=== PATIENT | female | born 1950 | race Caucasian/White ===

== ENCOUNTER 2018-02-01 12:34 | Outpatient (CLI) | payer MEDICARE, OTHER ==
--- NOTE | 2018-02-01 16:10 | DEXA Report ---
DEXA SCAN: 02/01/2018 CLINICAL INDICATION: Postmenopausal, arthritis. TECHNIQUE: Dual energy x-ray absorptiometry (DXA) was performed on a [employer] system. Regions measured are the AP spine, femoral neck, and, if needed, forearm. COMPARISON: None. In accordance with the International Society for Clinical Densitometry (ISCD) guidelines, data from previous exams may be reanalyzed using current recommendations and techniques. This is done to allow a more accurate basis for comparison with the current study. FINDINGS The data for the lumbar spine is as follows: REGION BMD (g/cm/cm) T-SCORE Z-SCORE L1 0.857 -2.3 -1.6 L2 0.951 -2.1 -1.4 L3 0.993 -1.7 -1.0 L4 1.015 -1.5 -0.8 L1-L4 0.963 -1.8 -1.1 NOTE: All evaluable vertebrae are used for classification. The data for the hip is as follows: REGION BMD (g/cm/cm) T-SCORE Z-SCORE Neck 0.784 -1.8 -0.9 TOTAL 0.803 -1.6 -1.0 NOTE: The femoral neck or total proximal femur, whichever is lowest, is used for classification. IMPRESSION THE WHO CLASSIFICATION BASED ON THE INTERNATIONAL REFERENCE STANDARD IS OSTEOPENIA. THE FRACTURE RISK IS INCREASED. RECOMMENDATION: Patients with diagnosis of osteoporosis or osteopenia should have regular bone mineral density assessment. For those eligible for Medicare, routine testing is allowed once every 2 years. Testing frequency can be increased for patients who have rapidly progressing disease or for those who are receiving medical therapy to restore bone mass. COMMENT: World Health Organization (WHO) definitions for osteoporosis and osteopenia: NORMAL BMD: T-score at 1.0 or higher, fracture risk is low. OSTEOPENIA BMD: T-score between 1.0 and -2.5, fracture risk is increased. OSTEOPOROSIS BMD: T-score at 2.5 or lower, fracture risk high. National Osteoporosis Foundation recommends: 1. Obtain adequate dietary calcium (at least 1200 mg per day) and vitamin D (400 -800 international units per day). 2. Participate, as appropriate, in regular weightbearing and muscle- strengthening exercise. 3. Avoid tobacco use and reduce alcohol and caffeine intake. 4. For more detailed information see the website at www.NOF.org. TD: 02/01/2018 15:04 LISSA
== END 2018-02-01 12:35 | disposition home or self-care (01) ==
LOC: DI 12:34
PROVIDERS: ATTEND Family Medicine
DX: M19.90 Unspecified osteoarthritis, unspecified site (principal); Z78.0 Asymptomatic menopausal state; M85.89 Other specified disorders of bone density and structure, multiple sites
CPT/HCPCS: 77080

== ENCOUNTER 2021-07-07 07:00 | Outpatient (CLI) | payer MEDICARE, OTHER ==
--- NOTE | 2021-07-08 12:12 | XRAY Report ---
PROCEDURE: Ribs 2 View RT INDICATIONS: R SIDE RIB PX TECHNIQUE: 2 views of the right ribs were acquired. COMPARISON: None FINDINGS: Surgical changes and devices: None. Bones and chest wall: No fractures or dislocations. No suspicious bony lesions. Overlying soft tis sues appear unremarkable. Lungs and pleura: The visualized lung appears clear. No pleural effusions or pneumothorax are visib le. IMPRESSION: No displaced rib fracture. Reviewed by: Deidre Meléndez MD, PhD on 07/08/2021 12:10 PM PDT Approved by: Deidre Meléndez MD, PhD on 07/08/2021 12:10 PM PDT Station ID: [id number]
== END 2021-07-07 23:59 | disposition home or self-care (01) ==
LOC: DI.N 07:00
PROVIDERS: ATTEND Family Medicine
DX: R07.81 Pleurodynia (principal)

== ENCOUNTER 2022-05-25 08:52 | Outpatient (CLI) | payer OTHER ==
--- NOTE | 2022-05-25 11:49 | XRAY Report ---
PROCEDURE: Chest 2 View X-Ray INDICATIONS: GROUND LEVEL FALL WITH L SIDED RIB PX TECHNIQUE: 2 view(s) of the chest. COMPARISON: None. FINDINGS: Surgical changes and devices: None. Lungs and pleura: No pleural effusions or pneumothorax. Lungs are clear. Mediastinum: Mediastinal contours are normal. Heart size is normal. Bones and chest wall: No suspicious bony abnormalities. Soft tissues appear unremarkable. IMPRESSION: No acute pulmonary process. Reviewed by: Coretta Wade MD on 05/25/2022 11:47 AM PDT Approved by: Coretta Wade MD on 05/25/2022 11:47 AM PDT Station ID: [id number]
== END 2022-05-25 08:53 | disposition home or self-care (01) ==
LOC: DI.N 08:52
PROVIDERS: ATTEND Physician Assistant
DX: R07.81 Pleurodynia (principal)

== ENCOUNTER 2023-09-07 09:55 | Outpatient (CLI) | payer MEDICARE ==
--- NOTE | 2023-09-07 10:43 | XRAY Report ---
PROCEDURE: Foot 3 View BILAT INDICATIONS: BILATERAL FOOT PX TECHNIQUE: 3 views of the foot were acquired. COMPARISON: None. FINDINGS: Bones: No fractures or dislocations. No suspicious bony lesions. Bilateral scattered areas of mild IP narrowing. No erosions. It is most prominent at the first MTP joint bilaterally. Soft tissues: No suspicious soft tissue calcifications or masses. IMPRESSION: Bilateral scattered areas of mild IP arthritic change. Reviewed by: Coretta Wade MD on 09/07/2023 10:41 AM PDT Approved by: Coretta Wade MD on 09/07/2023 10:41 AM PDT Station ID: [id number]
== END 2023-09-07 09:56 | disposition home or self-care (01) ==
LOC: DI 09:55
PROVIDERS: ATTEND Podiatrist
DX: M19.071 Primary osteoarthritis, right ankle and foot (principal); M19.072 Primary osteoarthritis, left ankle and foot

== ENCOUNTER 2023-09-12 08:17 | Outpatient (CLI) | payer MEDICARE ==
--- NOTE | 2023-09-12 12:17 | CT Report ---
PROCEDURE: ABDOMEN/PELVIS WO INDICATIONS: RECURRENT UTI TECHNIQUE: A CT scan of the abdomen and pelvis was performed without the use of intravenous contrast. Images we re recorded and evaluated at appropriate window settings. Reformats: coronal and sagittal. For radiat ion dose reduction, the following was used: automated exposure control, adjustment of mA and/or kV ac cording to patient size. COMPARISON: None. FINDINGS: Image quality: Excellent. Lung bases and heart: Unremarkable. Liver: No solid mass. Coarse calcification at the dome. Gallbladder and biliary tree: No radiopaque stones or wall thickening. No biliary dilation. Spleen: No splenomegaly. Pancreas: No pancreatic ductal dilation. Adrenals: No adrenal nodule. Kidneys and ureters: No hydronephrosis. No renal cystic lesion which requires follow up. No solid mas s. 1 cm nonobstructing stone in the superior calyx of the left kidney. Bowel and peritoneum: No bowel distension. No pathologic free fluid. Diverticulosis without evidence of diverticulitis. Fecal debris within the small bowel. Lymph nodes: No central or retroperitoneal adenopathy. Vessels: No infrarenal aortic aneurysm. PELVIS Reproductive organs: Calcified uterine fibroid.. Bladder: No wall thickness, accounting for underdistention. Pelvic lymph nodes: No pelvic adenopathy by size criteria. Bones: No aggressive osseous abnormality. Degenerative disc disease and facet arthrosis. Grade 1 ante rolisthesis of L4 on L5 secondary to facet arthrosis. Other: Trace umbilical hernia containing fat. IMPRESSION: No hydronephrosis or obstructing renal stone. 1 cm nonobstructing left-sided nephrolithiasis. Colonic diverticulosis without evidence of diverticulitis. Fecal debris within the small bowel, which may indicate small intestinal bacterial overgrowth versus slow intestinal transit. Reviewed by: Herb Almeida on 09/12/2023 12:15 PM PDT Approved by: Herb Almeida on 09/12/2023 12:15 PM PDT Station ID: [id number]
== END 2023-09-12 08:18 | disposition home or self-care (01) ==
LOC: DI 08:17
PROVIDERS: ATTEND Physician Assistant
DX: N20.0 Calculus of kidney (principal); K57.30 Diverticulosis of large intestine without perforation or abscess without bleeding; R39.15 Urgency of urination; R31.9 Hematuria, unspecified

== ENCOUNTER 2023-11-10 14:07 | Outpatient (CLI) | payer MEDICARE ==
--- NOTE | 2023-11-10 17:32 | Ultrasound Report ---
PROCEDURE: Pelvic w/Transvaginal INDICATIONS: LEIOMYOMA OF UTERUS TECHNIQUE: Real-time scanning was performed of the pelvic organs, with image documentation. Additional endovagi nal scanning was necessary due to incomplete visualization of the adnexal and endometrial structures by transabdominal scanning. COMPARISON: None. FINDINGS: Uterus: Uterus is anteverted and normal in size at 6.7 x 3.5 x 4.9 cm. (Volume of 60.23) The myomet rium is heterogeneous. The endometrium measures 3 mm in combined thickness. Nabothian cysts measuri ng 3.8 x 0.6 x 0.7 cm. Cervix and vagina are otherwise within normal limits. Multiple uterine fibroid s. -Right fundal, intramural, measures 1.1 x 1.6 x 0.7 cm, calcified -Mid anterior intramural, measures 1.3 x 0.9 x 0.9 cm -Mid posterior intramural measures 1.4 x 1.2 x 1.1 cm Ovaries: The right ovary measures 1.9 x 1.3 x 1.4 cm, with a calculated ovarian volume of 1.8 cc. T he left ovary is not well seen. The right ovary has a normal sonographic appearance with less than 1 2 follicles. No adnexal masses are seen. No cystic lesions measuring greater than 3 cm. Other: No pathologic free abdominal or pelvic fluid. IMPRESSION: 1.Fibroid uterus. 2.Endometrial thickness is 3 mm. 3.Left ovary is not well seen. Normal right ovary. Reviewed by: Urban Sanchez MD on 11/10/2023 5:31 PM PST Approved by: Urban Sanchez MD on 11/10/2023 5:31 PM PST Station ID: [id number]
== END 2023-11-10 14:08 | disposition home or self-care (01) ==
LOC: DI 14:07
PROVIDERS: ATTEND Physician Assistant
DX: D25.1 Intramural leiomyoma of uterus (principal)

== ENCOUNTER 2023-11-23 08:00 | Outpatient (CLI) | payer MEDICARE ==
[2023-11-23 16:00] LABS: BILIRUBIN,URINE NEGATIVE (NEGATIVE); GLUCOSE, URINE (UA) NEGATIVE (NEGATIVE); KETONES,URINE (UA) NEGATIVE (NEGATIVE); LEUKOCYTE ESTERASE, URINE TRACE (NEGATIVE); NITRITE,URINE NEGATIVE (NEGATIVE); OCCULT BLOOD,URINE NEGATIVE (NEGATIVE); PROTEIN,URINE TRACE mg/dL (NEGATIVE); UROBILINOGEN,URINE 0.2 (NORMAL) E.U./dL (NORMAL)
[2023-11-23 16:10] LABS: CLARITY,URINE CLOUDY (CLEAR)
[2023-11-23 16:17] LABS: AMORPHOUS SEDIMENT,UR Marked /LPF; BACTERIA,URINE None Seen /HPF (None Seen); RBC,URINE None Seen /HPF (0-5); SQUAMOUS EPITHELIAL CELL,UR RARE Squamous (<= Few); WBC,URINE 0-3 /HPF (0-5)
== END 2023-11-23 23:59 | disposition home or self-care (01) ==
LOC: LAB 08:00
PROVIDERS: ATTEND Urology
DX: Z87.440 Personal history of urinary (tract) infections (principal)
CPT/HCPCS: 81001; 87086

== ENCOUNTER 2023-12-26 06:56 | Outpatient (CLI) | payer MEDICARE | END 2023-12-26 23:59 | disposition critical access hospital (66) | LOC: EMS 06:56 | DX: R53.1 Weakness (principal); M79.672 Pain in left foot; R60.0 Localized edema; N20.0 Calculus of kidney | CPT/HCPCS: A0425; A0429 ==

== ENCOUNTER 2023-12-26 07:19 | Emergency (ER) | payer MEDICARE ==
[2023-12-26] MEDS ORDERED: SODIUM CHLORIDE 0.9% 1,000 ML IV STA (07:31)
[2023-12-26] MEDS ORDERED: ACETAMINOPHEN 325 MG TABLET PO STA (07:32)
[2023-12-26 08:00] LABS: BASOPHILS # (AUTO) 0.1 10^3/uL (0.0-0.1); BASOPHILS % (AUTO) 0.4 %; HCT - HEMATOCRIT 38.7 % (37.0-47.0); LYMPHOCYTES # (AUTO) 0.8 10^3/uL (1.5-3.5); LYMPHOCYTES % (AUTO) 5.3 %; MEAN CORPUSCULAR HEMOGLOBIN 27.1 pg (27.0-31.0); MEAN CORPUSCULAR VOLUME 87.6 fL (81.0-99.0); MEAN PLATELET VOLUME 9.9 fL (7.9-10.8); MONOCYTES # (AUTO) 1.4 10^3/uL (0.0-1.0); MONOCYTES % (AUTO) 9.1 %; NEUTROPHILS # (AUTO) 13.5 10^3/uL (1.5-6.6); NEUTROPHILS % (AUTO) 84.8 %; PLT - PLATELET COUNT 346 10^3/uL (130-450); RED BLOOD COUNT 4.42 10^6/uL (4.20-5.40); RED CELL DISTRIBUTION WIDTH 13.8 % (12.0-15.0); WHITE BLOOD COUNT 15.9 x10^3/uL (4.8-10.8)
[2023-12-26 08:05] LABS: ALBUMIN 3.7 g/dL (3.2-5.5); BILIRUBIN,TOTAL 0.7 mg/dL (0.2-1.0); CALCIUM 9.7 mg/dL (8.5-10.3); CREATININE 0.9 mg/dL (0.6-1.3); POTASSIUM 3.9 mmol/L (3.5-4.5); TOTAL PROTEIN 7.5 g/dL (6.4-8.9)
[2023-12-26 08:16] LABS: BILIRUBIN,URINE SMALL (NEGATIVE); GLUCOSE, URINE (UA) 100 mg/dL (NEGATIVE); KETONES,URINE (UA) 15 mg/dL (NEGATIVE); LEUKOCYTE ESTERASE, URINE SMALL (NEGATIVE); NITRITE,URINE NEGATIVE (NEGATIVE); OCCULT BLOOD,URINE MODERATE (NEGATIVE); PROTEIN,URINE 100 mg/dL (NEGATIVE); UROBILINOGEN,URINE 0.2 (NORMAL) E.U./dL (NORMAL)
[2023-12-26 08:24] LABS: CLARITY,URINE SL. CLOUDY (CLEAR)
--- NOTE | 2023-12-26 08:48 | XRAY Report ---
PROCEDURE: Chest 1V INDICATIONS: weak TECHNIQUE: One view of the chest was acquired. COMPARISON: Chest x-ray 05/17/2022 FINDINGS: Surgical changes and devices: None. Lungs and pleura: No pleural effusions or pneumothorax. Lungs are clear. Mediastinum: Mediastinal contours appear normal. Heart size is normal. Bones and chest wall: No suspicious bony lesions. Overlying soft tissues appear unremarkable. IMPRESSION: No acute cardiopulmonary process. Reviewed by: Coretta Wade MD on 12/26/2023 8:46 AM [facility] Approved by: Coretta Wade MD on 12/26/2023 8:46 AM [facility] Station ID: [id number]
--- NOTE | 2023-12-26 08:49 | XRAY Report ---
PROCEDURE: Knee 3V BL INDICATIONS: pain TECHNIQUE: 3 views of the knee(s) were acquired. COMPARISON: None. FINDINGS: Bones: No fractures or dislocations. No suspicious bony lesions. Moderate bilateral medial as wel l as patellofemoral compartment narrowing. Very minimal lateral compartment narrowing is present. Lat eral patellar subluxation is present. No erosions. Soft tissues: No knee joint effusion. No suspicious soft tissue calcifications or masses. Bilateral chondrocalcinosis. IMPRESSION: Predominantly bicompartmental arthritic change most severe medially as above. Reviewed by: Coretta Wade MD on 12/26/2023 8:48 AM PST Approved by: Coretta Wade MD on 12/26/2023 8:48 AM PST Station ID: [id number]
[2023-12-26 08:51] LABS: WBC,URINE >25 /HPF (0-5)
[2023-12-26 08:52] LABS: BACTERIA,URINE Moderate /HPF (None Seen); SQUAMOUS EPITHELIAL CELL,UR MOD Squamous (<= Few)
[2023-12-26 08:53] LABS: CASTS, URINE 6-10 Granular Casts /LPF
[2023-12-26] MEDS ORDERED: METOPROLOL SUCCINATE 50 MG TABLET PO STA (09:00)
--- NOTE | 2023-12-26 09:36 | ED Physician Documentation ---
History of Present Illness - Stated complaint Stated Complaint: GENERAL WEAKNESS - Chief complaint Chief Complaint: Ext Problem - History obtained from History obtained from: Patient, Family - Additonal information Additional information: Patient is a 73-year-old female with a history of insulin-dependent diabetes presenting for evaluation of generalized weakness. She was scheduled for an elective lithotripsy this morning when she was unable to stand due to weakness in her legs.She also reports having pain in both knees. Denies other falls. Patient has had leg weakness ongoing for several weeks to months. Per the daughter she has primarily been laying in bed And ambulates only a little with a walker. She did not hit her head this morning. Patient reports she just did not feel strong enough to stand. She denies fever, chest pain, shortness of breath, abdominal symptoms, vomiting or diarrhea. She denies dysuria. But she does have a history of frequent urinary tract infections. She was scheduled for the elective procedure with Dr. Haile Monae. Review of Systems Constitutional: denies: Fever Cardiac: denies: Chest pain / pressure Respiratory: denies: Dyspnea, Cough GI: denies: Abdominal Pain, Vomiting, Diarrhea : denies: Dysuria Musculoskeletal: reports: Extremity pain Neurologic: reports: Generalized weakness. denies: Head injury PD PAST MEDICAL HISTORY - Past Medical History Past Medical History: Yes Cardiovascular: Hypertension, High cholesterol Neuro: Other Endocrine/Autoimmune: Type 2 diabetes : Kidney stones Psych: Depression, Anxiety Musculoskeletal: Osteopenia - Past Surgical History Past Surgical History: No - Present Medications Home Medications: Ambulatory Orders Medication Instructions Recorded Confirmed Aspirin EC [Ecotrin] 81 mg PO DAILY 11/15/23 12/19/23 Insulin Glargine [Lantus Solostar] 20 units SUBQ QPM 11/15/23 12/19/23 Losartan/Hydrochlorothiazide 1 each PO DAILY 11/15/23 12/19/23 [Losartan-Hctz 100-12.5 mg Tab] Metformin HCl 1,000 mg PO BID 11/15/23 12/19/23 Pantoprazole Sodium 40 mg PO DAILY 11/15/23 12/19/23 Rosuvastatin Calcium 20 mg PO QPM 11/15/23 12/19/23 amLODIPine [Norvasc] 5 mg PO DAILY 11/15/23 12/19/23 Metoprolol Succinate [Toprol Xl] 50 mg PO DAILY 12/19/23 12/19/23 HYDROcod/ACETAM 5/325 [[place] 5/325] 1 tablet PO Q6H PRN #10 tablet 12/26/23 Lidocaine Patch 5% [Lidoderm Patch] 1 patch TOP DAILY PRN #10 patch 12/26/23 cephALEXin [Keflex] 500 mg PO Q6H #28 cap 12/26/23 - Allergies Allergies/Adverse Reactions: Allergies Allergy/AdvReac Type Severity Reaction Status Date / Time No Known Drug Allergies Allergy Verified 12/26/23 07:37 - Social History Does the pt smoke?: No Smoking Status: Never smoker Does the pt drink ETOH?: No Does the pt have substance abuse?: No - Immunizations Immunizations are current?: No - POLST Patient has POLST: No PD ED PE NORMAL - General General: Alert and oriented X 3, No acute distress, Well developed/nourished - HEENT HEENT: Atraumatic, Moist mucous membranes, Pharynx benign - Neck Neck: Supple, no meningeal sign - Cardiac Cardiac: Other (Tachycardic, regular rhythm) - Respiratory Respiratory: No respiratory distress, Clear bilaterally - Abdomen Abdomen: Normal bowel sounds, Soft, Non tender, Non distended - Derm Derm: Warm and dry - Extremities Extremities: No deformity, No edema, No calf tenderness / cord, Other (Pain on range of motion of both knees with no visible deformity, no swelling, no erythema; Patellar reflexes intact bilaterally) - Neuro Neuro: Alert and oriented X 3, No motor deficit, No sensory deficit, Normal speech Results - Vitals Vitals: Vital Signs - 24 hr 12/26/23 12/26/23 12/26/23 07:23 08:17 09:20 Temperature 36.5 C Heart Rate 124 H 104 H 104 H Heart Rate [ Supine] Respiratory 16 18 16 Rate Blood Pressure 146/78 H 147/85 H 144/71 H Blood Pressure [Sitting] Blood Pressure [Supine] O2 Saturation 100 94 93 12/26/23 12/26/23 12/26/23 09:49 13:00 13:46 Temperature Heart Rate 97 92 Heart Rate [ 96 Supine] Respiratory 16 16 Rate Blood Pressure 132/73 H 134/73 H Blood Pressure 140/76 H [Sitting] Blood Pressure 137/76 H [Supine] O2 Saturation 94 93 12/26/23 16:19 Temperature Heart Rate 102 H Heart Rate [ Supine] Respiratory 16 Rate Blood Pressure 138/64 H Blood Pressure [Sitting] Blood Pressure [Supine] O2 Saturation 98 Oxygen O2 Source Room air - EKG (time done) 0809 EKG releavant findings:: EKG personally interpreted by author of this note. Relevant findings are: Rate 113, sinus tachycardia, no STEMI, QTc 440 - Labs Labs: Laboratory Tests 12/26/23 12/26/23 12/26/23 07:46 07:46 07:46 WBC 15.9 H RBC 4.42 Hgb 12.0 Hct 38.7 MCV 87.6 MCH 27.1 MCHC 31.0 L RDW 13.8 Plt Count 346 MPV 9.9 Neut # (Auto) 13.5 H Lymph # (Auto) 0.8 L Scott # (Auto) 1.4 H Eos # (Auto) 0.0 Baso # (Auto) 0.1 Absolute Nucleated RBC 0.00 Nucleated RBC % 0.0 Sodium 136 Potassium 3.9 Chloride 100 L Carbon Dioxide 27 Anion Gap 9.0 BUN 22 H Creatinine 0.9 Estimated GFR (MDRD) 62 L Glucose 342 H Lactic Acid 1.2 Calcium 9.7 Total Bilirubin 0.7 AST 17 ALT 10 Alkaline Phosphatase 84 Total Creatine Kinase 119 Troponin I High Sens Total Protein 7.5 Albumin 3.7 Globulin 3.8 Albumin/Globulin Ratio 1.0 Lipase 47 Urine Color Urine Clarity Urine pH Ur Specific [place] Urine Protein Urine Glucose (UA) Urine Ketones Urine Occult Blood Urine Nitrite Urine Bilirubin Urine Urobilinogen Ur Leukocyte Esterase Urine RBC Urine WBC Ur Squamous Epith Cells Urine Bacteria Urine Casts Ur Microscopic Review Urine Culture Comments 12/26/23 12/26/23 12/26/23 07:46 08:06 09:11 WBC RBC Hgb Hct MCV MCH MCHC RDW Plt Count MPV Neut # (Auto) Lymph # (Auto) Scott # (Auto) Eos # (Auto) Baso # (Auto) Absolute Nucleated RBC Nucleated RBC % Sodium Potassium Chloride Carbon Dioxide Anion Gap BUN Creatinine Estimated GFR (MDRD) Glucose Lactic Acid Calcium Total Bilirubin AST ALT Alkaline Phosphatase Total Creatine Kinase Troponin I High Sens 21.9 H* 25.4 H* Total Protein Albumin Globulin Albumin/Globulin Ratio Lipase Urine Color YELLOW Urine Clarity SL. CLOUDY Urine pH 6.0 Ur Specific [place] >=1.030 H Urine Protein 100 H Urine Glucose (UA) 100 H Urine Ketones 15 H Urine Occult Blood MODERATE H Urine Nitrite NEGATIVE Urine Bilirubin SMALL H Urine Urobilinogen 0.2 (NORMAL) Ur Leukocyte Esterase SMALL H Urine RBC 11-25 H Urine WBC >25 H Ur Squamous Epith Cells MOD Squamous H Urine Bacteria Moderate H Urine Casts 6-10 Granular Casts Ur Microscopic Review INDICATED Urine Culture Comments NOT INDICATED PD Medical Decision Making - ED course Complexity details: reviewed results, re-evaluated patient, d/w patient, d/w family ED course: Patient is a 73-year-old female who was scheduled for an elective Surgical procedure today presenting for evaluation of generalized weakness which has been worsening over at least the past 1 week. She reports pain to bilateral knees. She was unable to get up today due to her weakness and pain. Otherwise denies falls. She is tachycardic upon arrival. Otherwise vital signs are stable. Labs including CBC, chemistries, lactic, urinalysis were obtained and reviewed. Mild leukocytosis of 15,000.High sensitive troponin is 21 and 25 on the recheck. I do not think this suggest ACS. She also does not have symptoms of chest pain or shortness of air. Her EKG is nonischemic. Urine analysis which was a straight cath does have some markers for infection I did add a urine culture. She is prone to urine infections as that she often wears a diaper due to her weakness and is a diabetic. I will treat. She does not appear to be septic. I did obtain order a CT scan of the abdomen and pelvis which is negative for acute process. Dr. Monae is aware of the kidney stone and does not feel this is a contributing factor today. She is doing better here after IV fluids and Tylenol and is able to ambulate a little bit with a walker. At this time I see no reasons for medical admission. She has no red flag signs or symptoms in regards to her back pain.Patient was seen by social work per the daughter's request. PT and OT were consulted and evaluated the patient. She does not meet criteria for SNF placement. Home health has been ordered. Patient and daughter are understanding that patient needs close follow-up with her primary care provider. They are advised on treatment plan including home health and antibiotics. They are advised on concerning symptoms to return for. Departure - Departure Disposition: 01 Home, Self Care Clinical Impression: Generalized weakness, Bilateral knee pain, UTI (urinary tract infection) Condition: Stable Instructions: ED Knee Pain [facility], ED UTI Cystitis Female, ED Weakness [facility] Prescriptions: cephALEXin [Keflex] 500 mg PO Q6H #28 cap Lidocaine Patch 5% [Lidoderm Patch] 1 patch TOP DAILY PRN #10 patch PRN Reason: pain HYDROcod/ACETAM 5/325 [[place] 5/325] 1 tablet PO Q6H PRN #10 tablet PRN Reason: Pain Comments: I am sending prescriptions for pain medication as well as an antibiotic [facility] [place]. I have placed an order for home health. You have been evaluated by social work. I would recommend close follow-up with your primary care provider regarding your recent symptoms. You will also need to reschedule the surgery that was supposed to happen this morning. Return to the emergency department any worsening symptoms. I am prescribing a short course of narcotic pain medication for you. These are potentially dangerous and addictive medications that should be used carefully. These medications may constipate you. Take an [id number]-[id number] stool softener (docusate) twice daily with plenty of water while taking these medications. If you go 24 hours without a bowel movement, take [id number] miralax, per package instructions. Do not drink or drive while taking these medications. If you received narcotic or sedating medications while in the emergency department, do not drive for 24 hours. Store this medication in a safe, secure place and out of reach of children. It is a violation of federal law to give or sell this medication to another person or to use in a manner other than prescribed. The ED will not refill narcotic prescriptions, including prescriptions lost or stolen. To dispose of unwanted medications: 1. [facility] at [address] in [place] has a medication drop box. They accept prescription medications (in pill form) Tuesday through Tuesday 9:00 a.m. to 5:00 p.m. 2. The [facility] [place] [employer] accepts prescription medications (in pill form only) for disposal year round. Call for more informat ion. 3. Contact the [facility] for the next [facility] sponsored prescription drug collection event. , [phone], or [phone]; Note that many narcotic pain relievers also contain Tylenol/acetaminophen. Please ensure that your total dose of acetaminophen from all sources does not exceed 3 g (3000 mg) per day. Forms: PCP List Discharge Date/Time: 12/26/23 16:19
[2023-12-26] MEDS ORDERED: iohexoL-300 100 ML VIAL ONE (10:54)
[2023-12-26] MEDS ORDERED: iohexoL-300 100 ML VIAL IVP ONE (11:19)
--- NOTE | 2023-12-26 11:54 | CT Report ---
PROCEDURE: Abdomen/Pelvis W INDICATIONS: low back pain, wbc 15; uti CONTRAST: Omni 300 100ml TECHNIQUE: After the administration of intravenous contrast, a CT scan of the abdomen and pelvis was performed. Images were recorded and evaluated at appropriate window settings. Reformats: coronal and sagittal. F or radiation dose reduction, the following was used: automated exposure control, adjustment of mA and /or kV according to patient size. COMPARISON: None. FINDINGS: Image quality: Excellent. Lung bases and heart: Unremarkable. Liver: No solid mass. Gallbladder and biliary tree: Within normal limits Spleen: No splenomegaly. Pancreas: No pancreatic ductal dilation. Adrenals: No adrenal nodule. Kidneys and ureters: No hydronephrosis. No renal cystic lesion which requires follow up. No solid mas s. Nonobstructing left superior pole renal calculus measuring 11 mm. Bowel and peritoneum: Small hiatal hernia. No bowel distension. No pathologic free fluid. Normal appe ndix. Lymph nodes: No central or retroperitoneal adenopathy. Vessels: No infrarenal aortic aneurysm. PELVIS Reproductive organs: Unremarkable. Bladder: No abnormal wall thickening, accounting for underdistention. Pelvic lymph nodes: No pelvic adenopathy by size criteria. Bones: No aggressive osseous abnormality. Other: No significant ventral or inguinal hernia. IMPRESSION: 1. No acute process. 2. Normal appendix. 3. Nonobstructing left renal calculus. 4. Small hiatal hernia. Reviewed by: Justin Mercer MD on 12/26/2023 11:52 AM [facility] Approved by: Justin Mercer MD on 12/26/2023 11:52 AM [facility] Station ID: [id number]
[2023-12-26] MEDS ORDERED: cephALEXin 250 MG CAPSULE PO STA (13:03)
[2023-12-26 16:27] VITALS: BP 138/64; O2SAT 98
== END 2023-12-26 16:19 | disposition home or self-care (01) ==
LOC: EDUNIT# → ED 07:19
DX: R53.1 Weakness (principal); N39.0 Urinary tract infection, site not specified; M25.562 Pain in left knee; M25.561 Pain in right knee; E11.9 Type 2 diabetes mellitus without complications; Z79.4 Long term (current) use of insulin; I10 Essential (primary) hypertension
CPT/HCPCS: 36415; 51701; 71045; 73562; 74177; 80053; 81001; 82550; 83605; 83690; 84484; 85025; 87086; 93005; 96360; 97162; 97167; 99284; A9270; Q9967; 81003

== ENCOUNTER 2024-01-30 08:58 | Day surgery (SDC) | payer MEDICARE ==
[2024-01-30] MEDS: LACTATED RINGERS 1,000 ML IV ONE ×2 (09:15→11:13)
[2024-01-30] MEDS ORDERED: PROPOFOL 200 MG/20 ML VIAL IVP ONE (09:36)
[2024-01-30] MEDS ORDERED: MIDAZOLAM 2 MG/2 ML VIAL ONE (09:36)
[2024-01-30] MEDS ORDERED: fentaNYL 100 MCG/2 ML VIAL ONE (09:36)
[2024-01-30] MEDS ORDERED: HYDROmorphone 0.5 MG/0.5 ML SYRINGE IVP PRN (10:05)
[2024-01-30] MEDS ORDERED: fentaNYL 100 MCG/2 ML VIAL IVP PRN (10:05)
[2024-01-30] MEDS ORDERED: MORPHINE 2 MG/ML CARPUJECT IVP PRN (10:05)
[2024-01-30] MEDS ORDERED: METOCLOPRAMIDE 10 MG/2 ML VIAL IVP PRN (10:05)
[2024-01-30] MEDS ORDERED: ATROPINE ABBOJECT 1 MG/10 ML SYRINGE IVP PRN (10:05)
[2024-01-30] MEDS ORDERED: ONDANSETRON 4 MG/2 ML VIAL IVP PRN ×2 (10:05→11:19)
[2024-01-30] MEDS ORDERED: NALOXONE 0.4 MG/ML VIAL IVP PRN (10:05)
[2024-01-30] MEDS ORDERED: ePHEDrine 50 MG/ML VIAL IVP PRN (10:05)
--- NOTE | 2024-01-30 10:06 | ANESTHESIA ---
Pre-Anesthesia VS, & Labs - Diagnosis kidney stone - Procedure ESWL Vital Signs: Temp Pulse Resp BP Pulse Ox O2 Flow Rate 36.6 C 88 15 131/83 H 100 01/30/24 09:00 01/30/24 09:00 01/30/24 09:00 01/30/24 09:00 01/30/24 09:00 Height: 5 ft 3 in Weight (kg): 82.5 kg Body Mass Index: 32.2 BMI Classification: Obese - NPO >8 hours - Is Patient ?: No, Not Applicable - Lab Results Current Lab Results: Laboratory Tests 01/30/24 09:18: POC Whole Bld Glucose 189 H Home Medications and Allergies Home Medications: Ambulatory Orders Acetaminophen [Tylenol] 1,300 mg PO Q6H PRN 01/30/24 Aspirin EC [Ecotrin] 81 mg PO DAILY 11/15/23 Insulin Glargine [Lantus Solostar] 22 units SUBQ QPM 11/15/23 Losartan/Hydrochlorothiazide [Losartan-Hctz 100-12.5 mg Tab] 1 each PO DAILY 11/15/23 Metformin HCl 1,000 mg PO BID 11/15/23 Pantoprazole Sodium 40 mg PO DAILY 11/15/23 Rosuvastatin Calcium 20 mg PO QPM 11/15/23 amLODIPine [Norvasc] 5 mg PO DAILY 11/15/23 Metoprolol Succinate [Toprol Xl] 50 mg PO DAILY 12/19/23 Acetaminophen [Tylenol] 1,300 mg PO Q6H PRN 01/30/24 Allergies/Adverse Reactions: Allergies Allergy/AdvReac Type Severity Reaction Status Date / Time No Known Drug Allergies Allergy Verified 01/30/24 09:26 Anes History & Medical History - Anesthetic History Anesthesia Complications: reports: No previous complications Family history of Anesthesia Complications: Denies Family history of Malignant Hyperthermia: Denies - Medical History Cardiovascular: reports: Hypertension, High cholesterol Pulmonary: reports: None Gastrointestinal: reports: GERD Urinary: reports: Chronic bladder infection, Kidney stones Neuro: reports: Other Musculoskeletal: reports: Osteoarthritis, Osteopenia Endocrine/Autoimmune: reports: Type 2 diabetes Skin: reports: None Smoking Status: Never smoker Psychosocial: reports: Depression, Anxiety History of Cancer?: No - Surgical History General: reports: Colonoscopy Orthopedic: reports: Carpal Tunnel surgery, Other Exam General: Alert, Oriented x3, Cooperative Dental: WNL Mouth Openin Fingerbreadth Neck Mobility: Normal Mallampati classification: II Thyromental Distance: 4-6 cm Respiratory: Lungs clear Cardiovascular: Regular rate Plan Anesthesia Type: General Consent for Procedure(s) Verified and Reviewed: Yes Code Status: Attempt Resuscitation ASA classification: 2-Mild systemic disease Is this case an emergency?: No
[2024-01-30] MEDS ORDERED: ceFAZolin 1 GM VIAL ONE (10:34)
[2024-01-30] MEDS ORDERED: ONDANSETRON 4 MG/2 ML VIAL ONE (10:38)
[2024-01-30] MEDS ORDERED: DEXAMETHASONE 4 MG/ML VIAL ONE (10:38)
[2024-01-30] MEDS ORDERED: LACTATED RINGERS 1,000 ML IV SCH (11:00)
[2024-01-30] MEDS ORDERED: HYDROcod/ACETAM 5/325 MG TABLET PO PRN (11:19)
--- NOTE | 2024-01-30 11:24 | Discharge Plan ---
Discharge Plan Problem Reviewed?: Yes Disposition: Home, Self Care Condition: Good Prescriptions: Docusate Sodium 100Mg Capsule [Colace 100Mg Capsule] 100 mg PO DAILY #7 cap HYDROcod/ACETAM 5/325 [[place] 5/325] 1 tab PO Q4H PRN #10 tablet PRN Reason: Pain Diet: Regular Activity Restrictions: No Restrictions Shower Restrictions: No Driving Restrictions: No Instruction Topics: Lithotripsy Shock Wave Additional Instructions or Follow Up instructions: You will be contacted for followup in [address] Monae No Smoking: If you smoke, Please STOP! Call for help. Follow-up with: Haile Monae MD [Provider Admit Priv/Credential] -
--- NOTE | 2024-01-30 11:28 | OPERATIVE REPORT ---
Operative Report - General Procedure Date: 01/30/24 Planned Procedure: Left extracorporeal shock wave lithotripsy Pre-Op Diagnosis: Left kidney stone Procedure Performed: Left extracorporeal shock wave lithotripsy Post Op Diagnosis: Left kidney stone - Procedure Note Primary Surgeon: Dov Anesthesia Provider: EVON Romo Anesthesia Technique: General LMA Findings: Left upper pole 9mm stone, moderate dissolution Complications: none - Other Other Information/Narrative: After informed consent was obtained the patient was brought to the OR and laid the supine position. The patient was anesthetized per anesthesia protocols. Th e shockwave ultrasound was placed against her left flank. Mine Environmental Engineer imaging confirmed a 9 mm upper pole radiopaque stone on the left. A timeout was performed reconfirming the patient, procedure and laterality. The shockwave dornier 2 probe was used to deliver shocks at a rate of 60 Hz for 100 shocks. We then did a short pause. We then continued at a rate of 90 Hz until 2500 shocks were delivered. The stone showed moderate dissolution. The patient was reversed of anesthesia and brought to the PACU without further incident. She will follow-up in 6 weeks time with a KUB
[2024-01-30 11:49] VITALS: O2SAT 98
[2024-01-30 11:59] VITALS: BP 128/71
--- NOTE | 2024-01-30 13:51 | ANESTHESIA POST OP EVALUATION ---
Anesthesia Post Eval - Post Anesthesia Eval Vitals: Last Vital Signs Temp 36.8 C 01/30/24 11:56 Pulse 69 01/30/24 11:56 Resp 14 01/30/24 11:56 BP 128/71 01/30/24 11:56 Pulse Ox 98 01/30/24 11:56 O2 Flow Rate CV Function Including HR & BP: Stable Pain Control: Satisfactory Nausea & Vomiting: Negative Mental Status: Baseline Respiratory Status: Airway Patent Hydration Status: Satisfactory Anesthesia Complications: None
== END 2024-01-30 08:59 | disposition home or self-care (01) ==
LOC: SDS 08:58
PROVIDERS: ATTEND Urology
DX: N20.0 Calculus of kidney (principal); E66.9 Obesity, unspecified; Z68.32 Body mass index [BMI] 32.0-32.9, adult; E11.9 Type 2 diabetes mellitus without complications; Z79.4 Long term (current) use of insulin; Z79.84 Long term (current) use of oral hypoglycemic drugs
CPT/HCPCS: 50590; J7120

== ENCOUNTER 2024-02-07 12:32 | Outpatient (CLI) | payer MEDICARE ==
--- NOTE | 2024-02-14 10:31 | Mammography Report ---
BILATERAL DIGITAL SCREENING MAMMOGRAM 3D/2D: 02/07/2024 CLINICAL: Routine screening. Comparison is made to exams dated: 12/26/2020 mammogram - [facility], 11/08/2018 mammogram, 2016 mammogram, and 10/26/2016 mammogram - [facility]. There are scattered areas of fibroglandular density in both breasts (category b / 25%-50% glandular t issue). There is a benign calcification in both breasts. No significant masses, calcifications, or other findings are seen in either breast. There has been no significant interval change. IMPRESSION: BENIGN There is no mammographic evidence of malignancy. A 1 year screening mammogram is recommended. Based on the Tyrer Cuzick model (a risk assessment model) the patient's lifetime risk is 3.8% and her 10 year risk is 2.6%. According to the ACR, ACS, and NCCN guidelines, an annual breast MRI exam kings g with mammogram is recommended if the patient's lifetime risk is 20% or greater. This exam was interpreted at Station ID: [id number]. NOTE: For mammograms, a report in lay terms will be sent to the patient. Approximately 15% of breast malignancies will not be visualized mammographically. In the management of a palpable breast mass, a negative mammogram must not discourage biopsy of a clinically suspicious lesion. Electronically Signed By: Amos brito/roe:02/13/2024 18:32:28 letter sent: No_Letter ACR BI-RADS Category 2: Benign Finding(s) 3342F PARENCHYMAL PATTERN: (A) - The breast(s) demonstrate(s) scattered fibroglandular densities. BI-RADS CATEGORY: (2) - 2 RECOMMENDATION: (ANNUAL) - Recommend routine annual screening mammography. [id number] 1 year screening LATERALITY: (B)
== END 2024-02-07 12:33 | disposition home or self-care (01) ==
LOC: DI 12:32
PROVIDERS: ATTEND Physician Assistant
DX: Z12.31 Encounter for screening mammogram for malignant neoplasm of breast (principal); R92.323 Mammographic fibroglandular density, bilateral breasts; R92.1 Mammographic calcification found on diagnostic imaging of breast

== ENCOUNTER 2024-02-07 12:33 | Outpatient (CLI) | payer MEDICARE ==
--- NOTE | 2024-02-07 16:08 | DEXA Report ---
PROCEDURE: Dexa Spine and/or Hip INDICATIONS: POST MENOPAUSAL TECHNIQUE: Dual energy x-ray absorptiometry (DXA) was performed on a [employer] System. Regions measur ed are the AP Spine, femoral neck, and if needed forearm. COMPARISON: DEXA 02/01/2018. FINDINGS: Lumbar Spine: Bone Mineral Density: 1.006 g/cm/cm, T score: -1.5. Since the most recent prior study, there has bee n a statistically significant increase in bone mineral density by 4.5 percent. Left Femoral Neck: Bone Mineral Density: 0.713 g/cm/cm, T score: -2.3. Left Hip: Bone Mineral Density: 0.671 g/cm/cm, T score: -2.7. Since the most recent prior study, there has been a statistically significant decrease in bone mineral density by -16.4 percent. (T score greater or equal to -1.0: NORMAL) (T score from -1.1 to -2.4: OSTEOPENIA) (T score less than or equal to -2.5 to: OSTEOPOROSIS) Impression: By WHO criteria, this patient has osteoporosis. Interval statistical increase in bone mineral density of the lumbar spine. Interval statistical decrease in bone mineral density of the hip. Patients with diagnosis of osteoporosis or osteopenia should have regular bone mineral density assess ment. For those eligible for Medicare, routine testing is allowed once every 2 years. Testing frequ ency can be increased for patients who have rapidly progressing disease or for those who are receivin g medical therapy to restore bone mass. Reviewed by: Amos Hunter MD on 02/07/2024 4:07 PM PDT Approved by: Amos Hunter MD on 02/07/2024 4:07 PM PDT Station ID: [id number]
== END 2024-02-07 12:34 | disposition home or self-care (01) ==
LOC: DI 12:33
PROVIDERS: ATTEND Physician Assistant
DX: M81.0 Age-related osteoporosis without current pathological fracture (principal)

== ENCOUNTER 2024-02-16 08:33 | Outpatient (CLI) | payer MEDICARE | END 2024-02-16 08:34 | disposition critical access hospital (66) | LOC: EMS 08:33 | DX: R41.82 Altered mental status, unspecified (principal); R26.89 Other abnormalities of gait and mobility; R47.81 Slurred speech; R53.1 Weakness; R00.0 Tachycardia, unspecified; R73.9 Hyperglycemia, unspecified | CPT/HCPCS: A0425; A0427 ==

== ENCOUNTER 2024-02-16 09:02 | Inpatient (IN) | payer MEDICARE ==
[2024-02-16] MEDS: ACETAMINOPHEN 500 MG TABLET PO STA (09:35)
[2024-02-16 09:36] LABS: BASOPHILS % (AUTO) 0.6 %; EOSINOPHILS % (AUTO) 0.3 %; HCT - HEMATOCRIT 36.3 % (37.0-47.0); HGB - HEMOGLOBIN 11.3 g/dL (12.0-16.0); LYMPHOCYTES % (AUTO) 3.7 %; MEAN CORPUSCULAR HEMOGLOBIN 26.2 pg (27.0-31.0); MEAN CORPUSCULAR HGB CONC 31.1 g/dL (32.0-36.0); MEAN CORPUSCULAR VOLUME 84.2 fL (81.0-99.0); MEAN PLATELET VOLUME 9.9 fL (7.9-10.8); MONOCYTES % (AUTO) 0.3 %; NEUTROPHILS % (AUTO) 94.8 %; PLT - PLATELET COUNT 159 10^3/uL (130-450); RED BLOOD COUNT 4.31 10^6/uL (4.20-5.40); RED CELL DISTRIBUTION WIDTH 14.3 % (12.0-15.0); WHITE BLOOD COUNT 3.2 x10^3/uL (4.8-10.8)
[2024-02-16 09:39] LABS: ABNORMAL LYMPHS % (MANUAL) 0 %; BAND NEUTROPHILS % (MANUAL) 0 %
--- NOTE | 2024-02-16 09:46 | XRAY Report ---
PROCEDURE: Chest 1V INDICATIONS: fever/AMS TECHNIQUE: One view of the chest was acquired. COMPARISON: None. FINDINGS: Surgical changes and devices: None. Lungs and pleura: No pleural effusions or pneumothorax. Question mild interstitial pulmonary edema.. Mediastinum: Mediastinal contours appear normal. Heart size is normal. Bones and chest wall: No suspicious bony lesions. Overlying soft tissues appear unremarkable. IMPRESSION: Question mild interstitial pulmonary edema. No focal infiltrates. Reviewed by: Wlil Barajas MD on 02/16/2024 9:44 AM PDT Approved by: Will Barajas MD on 02/16/2024 9:44 AM PDT Station ID: [id number]
[2024-02-16 10:03] LABS: BILIRUBIN,URINE NEGATIVE (NEGATIVE); GLUCOSE, URINE (UA) NEGATIVE (NEGATIVE); KETONES,URINE (UA) 15 mg/dL (NEGATIVE); LEUKOCYTE ESTERASE, URINE TRACE (NEGATIVE); NITRITE,URINE POSITIVE (NEGATIVE); OCCULT BLOOD,URINE MODERATE (NEGATIVE); PROTEIN,URINE 100 mg/dL (NEGATIVE); UROBILINOGEN,URINE 0.2 (NORMAL) E.U./dL (NORMAL)
[2024-02-16] MEDS: SODIUM CHLORIDE 0.9% 1,000 ML IV STA (10:05)
[2024-02-16 10:08] LABS: ALBUMIN 3.5 g/dL (3.2-5.5); ALBUMIN/GLOBULIN RATIO 1.1 (1.0-2.2); ALKALINE PHOSPHATASE 280 IU/L (42-121); ALT ALANINE AMINOTRANSFERASE 14 IU/L (10-60); AST ASPARTATE AMINOTRANSFERASE 19 IU/L (10-42); BILIRUBIN,TOTAL 0.7 mg/dL (0.2-1.0); BUN - BLOOD UREA NITROGEN 31 mg/dL (6-20); CALCIUM 9.5 mg/dL (8.5-10.3); CARBON DIOXIDE - CO2 23 mmol/L (21-32); CHLORIDE 97 mmol/L (101-111); CREATININE 1.3 mg/dL (0.6-1.3); ETOH - ETHANOL < 10.0 mg/dL; GFR - MDRD 40 (>89); GLUCOSE 257 mg/dL (74-104); LIPASE 42 U/L (11-82); SODIUM 133 mmol/L (135-145); TOTAL PROTEIN 6.6 g/dL (6.4-8.9)
[2024-02-16 10:18] LABS: DIFFERENTIAL COMMENT MANUAL DIFFERENTIAL; LYMPHOCYTES # (MANUAL) 0.1 10^3/uL (1.5-3.5); LYMPHOCYTES % (MANUAL) 3 %; RBC MORPHOLOGY (MULTIPLE) 2+ ANISOCYTOSIS (NORMAL)
[2024-02-16 10:35] LABS: CLARITY,URINE SL. CLOUDY (CLEAR)
[2024-02-16 10:36] LABS: BACTERIA,URINE Moderate /HPF (None Seen); RBC,URINE 0-5 /HPF (0-5); SQUAMOUS EPITHELIAL CELL,UR RARE Squamous (<= Few)
[2024-02-16 10:50] LABS: CORONAVIRUS 229E-RESP PCR NOT DETECTED; CORONAVIRUS HKU1-RESP PCR NOT DETECTED; CORONAVIRUS NL63-RESP PCR NOT DETECTED; CORONAVIRUS OC43-RESP PCR NOT DETECTED; HUMAN METAPNEUMOVIRUS NOT DETECTED; INFLUENZA A- RESP PCR PANEL NOT DETECTED; INFLUENZA B - RESP PCR PANEL NOT DETECTED; PARAINFLUENZA VIRUS 1 NOT DETECTED; PARAINFLUENZA VIRUS 2 NOT DETECTED; RHINOVIRUS/ENTEROVIRUS NOT DETECTED; SARS-CoV-2 -RESP PCR PANEL NOT DETECTED
[2024-02-16 10:51] LABS: B. PARAPERTUSSIS- RESP PCR PAN NOT DETECTED; B. PERTUSSIS- RESP PCR PANEL NOT DETECTED; C. PNEUMONIAE- RESP PCR PANEL NOT DETECTED; M. PNEUMONIAE- RESP PCR PANEL NOT DETECTED; PARAINFLUENZA VIRUS 3 NOT DETECTED; PARAINFLUENZA VIRUS 4 NOT DETECTED; RSV- RESP PCR PANEL NOT DETECTED
[2024-02-16] MEDS: iohexoL-300 100 ML VIAL IVP ONE (11:17)
--- NOTE | 2024-02-16 11:18 | CT Report ---
PROCEDURE: Head WO INDICATIONS: fever/AMS TECHNIQUE: Noncontrast 4.5 mm thick angled axial sections acquired from the foramen magnum to the vertex. For r adiation dose reduction, the following was used: automated exposure control, adjustment of mA and/or kV according to patient size. COMPARISON: None. FINDINGS: Image quality: Excellent. CSF spaces: Basal cisterns are patent. No extra-axial fluid collections. Ventricles are normal in size and shape. Brain: No midline shift. No intracranial masses or hemorrhage. Adler-white matter interface is norm al. Age-related volume loss and small vessel ischemic change. Skull and face: Calvarium and visualized facial bones are intact, without suspicious lesions. Sinuses: Visualized sinuses and mastoids are clear. IMPRESSION: No acute intracranial pathology. Reviewed by: Will Barajas MD on 02/16/2024 11:17 AM PDT Approved by: Will Barajas MD on 02/16/2024 11:17 AM PDT Station ID: [id number]
--- NOTE | 2024-02-16 11:25 | CT Report ---
PROCEDURE: Abdomen/Pelvis WO INDICATIONS: fever/AMS/known renal stone with recent lithotrips TECHNIQUE: A CT scan of the abdomen and pelvis was performed without the use of intravenous contrast. Images we re recorded and evaluated at appropriate window settings. Reformats: coronal and sagittal. For radiat ion dose reduction, the following was used: automated exposure control, adjustment of mA and/or kV ac cording to patient size. COMPARISON: 12/26/2023. FINDINGS: Image quality: Diagnostic. Lower chest: Small hiatal hernia. Lung bases are clear. Heart size is within normal limits.. Liver: No contour-deforming mass. Gallbladder and biliary tree: No radiopaque stones or wall thickening. No biliary dilation. Spleen: No splenomegaly. Pancreas: No pancreatic ductal dilation. Adrenals: No adrenal nodule. Kidneys and ureters: There are numerous stone fragments present in the left ureter. None of these fra gments measure more than 3 x 5 mm in diameter. There is mild to moderate left hydronephrosis. There i s some air present in the left kidney collecting system or upper pole parenchyma. There are residual stone fragments present in the lower pole. Stomach, bowel and peritoneum: No bowel distension. No pathologic free fluid. Diverticulosis without evidence of diverticulitis. Lymph nodes: Shotty periaortic lymph nodes. Vessels: No infrarenal aortic aneurysm. PELVIS Reproductive organs: Calcified uterine fibroid.. Bladder: No wall thickness, accounting for underdistention. Pelvic lymph nodes: No pelvic adenopathy by size criteria. Bones: No aggressive osseous abnormality. Other: No significant ventral or inguinal hernia. IMPRESSION: Sequelae of recent left renal lithotripsy. Numerous stone fragments in the proximal left ureter. Resi dual fragments in the kidney. Mild to moderate left hydronephrosis, likely postobstructive. The prese nce of air present, likely in the collecting system, suggest possible infection. Reviewed by: Will Barajas MD on 02/16/2024 11:23 AM PDT Approved by: Will Barajas MD on 02/16/2024 11:23 AM PDT Station ID: [id number]
[2024-02-16] MEDS ORDERED: ONDANSETRON 4 MG/2 ML VIAL IVP PRN ×2 (11:33→13:25)
[2024-02-16] MEDS ORDERED: SODIUM CHLORIDE FLUSH 0.9% 10 ML SYRINGE IVP PRN (11:33)
[2024-02-16] MEDS ORDERED: HYDROmorphone 0.5 MG/0.5 ML SYRINGE IVP PRN ×2 (11:33→13:25)
[2024-02-16] MEDS ORDERED: HYDROcod/ACETAM 5/325 MG TABLET PO PRN (11:33)
[2024-02-16] MEDS ORDERED: ONDANSETRON ODT 4 MG TABLET TL PRN (11:33)
--- NOTE | 2024-02-16 11:38 | ED Physician Documentation ---
PD HPI ALTERED MENTAL STATUS - Stated complaint Stated Complaint: ALOC - Chief complaint Chief Complaint: Neuro - History obtained from History obtained from: Patient - Additional information Additional information: Patient is a 73-year-old female with a history of insulin-dependent diabetes presenting for evaluation of altered mental status. Patient was reportedly at her baseline yesterday around 4 PM at [facility]. However during [facility] she became confused and more weak and a friend had to help her in to her home last night. Unclear why they did not call for help last night. This morning she still remained altered so EMS was activated. No focal deficits. EMS reports normal temperatures but she is tachycardic. Patient feels warm to the touch upon arrival. On review of her history she did recently have a lithotripsy for an 11 mm stone in the left kidney. This was done by Dr. Monae. Review of Systems Unable to obtain: AMS PD PAST MEDICAL HISTORY - Past Medical History Cardiovascular: Hypertension, High cholesterol Respiratory: None Neuro: Other Endocrine/Autoimmune: Type 2 diabetes GI: GERD : Chronic bladder infection, Kidney stones HEENT: Chronic vision loss Psych: Depression, Anxiety Musculoskeletal: Osteoarthritis, Osteopenia Derm: None - Past Surgical History Past Surgical History: No General: Colonoscopy Ortho: Carpal Tunnel surgery, Other - Present Medications Home Medications: Ambulatory Orders Medication Instructions Recorded Confirmed Aspirin EC [Ecotrin] 81 mg PO DAILY 11/15/23 01/30/24 Insulin Glargine [Lantus Solostar] 20 units SUBQ QPM 11/15/23 01/30/24 Losartan/Hydrochlorothiazide 1 each PO DAILY 11/15/23 01/30/24 [Losartan-Hctz 100-12.5 mg Tab] Metformin HCl 1,000 mg PO BID 11/15/23 01/30/24 Pantoprazole Sodium 40 mg PO DAILY 11/15/23 01/30/24 Rosuvastatin Calcium 20 mg PO QPM 11/15/23 01/30/24 amLODIPine [Norvasc] 5 mg PO DAILY 11/15/23 01/30/24 Metoprolol Succinate [Toprol Xl] 50 mg PO DAILY 12/19/23 01/30/24 Lidocaine Patch 5% [Lidoderm Patch] 1 patch TOP DAILY PRN #10 patch 12/26/23 01/23/24 Acetaminophen [Tylenol] 1,300 mg PO Q6H PRN 01/30/24 01/30/24 Docusate Sodium 100Mg Capsule 100 mg PO DAILY #7 cap 01/30/24 [Colace 100Mg Capsule] HYDROcod/ACETAM 5/325 [[place] 5/325] 1 tab PO Q4H PRN #10 tablet 01/30/24 DULoxetine [Cymbalta] 60 mg PO DAILY 02/16/24 - Allergies Allergies/Adverse Reactions: Allergies Allergy/AdvReac Type Severity Reaction Status Date / Time No Known Drug Allergies Allergy Verified 01/30/24 09:26 - Social History Does the pt smoke?: No Smoking Status: Never smoker Does the pt drink ETOH?: No Does the pt have substance abuse?: No - Immunizations Immunizations are current?: No - POLST Patient has POLST: No PD ED PE NORMAL - General General: No acute distress, Well developed/nourished. No: Alert and oriented X 3 (Alert and oriented to name and that she is on [facility]. On initial arrival she is unable to give any further information.) - HEENT HEENT: Atraumatic, PERRL, EOMI, Moist mucous membranes - Neck Neck: Supple, no meningeal sign - Cardiac Cardiac: Strong equal pulses, Other (Tachycardic, regular rhythm) - Respiratory Respiratory: No respiratory distress, Clear bilaterally - Abdomen Abdomen: Normal bowel sounds, Soft, Non tender, Non distended - Derm Derm: Warm and dry - Neuro Neuro: incident response lead 2-12 intact, No motor deficit, Normal speech. No: Alert and oriented X 3 (Alert and oriented to person and place) Results - Vitals Vitals: Vital Signs - 24 hr 02/16/24 02/16/24 02/16/24 09:19 09:30 10:03 Temperature 102.2 C H 38.2 C H Heart Rate 141 H 138 H Respiratory 26 H 18 Rate Blood Pressure 179/101 H 165/77 H O2 Saturation 91 L 89 L 95 If not protocol 2 : Oxygen Flow, liters/minute 02/16/24 02/16/24 02/16/24 10:04 11:00 11:30 Temperature 38.2 C H 38.7 C H Heart Rate 135 H 126 H Respiratory 23 15 Rate Blood Pressure 124/58 L 104/53 L O2 Saturation 96 92 If not protocol 2 : Oxygen Flow, liters/minute Oxygen O2 Source Room air - EKG (time done) 0923 EKG releavant findings:: EKG personally interpreted by author of this note. Relevant findings are: Rate 141, sinus tachycardia, QTc 504, no STEMI - Labs Labs: Laboratory Tests 02/16/24 02/16/24 02/16/24 09:29 09:29 09:29 WBC 3.2 L RBC 4.31 Hgb 11.3 L Hct 36.3 L MCV 84.2 MCH 26.2 L MCHC 31.1 L RDW 14.3 Plt Count 159 MPV 9.9 Neut # (Auto) Not Reportable Lymph # (Auto) Not Reportable [place] # (Auto) Not Reportable Eos # (Auto) Not Reportable Baso # (Auto) Not Reportable Absolute Nucleated RBC Not Reportable Total Counted 100 Band Neuts % (Manual) 0 Abnorm Lymph % (Manual) 0 Nucleated RBC % Not Reportable Neutrophils # (Manual) 3.0 Lymphocytes # (Manual) 0.1 L Monocytes # (Manual) 0.0 Eosinophils # (Manual) 0.0 Basophils # (Manual) 0.0 Differential Comment MANUAL DIFFERENTIAL RBC Morph Micro Appear 2+ ANISOCYTOSIS Sodium 133 L Potassium 3.0 L Chloride 97 L Carbon Dioxide 23 Anion Gap 13.0 BUN 31 H Creatinine 1.3 Estimated GFR (MDRD) 40 L Glucose 257 H Lactic Acid Calcium 9.5 Total Bilirubin 0.7 AST 19 ALT 14 Alkaline Phosphatase 280 H Troponin I High Sens 64.3 H* Total Protein 6.6 Albumin 3.5 Globulin 3.1 Albumin/Globulin Ratio 1.1 Lipase 42 Urine Color Urine Clarity Urine pH Ur Specific [place] Urine Protein Urine Glucose (UA) Urine Ketones Urine Occult Blood Urine Nitrite Urine Bilirubin Urine Urobilinogen Ur Leukocyte Esterase Urine RBC Urine WBC Ur Squamous Epith Cells Urine Bacteria Ur Microscopic Review Urine Culture Comments Nasal Adenovirus (PCR) Nasal B. parapertussis DNA (PCR) Nasal Coronavir 229E PCR Nasal Coronavir HKU1 PCR Nasal Coronavir NL63 PCR Nasal Coronavir OC43 PCR Nasal Enterovir/Rhinovir PCR Nasal Influenza B PCR Nasal Influenza A PCR Nasal Parainfluen 1 PCR Nasal Parainfluen 2 PCR Nasal Parainfluen 3 PCR Nasal Parainfluen 4 PCR Nasal RSV (PCR) Nasal B.pertussis DNA PCR Nasal C.pneumoniae (PCR) [place] Human Metapneumo PCR Nasal M.pneumoniae (PCR) Nasal SARS-CoV-2 (PCR) Ethyl Alcohol < 10.0 02/16/24 02/16/24 02/16/24 09:29 09:53 09:53 WBC RBC Hgb Hct MCV MCH MCHC RDW Plt Count MPV Neut # (Auto) Lymph # (Auto) [place] # (Auto) Eos # (Auto) Baso # (Auto) Absolute Nucleated RBC Total Counted Band Neuts % (Manual) Abnorm Lymph % (Manual) Nucleated RBC % Neutrophils # (Manual) Lymphocytes # (Manual) Monocytes # (Manual) Eosinophils # (Manual) Basophils # (Manual) Differential Comment RBC Morph Micro Appear Sodium Potassium Chloride Carbon Dioxide Anion Gap BUN Creatinine Estimated GFR (MDRD) Glucose Lactic Acid 2.9 H Calcium Total Bilirubin AST ALT Alkaline Phosphatase Troponin I High Sens Total Protein Albumin Globulin Albumin/Globulin Ratio Lipase Urine Color YELLOW Urine Clarity SL. CLOUDY Urine pH 6.0 Ur Specific [place] 1.020 Urine Protein 100 H Urine Glucose (UA) NEGATIVE Urine Ketones 15 H Urine Occult Blood MODERATE H Urine Nitrite POSITIVE H Urine Bilirubin NEGATIVE Urine Urobilinogen 0.2 (NORMAL) Ur Leukocyte Esterase TRACE H Urine RBC 0-5 Urine WBC 11-25 H Ur Squamous Epith Cells RARE Squamous Urine Bacteria Moderate H Ur Microscopic Review INDICATED Urine Culture Comments INDICATED Nasal Adenovirus (PCR) NOT DETECTED Nasal B. parapertussis DNA (PCR) NOT DETECTED Nasal Coronavir 229E PCR NOT DETECTED Nasal Coronavir HKU1 PCR NOT DETECTED Nasal Coronavir NL63 PCR NOT DETECTED Nasal Coronavir OC43 PCR NOT DETECTED Nasal Enterovir/Rhinovir PCR NOT DETECTED Nasal Influenza B PCR NOT DETECTED Nasal Influenza A PCR NOT DETECTED Nasal Parainfluen 1 PCR NOT DETECTED Nasal Parainfluen 2 PCR NOT DETECTED Nasal Parainfluen 3 PCR NOT DETECTED Nasal Parainfluen 4 PCR NOT DETECTED Nasal RSV (PCR) NOT DETECTED Nasal B.pertussis DNA PCR NOT DETECTED Nasal C.pneumoniae (PCR) NOT DETECTED [place] Human Metapneumo PCR NOT DETECTED Nasal M.pneumoniae (PCR) NOT DETECTED Nasal SARS-CoV-2 (PCR) NOT DETECTED Ethyl Alcohol PD Medical Decision Making - ED course Complexity details: reviewed results, re-evaluated patient, d/w patient ED course: Patient is a 73-year-old female presenting for evaluation of altered mental status. Tachycardic and febrile on arrival. Sepsis labs ordered. White count is 3.2. Urinalysis is concerning for infection. EKG demonstrates sinus tachycardia. High-sensitivity troponin is 64 which I believe is likely demand related to rate and fever. Potassium 3.0. IV replacement ordered. Lactic 2.9. CT head was obtained with no significant findings. No focal deficits. CT abdomen and pelvis was also obtained given the recent lithotripsy and fever. There are several left-sided ureter stones causing a mild to moderate hydronephrosis. Discussed with on-call urology who will consult on the patient. Patient started on Rocephin. Already given IV fluids. Stable vital signs. Discussed with admitting hospitalist. On reevaluation patient seems to be improved and is able to tell me that she was actually scheduled to follow-up with Dr. Monae tomorrow. Patient understands plan for admission. 1130 - Discussed with Dr. Monae, urology. Request the patient be made n.p.o. and plans to take her to the OR later today. Request medicine for admission. 1135 - Discussed with admitting hospitalist will admit for further management. Departure - Departure Disposition: 66 [facility] DC/Xfer Clinical Impression: Sepsis, Metabolic encephalopathy, Left ureteral stone, UTI (urinary tract infection), Elevated troponin, Hypokalemia Condition: Good
[2024-02-16] MEDS: cefTRIAXone 1 GM in SODIUM CHLORIDE 0.9% MINIBAG 100 ML IV STA (11:57)
--- NOTE | 2024-02-16 12:11 | SURGERY HX AND PHYSICAL(T) ---
Surgical History & Physical - Chief Complaint/HPI Chief Complaint: AMS, left flank pain History of Present Illness: Evangelina is a 73-year-old woman well-known to me with a history of kidney stones and recurrent urinary tract infections. We performed a shockwave lithotripsy on her 3 weeks ago on the left side for a large left renal calculus. She was meant to follow-up with me in a few weeks time however she called the office yesterday stating that she was having worsening left flank pain. She was offered to go to the ER versus come to see me in the office the next morning that is today early. She did not show up for her appointment. I was then notified that she had presented to the ER with altered mental status, fever up to 38.7 Celsius, urinalysis concerning for infection. CT scan showed again stones noted in her left kidney along with some obstructing proximal left ureteral stones and gas in her collecting system concerning for a proximal significant urinary infection. At bedside she appears alert and oriented. - PMH/PSH/Social Hx Does the pt have a hx of MRSA?: No Neurological History: Other Eyes, Ears, Nose, Throat: Chronic vision loss Cardiovascular: Hypertension, High cholesterol Respiratory: None Skin: None Endocrine/Autoimmune: Type 2 diabetes Gastrointestinal: GERD Urinary: Chronic bladder infection, Kidney stones Musculoskeletal: Osteoarthritis, Osteopenia Psychiatric: Depression, Anxiety General: Colonoscopy Orthopedic: Carpal Tunnel surgery, Other Smoking Status: Never smoker Does the pt drink ETOH?: No Does the pt have substance abuse?: No - Home Meds and Allergies Home Medications: Aspirin EC [Ecotrin] 81 mg PO DAILY 11/15/23 Insulin Glargine [Lantus Solostar] 22 units SUBQ QPM 11/15/23 Losartan/Hydrochlorothiazide [Losartan-Hctz 100-12.5 mg Tab] 1 each PO DAILY 11/15/23 Metformin HCl 1,000 mg PO BID 11/15/23 Pantoprazole Sodium 40 mg PO DAILY 11/15/23 Rosuvastatin Calcium 20 mg PO QPM 11/15/23 amLODIPine [Norvasc] 5 mg PO DAILY 11/15/23 Metoprolol Succinate [Toprol Xl] 50 mg PO DAILY 12/19/23 Acetaminophen [Tylenol] 1,300 mg PO Q6H PRN 01/30/24 Allergies/Adverse Reactions: Allergies Allergy/AdvReac Type Severity Reaction Status Date / Time No Known Drug Allergies Allergy Verified 01/30/24 09:26 - Vital Signs Heart Rate: 135 Blood Pressure: 124/58 Temperature: 38.7 C Respiratory Rate: 23 O2 Saturation: 96 Weight (kg): 85.8 kg Height: 1.6 m - Physical Exam General Appearance: positive: No acute distress, Other (clammy) Respiratory: positive: No respiratory distress, Breath sounds nml Cardiovascular: positive: Tachycardia - Patient Review Patient Review: Problems were reviewed with the patient during this visit. Medications were reviewed with the patient during this visit. Allergies were reviewed this patient during this visit. Pertinent Tests Reviewed: All pertitent test for this patient were reviewed. 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 I recommend emergent cystoscopy, left ureteral stent placement to aid in draining her renal system on the left. The risks of infection, bleeding, injury to adjacent structures, need for additional procedures were discussed with the patient. Patient states understanding consents to the above plan. She will be admitted to medicine afterwards for further management.
[2024-02-16] MEDS ORDERED: fentaNYL 100 MCG/2 ML VIAL ONE (12:22)
[2024-02-16] MEDS ORDERED: MIDAZOLAM 2 MG/2 ML VIAL ONE (12:22)
[2024-02-16] MEDS ORDERED: PROPOFOL 200 MG/20 ML VIAL IVP ONE (12:27)
[2024-02-16] MEDS ORDERED: LIDOCAINE-PF 2% 10 ML AMP SUBQ ONE (12:27)
[2024-02-16] MEDS ORDERED: DEXAMETHASONE 4 MG/ML VIAL ONE (12:28)
[2024-02-16] MEDS ORDERED: ONDANSETRON 4 MG/2 ML VIAL ONE (12:28)
--- NOTE | 2024-02-16 13:07 | OPERATIVE REPORT ---
Operative Report - General Admit Date: 02/16/24 Procedure Date: 02/16/24 Planned Procedure: Cystoscopy, left ureteral stent placement Pre-Op Diagnosis: left ureteral stones, fever, UTI Procedure Performed: Cystoscopy, left ureteral stent placement Post Op Diagnosis: left ureteral stones, fever, UTI - Procedure Note Primary Surgeon: Dov Anesthesia Provider: EVON Flowers Anesthesia Technique: General LMA Findings: Purulent urine draining from the kidney Complications: none - Other Other Information/Narrative: After informed consent was obtained the patient was brought to the OR and laid the supine position. Patient was anesthetized per anesthesia protocols and prepped and draped in usual sterile fashion dorsolithotomy position. A formal timeout was performed confirming the patient, procedure and laterality. 22 Vincentian scope was advanced easily into urinary bladder. The bladder had some cloudy urine and otherwise were no other focal lesions or concerns. A sensor wire was used to cannulate the left ureteral orifice. There fluoroscopically this was advanced past some small fluoroscopically radiopaque stones seen in the proximal ureter. There was immediate ruffin of purulent appearing urine. A 6 Vincentian 22 cm double-J stent was placed with good curling noted in the kidney and good curling noted in the bladder. It continued to drain purulent urine. A Shaw catheter was placed to aid in draining the purulent urine. Patient tolerated the procedure well and was reversed from anesthesia. The plan will be to be admitted to the medical service on the floor and possibly the ICU. She will need antibiotics and definitive stone management in the outpatient
[2024-02-16] MEDS: LACTATED RINGERS 1,000 ML IV ONE ×2 (13:09→13:19)
--- NOTE | 2024-02-16 13:16 | XRAY Report ---
PROCEDURE: OR C-Arm Procedure INDICATIONS: URO STENT PLACEMENT FLUORO TIME: 000.1 TECHNIQUE: 20 intraoperative fluoroscopic images of left abdomen. COMPARISON: None. FINDINGS: Intraoperative fluoroscopic images of left abdomen shows placement of left-sided ureteral stent. IMPRESSION: Oral guidance was provided intraoperatively for left-sided ureteral stent placement. Reviewed by: Morales Saldana MD on 02/16/2024 1:15 PM PDT Approved by: Morales Saldana MD on 02/16/2024 1:15 PM PDT Station ID: [id number]
[2024-02-16] MEDS ORDERED: NALOXONE 0.4 MG/ML VIAL IVP PRN (13:25)
[2024-02-16] MEDS ORDERED: ePHEDrine 50 MG/ML VIAL IVP PRN (13:25)
[2024-02-16] MEDS ORDERED: fentaNYL 100 MCG/2 ML VIAL IVP PRN (13:25)
[2024-02-16] MEDS ORDERED: MORPHINE 2 MG/ML CARPUJECT IVP PRN (13:25)
[2024-02-16] MEDS ORDERED: ATROPINE ABBOJECT 1 MG/10 ML SYRINGE IVP PRN (13:25)
--- NOTE | 2024-02-16 13:25 | ANESTHESIA ---
Pre-Anesthesia VS, & Labs - Diagnosis ureteral stone - Procedure ureteral stent placement Vital Signs: Temp Pulse Resp BP Pulse Ox O2 Flow Rate 38.4 C H 117 H 18 99/56 L 96 2 02/16/24 13:09 02/16/24 13:20 02/16/24 13:20 02/16/24 13:20 02/16/24 13:20 02/16/24 11:00 Height: 5 ft 3 in Weight (kg): 85.8 kg Body Mass Index: 33.5 BMI Classification: Obese - NPO >8 hours - Is Patient ?: No - Lab Results Current Lab Results: Laboratory Tests 02/16/24 09:29: Lactic Acid 2.9 H 02/16/24 09:29: Troponin I High Sens 64.3 H* 02/16/24 09:29: Sodium 133 L, Potassium 3.0 L, Chloride 97 L, Carbon Dioxide 23, Anion Gap 13.0, BUN 31 H, Creatinine 1.3, Estimated GFR (MDRD) 40 L, Glucose 257 H, Calcium 9.5, Total Bilirubin 0.7, AST 19, ALT 14, Alkaline Phosphatase 280 H, Total Protein 6.6, Albumin 3.5, Globulin 3.1, Albumin/Globulin Ratio 1.1, Lipase 42, Ethyl Alcohol < 10.0 02/16/24 09:29: WBC 3.2 L, RBC 4.31, Hgb 11.3 L, Hct 36.3 L, MCV 84.2, MCH 26.2 L, MCHC 31.1 L, RDW 14.3, Plt Count 159, MPV 9.9, Neut # (Auto) Not Reportable, Lymph # (Auto) Not Reportable, [place] # (Auto) Not Reportable, Eos # (Auto) Not Reportable, Baso # (Auto) Not Reportable, Absolute Nucleated RBC Not Reportable, Total Counted 100, Band Neuts % (Manual) 0, Abnorm Lymph % (Manual) 0, Nucleated RBC % Not Reportable, Neutrophils # (Manual) 3.0, Lymphocytes # (Manual) 0.1 L, Monocytes # (Manual) 0.0, Eosinophils # (Manual) 0.0, Basophils # (Manual) 0.0, Differential Comment MANUAL DIFFERENTIAL, RBC Morph Micro Appear 2+ ANISOCYTOSIS Fish Bones: 02/16/24 09:29 02/16/24 09:29 Home Medications and Allergies Home Medications: Ambulatory Orders DULoxetine [Cymbalta] 60 mg PO DAILY 02/16/24 Active Medications Acetaminophen (Acetaminophen 325 Mg Tablet) 650 mg PO Q4HR PRN PRN Reason: Pain 1 to 4, or Fever Hydrocodone Bitart/Acetaminophen (Hydrocod/Acetam 5/325 Mg Tablet) 1 tab PO Q4HR PRN PRN Reason: Pain 5 to 7 Atorvastatin Calcium (Atorvastatin 40 Mg Tablet) 40 mg PO QPM [facility] Hydromorphone HCl (Hydromorphone 0.5 Mg/0.5 Ml Syringe) 0.5 mg IVP Q2H PRN PRN Reason: Pain 8 to 10 Potassium Chloride (Potassium Chloride) 10 meq in 100 mls @ 100 mls/hr IV Q1H [facility] Stop: 02/16/24 15:59 Sodium Chloride (Normal Saline 0.9%) 1,000 mls @ 100 mls/hr IV .Q10H [facility] Piperacillin Sod/Tazobactam (Sod 3.375 gm/ Sodium Chloride) 100 mls @ 200 mls/hr IV Q6H [facility] Insulin Human Lispro (Insulin Lispro 300 Unit/3 Ml Pen) 1 - 5 unit SUBQ 0800,1200,1700,2100 [facility]; Protocol Metoprolol Succinate (Metoprolol Succinate 50 Mg Tablet) 50 mg PO DAILY [facility] Ondansetron HCl (Ondansetron 4 Mg/2 Ml Vial) 4 mg IVP Q6HR PRN PRN Reason: Nausea / Vomiting Ondansetron HCl (Ondansetron Odt 4 Mg Tablet) 4 mg TL Q6HR PRN PRN Reason: Nausea / Vomiting Pantoprazole Sodium (Pantoprazole 40 Mg Tablet) 40 mg PO DAILY [facility] Potassium Chloride (Potassium Chloride 10 Meq Capsule) 40 meq PO BID [facility] Stop: 02/17/24 21:01 Sodium Chloride (Sodium Chloride Flush 0.9% 10 Ml Syringe) 10 ml IVP PRN PRN PRN Reason: NEEDED PER PROVIDER ORDERS Sodium Chloride (Sodium Chloride Flush 0.9% 10 Ml Syringe) 10 ml IVP 0100,0900,1700 [facility] Aspirin EC [Ecotrin] 81 mg PO DAILY 11/15/23 Insulin Glargine [Lantus Solostar] 20 units SUBQ QPM 11/15/23 Losartan/Hydrochlorothiazide [Losartan-Hctz 100-12.5 mg Tab] 1 each PO DAILY Metformin HCl 1,000 mg PO BID 11/15/23 Pantoprazole Sodium 40 mg PO DAILY 11/15/23 Rosuvastatin Calcium 20 mg PO QPM 11/15/23 amLODIPine [Norvasc] 5 mg PO DAILY 11/15/23 Metoprolol Succinate [Toprol Xl] 50 mg PO DAILY 12/19/23 Acetaminophen [Tylenol] 1,300 mg PO Q6H PRN 01/30/24 DULoxetine [Cymbalta] 60 mg PO DAILY 02/16/24 Allergies/Adverse Reactions: Allergies Allergy/AdvReac Type Severity Reaction Status Date / Time No Known Drug Allergies Allergy Verified 01/30/24 09:26 Anes History & Medical History - Anesthetic History Anesthesia Complications: reports: No previous complications Family history of Anesthesia Complications: Denies Family history of Malignant Hyperthermia: Denies - Medical History Cardiovascular: reports: Hypertension, High cholesterol Pulmonary: reports: None Gastrointestinal: reports: GERD Urinary: reports: Chronic bladder infection, Kidney stones Neuro: reports: Other Musculoskeletal: reports: Osteoarthritis, Osteopenia Endocrine/Autoimmune: reports: Type 2 diabetes Skin: reports: None Smoking Status: Never smoker Psychosocial: reports: No issues indicated - Surgical History General: reports: Colonoscopy Orthopedic: reports: Carpal Tunnel surgery, Other Exam General: Alert, Oriented x3, Cooperative Dental: WNL Mouth Openin Fingerbreadth Neck Mobility: Normal Mallampati classification: II Thyromental Distance: 4-6 cm Respiratory: Lungs clear Cardiovascular: Regular rate Plan Anesthesia Type: General Consent for Procedure(s) Verified and Reviewed: Yes Code Status: Attempt Resuscitation ASA classification: 3-Severe systemic disease Is this case an emergency?: Yes
[2024-02-16] MEDS: PIPERACILLIN/TAZOBACTAM 3.375 GM in SODIUM CHLORIDE 0.9% MINIBAG 100 ML IV SCH (13:32)
--- NOTE | 2024-02-16 13:33 | HISTORY & PHYSICAL EXAMINATION ---
Chief Complaint - Chief Complaint Chief Complaint: Severe sepsis secondary to a UTI History of Present Illness - Admitted From Admitted From:: ED - History Obtained From Records Reviewed: Yes History obtained from: Patient Exam Limitations: None - History of Present Illness HPI Comment/Other: Patient is a 73-year-old female with a past medical history of insulin-dependent type 2 diabetes, hypertension who presented to the ED due to altered mental status. Patient reportedly been at her baseline at around 4 PM yesterday h owever she has been progressively becoming weaker and more confused. Of note, patient underwent a left extracorporal shockwave lithotripsy on 01/[address] Monae. In the ED she was noted to be severely septic with a lactic acid of 2.9. She was given a dose of IV ceftriaxone [address] abdomen/pelvis was performed which revealed evidence of mild to moderate left-sided hydronephrosis, likely postob structive in nature. There is also sequelae of a recent left renal lithotripsy with numerous fragments of the proximal left ureter. Prior to arrival to the floor she was taken to the OR with urology where she underwent a cystoscopy with left ureteral stent placement. Shaw catheter was placed to aid in draining of purulent urine. She will need definitive stone management in the outpatient. History - Past Medical History Cardiovascular: reports: Hypertension, High cholesterol Respiratory: reports: None Neuro: reports: Other Endocrine/Autoimmune: reports: Type 2 diabetes GI: reports: GERD : reports: Chronic bladder infection, Kidney stones HEENT: reports: Chronic vision loss Psych: reports: Depression, Anxiety Musculoskeletal: reports: Osteoarthritis, Osteopenia Derm: reports: None MRSA Hx?: No - Past Surgical History General: reports: Colonoscopy Ortho: reports: Carpal Tunnel surgery, Other - POLST Patient has POLST: No Meds/Allgy - Home Medications Home Medications: Ambulatory Orders Medication Instructions Recorded Confirmed Aspirin EC [Ecotrin] 81 mg PO DAILY 11/15/23 01/30/24 Insulin Glargine [Lantus Solostar] 20 units SUBQ QPM 11/15/23 01/30/24 Losartan/Hydrochlorothiazide 1 each PO DAILY 11/15/23 01/30/24 [Losartan-Hctz 100-12.5 mg Tab] Metformin HCl 1,000 mg PO BID 11/15/23 01/30/24 Pantoprazole Sodium 40 mg PO DAILY 11/15/23 01/30/24 Rosuvastatin Calcium 20 mg PO QPM 11/15/23 01/30/24 amLODIPine [Norvasc] 5 mg PO DAILY 11/15/23 01/30/24 Metoprolol Succinate [Toprol Xl] 50 mg PO DAILY 12/19/23 01/30/24 Lidocaine Patch 5% [Lidoderm Patch] 1 patch TOP DAILY PRN #10 patch 12/26/23 01/23/24 Acetaminophen [Tylenol] 1,300 mg PO Q6H PRN 01/30/24 01/30/24 Docusate Sodium 100Mg Capsule 100 mg PO DAILY #7 cap 01/30/24 [Colace 100Mg Capsule] HYDROcod/ACETAM 5/325 [[place] 5/325] 1 tab PO Q4H PRN #10 tablet 01/30/24 DULoxetine [Cymbalta] 60 mg PO DAILY 02/16/24 - Allergies Allergies/Adverse Reactions: Allergies Allergy/AdvReac Type Severity Reaction Status Date / Time No Known Drug Allergies Allergy Verified 01/30/24 09:26 Review of Systems - Constitutional Constitutional: reports: Fatigue, Fever, Chills, Malaise, Weakness, Poor appetite - Cardiovascular Cariovascular: reports: Palpitations. denies: Chest pain, Edema - Respiratory Respiratory: denies: Cough, Sputum production, Wheezing, Snoring - Gastrointestinal Gastrointestinal: reports: Poor appetite. denies: Abdominal pain, Abdominal distention, Constipation, Diarrhea - Genitourinary Genitourinary: reports: Dysuria, Urgency - Neurological Neurological: reports: General weakness. denies: Focal weakness - All Other Systems All Other Systems: reports: Reviewed and negative Prior Level of Functionality: Independent. Exam - Vital Signs Reviewed Vital Signs: Yes Vital Signs: Vital Signs x48h Temp Pulse Resp BP Pulse Ox O2 Flow Rate 02/16/24 13:30 114 H 18 84/54 L 98 02/16/24 13:25 38.1 C H 117 H 18 96/50 L 96 02/16/24 13:20 117 H 18 99/56 L 96 02/16/24 13:15 119 H 16 88/57 L 96 02/16/24 13:09 38.4 C H 120 H 18 100/63 95 02/16/24 12:14 38.7 C H 135 H 23 124/58 L 96 02/16/24 12:00 134 H 15 105/55 L 92 02/16/24 11:30 126 H 15 104/53 L 92 02/16/24 11:00 38.7 C H 135 H 23 124/58 L 96 2 02/16/24 10:04 38.2 C H 02/16/24 10:03 38.2 C H 138 H 18 165/77 H 95 2 02/16/24 09:30 89 L 02/16/24 09:19 102.2 C H 141 H 26 H 179/101 H 91 L - Physical Exam General Appearance: positive: Mild distress Eyes Bilateral: positive: Normal inspection, PERRL, EOMI Respiratory: positive: No respiratory distress, Breath sounds nml Cardiovascular: positive: No murmur, No gallop, Tachycardia. negative: Irregularly irregular Abdomen: positive: Non-tender, No organomegaly Skin: positive: Warm, Dry, Pallor Neurologic/Psychiatric: positive: Oriented x3, CN's nml (2-12) Conclusion/Plan - Problem List (1) Severe sepsis Conclusion/Plan: -- Severe sepsis secondary to a UTI. --Underwent cystoscopy with left-sided stent placement. Will need definitive stone management as an outpatient. --She is currently draining purulent urine. --Blood and urine cultures are currently pending. -- Started on IV Zosyn. --Close monitoring in the ICU. Will start on aggressive IV fluid resuscitation. --Trend lactic acid until clearance. (2) Type 2 diabetes mellitus Conclusion/Plan: --Holding home metformin and Lantus. Started on sliding scale insulin. (3) Hypertension Conclusion/Plan: --Holding home antihypertensives in setting of severe sepsis with low blood pressures. (4) Left ureteral stone Conclusion/Plan: --Underwent cystoscopy with stent placement earlier today. --Left-sided hydronephrosis seen on CT scan. (5) UTI (urinary tract infection) Conclusion/Plan: --Continue IV Zosyn as above. Blood and urine cultures ordered. - Lab Results Fish Bones: 02/16/24 09:29 02/16/24 09:29 - Diagnostic Imaging Results Diagnostic Imaging Results: positive: Final report reviewed
[2024-02-16] MEDS: LACTATED RINGERS 1,000 ML IV SCH (14:23)
[2024-02-16] MEDS: POTASSIUM CHLOR 10 MEQ/100 ML 10 MEQ/100 ML BAG IV SCH ×2 (14:40→20:02)
[2024-02-16] MEDS: SODIUM CHLORIDE FLUSH 0.9% 10 ML SYRINGE IVP SCH (15:45)
[2024-02-16] MEDS: SODIUM CHLORIDE 0.9% 1,000 ML IV SCH (16:46)
[2024-02-16] MEDS: INSULIN LISPRO 300 UNIT/3 ML PEN SUBQ SCH ×2 (17:23→21:23)
[2024-02-16 20:00] LABS: CALCIUM, IONIZED 1.11 mmol/L (1.15-1.33); VBG PH 7.386 (7.31-7.41)
[2024-02-16 20:08] LABS: MAGNESIUM 1.2 mg/dL (1.7-2.3); PHOSPHORUS 2.8 mg/dL (2.5-5.0)
[2024-02-16] MEDS ORDERED: INSULIN LISPRO 300 UNIT/3 ML PEN SUBQ SCH ×2 (20:22→21:00)
[2024-02-16] MEDS: ATORVASTATIN 40 MG TABLET PO SCH (20:26)
--- NOTE | 2024-02-16 20:50 | ANESTHESIA POST OP EVALUATION ---
Anesthesia Post Eval - Post Anesthesia Eval Vitals: Last Vital Signs Temp 36.9 C 02/16/24 20:00 Pulse 92 02/16/24 20:00 Resp 15 02/16/24 20:00 BP 105/84 H 02/16/24 20:00 Pulse Ox 98 02/16/24 20:00 O2 Flow Rate 2 02/16/24 20:00 CV Function Including HR & BP: Stable Pain Control: Satisfactory Nausea & Vomiting: Negative Mental Status: Baseline Respiratory Status: Airway Patent Hydration Status: Satisfactory Anesthesia Complications: None
[2024-02-16] MEDS ORDERED: NON FORMULARY MED (Rosuvastatin Calcium [Rosuvastatin Calcium] 20 MG Tablet) PO SCH (21:00)
[2024-02-16] MEDS ORDERED: POTASSIUM CHLORIDE 10 MEQ CAPSULE PO SCH (21:00)
[2024-02-16] MEDS: MAGNESIUM SULFATE 2 GRAM 2 GM/50 ML BAG IV SCH (21:29)
[2024-02-17 04:50] LABS: BASOPHILS % (AUTO) 0.4 %; EOSINOPHILS % (AUTO) 1.1 %; HCT - HEMATOCRIT 29.9 % (37.0-47.0); HGB - HEMOGLOBIN 9.4 g/dL (12.0-16.0); LYMPHOCYTES % (AUTO) 2.2 %; MEAN CORPUSCULAR HEMOGLOBIN 26.6 pg (27.0-31.0); MEAN CORPUSCULAR HGB CONC 31.4 g/dL (32.0-36.0); MEAN CORPUSCULAR VOLUME 84.7 fL (81.0-99.0); MEAN PLATELET VOLUME 10.9 fL (7.9-10.8); MONOCYTES % (AUTO) 3.2 %; PLT - PLATELET COUNT 137 10^3/uL (130-450); RED BLOOD COUNT 3.53 10^6/uL (4.20-5.40); RED CELL DISTRIBUTION WIDTH 14.7 % (12.0-15.0); WHITE BLOOD COUNT 25.8 x10^3/uL (4.8-10.8)
[2024-02-17 05:01] LABS: ABNORMAL LYMPHS % (MANUAL) 0 %
[2024-02-17 05:09] LABS: CALCIUM, IONIZED 1.12 mmol/L (1.15-1.33); VBG PH 7.365 (7.31-7.41)
[2024-02-17 05:23] LABS: PHOSPHORUS 2.5 mg/dL (2.5-5.0)
[2024-02-17 05:47] LABS: MAGNESIUM 2.4 mg/dL (1.7-2.3)
[2024-02-17 06:25] LABS: CALCIUM 8.7 mg/dL (8.5-10.3); CREATININE 1.2 mg/dL (0.6-1.3)
[2024-02-17 06:41] LABS: BAND NEUTROPHILS % (MANUAL) 18 %; DIFFERENTIAL COMMENT MANUAL DIFFERENTIAL; LYMPHOCYTES # (MANUAL) 1.8 10^3/uL (1.5-3.5); LYMPHOCYTES % (MANUAL) 7 %; MONOCYTES # (MANUAL) 0.5 10^3/uL (0.0-1.0); NEUTROPHILS # (MANUAL) 23.5 10^3/uL (1.5-6.6); PLATELET ESTIMATE, MANUAL NORMAL (130-450,000) (NORMAL); RBC MORPHOLOGY (MULTIPLE) NORMAL APPEARANCE (NORMAL)
[2024-02-17] MEDS: ENOXAPARIN 40 MG/0.4 ML SYRINGE SUBQ SCH (08:01)
[2024-02-17] MEDS: INSULIN LISPRO 300 UNIT/3 ML PEN SUBQ SCH (08:01)
[2024-02-17] MEDS: PANTOPRAZOLE 40 MG TABLET PO SCH (08:01)
[2024-02-17] MEDS: METOPROLOL SUCCINATE 50 MG TABLET PO SCH (08:08)
[2024-02-17] MEDS: cefTRIAXone 2 GM in SODIUM CHLORIDE 0.9% MINIBAG 100 ML IV SCH (08:16)
--- NOTE | 2024-02-17 10:19 | PROVIDER PROGRESS NOTE ---
Assessment/Plan - Problem List (1) Severe sepsis Assessment/Plan: (1) Severe sepsis Conclusion/Plan: -- Severe sepsis secondary to a UTI. --Underwent cystoscopy with left-sided stent placement. Will need definitive stone management as an outpatient. --She is currently draining purulent urine. --Blood and urine cultures positive for E. coli. Repeat blood cultures ordered. -- Switched from IV Zosyn to ceftriaxone on 02/16. Will need 14 days of IV antibiotics followed by low dose chronic antibiotics per Urology. (2) Type 2 diabetes mellitus Conclusion/Plan: --Holding home metformin. Restarted on home Lantus 20 units with SSI. (3) Hypertension Conclusion/Plan: --Holding home antihypertensives in setting of severe sepsis with low blood pressures. (4) Left ureteral stone Conclusion/Plan: --Underwent cystoscopy with stent placement on 02/15. Outpatient follow up for stone management. --Left-sided hydronephrosis seen on CT scan. (5) UTI (urinary tract infection) Conclusion/Plan: --As above. - Current Meds Current Meds: Current Medications Generic Name Dose Route Start Last Admin Trade Name Freq PRN Reason Stop Dose Admin Atorvastatin Calcium 40 mg 02/16/24 21:00 02/16/24 20:26 Atorvastatin 40 Mg Tablet PO 40 mg QPM CIRA Administration Enoxaparin Sodium 40 mg 02/17/24 09:00 02/17/24 08:01 Enoxaparin 40 Mg/0.4 Ml Syringe SUBQ 40 mg DAILY CIRA Administration Sodium Chloride 1,000 mls @ 100 mls/hr 02/16/24 12:00 02/17/24 08:02 Normal Saline 0.9% IV 100 mls/hr .Q10H CIRA Administration Ceftriaxone Sodium 2 gm/ 100 mls @ 200 mls/hr 02/17/24 09:00 02/17/24 09:12 Sodium Chloride IV Infused DAILY CIRA Infusion Insulin Human Lispro 1 - 9 unit 02/17/24 08:00 02/17/24 08:01 Insulin Lispro 300 Unit/3 Ml Pen SUBQ 9 unit 0800,1200,1700,2100 CIRA Administration Protocol Metoprolol Succinate 50 mg 02/17/24 09:00 02/17/24 08:08 Metoprolol Succinate 50 Mg Tablet PO Not Given DAILY CIRA Pantoprazole Sodium 40 mg 02/17/24 09:00 02/17/24 08:01 Pantoprazole 40 Mg Tablet PO 40 mg DAILY CIRA Administration Sodium Chloride 10 ml 02/16/24 17:00 02/17/24 08:02 Sodium Chloride Flush 0.9% 10 Ml Syringe IVP 10 ml 0100,0900,1700 CIRA Administration - Lab Result Fish Bone Diagrams: 02/17/24 04:32 02/17/24 04:32 - Additional Planning My Orders: My Active Orders 02/16/24 11:33 Activity Orders [RC] Q2HR IO [RC] IOSHIFT Incentive Spirometry - RT [RC] TID Initiate Bowel Care Protocol [RC] .protocol Initiate Line Care Protocol [RC] QSHIFT Initiate Personal Care Protoco [RC] .protocol Oxygen Therapy [RC] .PRN Telemetry (24 Hour) [RC] Q4HR Vital Signs [RC] Q1HR Acetaminophen [Tylenol] 650 mg PO Q4HR PRN HYDROcod/ACETAM 5/325 [Morse 5/325] 1 tab PO Q4HR PRN HYDROmorphone 0.5MG SYRINGE [Dilaudid 0.5MG Syringe] 0.5 mg IVP Q2H PRN Ondansetron Inj [Zofran Inj] 4 mg IVP Q6HR PRN Ondansetron Odt [Zofran Odt] 4 mg TL Q6HR PRN Sodium Chloride Flush 0.9% [Normal Saline Flush 0.9%] 10 ml IVP PRN PRN Code Status [OTHERS] Routine Condition of Patient [OTHERS] Routine DVT Prophylaxis [OTHERS] Routine 02/16/24 11:35 SCDs [RC] QSHIFT 02/16/24 12:00 Sodium Chloride 0.9% [Normal Saline 0.9%] 1,000 ml IV 100 mls/hr 02/16/24 12:21 Blood Glucose Checks - Eating [RC] 0800,1200,1700,2100 Initiate Hypoglycemia Protocol [RC] .protocol 02/16/24 17:00 Sodium Chloride Flush 0.9% [Normal Saline Flush 0.9%] 10 ml IVP 0100,0900,1700 02/16/24 19:37 Initiate ICU Electrolyte Prot. [RC] QSHIFT 02/16/24 21:00 Atorvastatin [Lipitor] 40 mg PO QPM 02/17/24 Breakfast Carb-controlled Diet [DIET] 02/17/24 08:00 Insulin Lispro [Humalog Kwikpen U-100] 1 - 9 unit SUBQ 0800,1200,1700,2100 02/17/24 09:00 Blood Culture [CULTURE, BLOOD #2] [RM] DAILY Enoxaparin [Lovenox] 40 mg SUBQ DAILY Metoprolol Succinate [Toprol Xl] 50 mg PO DAILY Pantoprazole [Protonix] 40 mg PO DAILY cefTRIAXone [Rocephin] 2 gm Sodium Chloride 0.9% Minibag [Normal Saline 0.9% Minibag] 100 ml IV DAILY 02/17/24 21:00 Insulin Glargine-Yfgn [Semglee] 20 unit SUBQ QPM 02/18/24 05:00 BMP - BASIC METABOLIC PANEL [CHEM] DAILYLAB CBC [CBC - COMP BLD CT W/AUTO DIFF] [HEME] DAILYLAB 02/19/24 05:00 BMP - BASIC METABOLIC PANEL [CHEM] DAILYLAB CBC [CBC - COMP BLD CT W/AUTO DIFF] [HEME] DAILYLAB 02/20/24 05:00 BMP - BASIC METABOLIC PANEL [CHEM] DAILYLAB CBC [CBC - COMP BLD CT W/AUTO DIFF] [HEME] DAILYLAB 02/21/24 05:00 BMP - BASIC METABOLIC PANEL [CHEM] DAILYLAB CBC [CBC - COMP BLD CT W/AUTO DIFF] [HEME] DAILYLAB Subjective - Subjective Patient Reports: Feeling Better, No Complaints Objective Vital Signs: Vital Signs - 24 hr 02/16/24 02/16/24 02/16/24 11:00 11:30 12:00 Temperature 38.7 C H Heart Rate 135 H 126 H 134 H Heart Rate [ Monitoring electrodes] Respiratory 23 15 15 Rate Blood Pressure 124/58 L 104/53 L 105/55 L Blood Pressure [Left Brachial artery] Blood Pressure [Right Brachial artery] O2 Saturation 96 92 92 If not protocol 2 : Oxygen Flow, liters/minute 02/16/24 02/16/24 02/16/24 12:14 13:09 13:15 Temperature 38.7 C H 38.4 C H Heart Rate 135 H 120 H 119 H Heart Rate [ Monitoring electrodes] Respiratory 23 18 16 Rate Blood Pressure 124/58 L 100/63 88/57 L Blood Pressure [Left Brachial artery] Blood Pressure [Right Brachial artery] O2 Saturation 96 95 96 If not protocol : Oxygen Flow, liters/minute 02/16/24 02/16/24 02/16/24 13:20 13:25 13:30 Temperature 38.1 C H Heart Rate 117 H 117 H 114 H Heart Rate [ Monitoring electrodes] Respiratory 18 18 18 Rate Blood Pressure 99/56 L 96/50 L 84/54 L Blood Pressure [Left Brachial artery] Blood Pressure [Right Brachial artery] O2 Saturation 96 96 98 If not protocol : Oxygen Flow, liters/minute 02/16/24 02/16/24 02/16/24 13:35 13:40 13:46 Temperature 37.4 C Heart Rate 113 H 117 H 115 H Heart Rate [ Monitoring electrodes] Respiratory 17 18 17 Rate Blood Pressure 91/52 L 80/51 L 93/55 L Blood Pressure [Left Brachial artery] Blood Pressure [Right Brachial artery] O2 Saturation 98 99 97 If not protocol : Oxygen Flow, liters/minute 02/16/24 02/16/24 02/16/24 13:51 13:55 14:16 Temperature 37.2 C Heart Rate 115 H 116 H Heart Rate [ Monitoring electrodes] Respiratory 17 17 Rate Blood Pressure 93/51 L 95/57 L Blood Pressure [Left Brachial artery] Blood Pressure [Right Brachial artery] O2 Saturation 95 99 If not protocol 2 : Oxygen Flow, liters/minute 02/16/24 02/16/24 02/16/24 14:30 14:45 15:00 Temperature 36.4 C L Heart Rate Heart Rate [ 120 H 119 H 121 H Monitoring electrodes] Respiratory 18 18 19 Rate Blood Pressure Blood Pressure 85/56 L 82/55 L 80/49 L [Left Brachial artery] Blood Pressure [Right Brachial artery] O2 Saturation 96 96 96 If not protocol 2 2 2 : Oxygen Flow, liters/minute 02/16/24 02/16/24 02/16/24 15:15 15:30 16:00 Temperature Heart Rate Heart Rate [ 117 H 115 H 116 H Monitoring electrodes] Respiratory 18 18 18 Rate Blood Pressure Blood Pressure 96/53 L 83/50 L [Left Brachial artery] Blood Pressure 97/77 [Right Brachial artery] O2 Saturation 95 94 96 If not protocol 2 2 2 : Oxygen Flow, liters/minute 02/16/24 02/16/24 02/16/24 16:32 17:00 17:30 Temperature 36.8 C Heart Rate Heart Rate [ 108 H 94 91 Monitoring electrodes] Respiratory 18 17 17 Rate Blood Pressure Blood Pressure [Left Brachial artery] Blood Pressure 102/63 102/70 91/63 [Right Brachial artery] O2 Saturation 96 97 98 If not protocol 2 2 2 : Oxygen Flow, liters/minute 02/16/24 02/16/24 02/16/24 18:00 18:30 19:00 Temperature Heart Rate Heart Rate [ 94 90 86 Monitoring electrodes] Respiratory 18 16 17 Rate Blood Pressure Blood Pressure [Left Brachial artery] Blood Pressure 92/65 97/67 97/64 [Right Brachial artery] O2 Saturation 97 97 96 If not protocol 2 2 2 : Oxygen Flow, liters/minute 02/16/24 02/16/24 02/16/24 20:00 21:00 22:00 Temperature 36.9 C 37.0 C Heart Rate Heart Rate [ 92 92 79 Monitoring electrodes] Respiratory 15 16 17 Rate Blood Pressure Blood Pressure [Left Brachial artery] Blood Pressure 105/84 H 115/77 96/63 [Right Brachial artery] O2 Saturation 98 94 94 If not protocol 2 : Oxygen Flow, liters/minute 02/16/24 02/17/24 02/17/24 23:00 00:00 01:00 Temperature 36.3 C L 36.2 C L Heart Rate Heart Rate [ 68 65 63 Monitoring electrodes] Respiratory 16 15 16 Rate Blood Pressure Blood Pressure [Left Brachial artery] Blood Pressure 89/56 L 92/58 L 95/67 [Right Brachial artery] O2 Saturation 94 93 94 If not protocol : Oxygen Flow, liters/minute 02/17/24 02/17/24 02/17/24 02:00 03:00 04:00 Temperature 36.3 C L 36.4 C L Heart Rate Heart Rate [ 60 62 64 Monitoring electrodes] Respiratory 15 14 12 Rate Blood Pressure Blood Pressure [Left Brachial artery] Blood Pressure 91/63 85/59 L 114/75 [Right Brachial artery] O2 Saturation 95 94 93 If not protocol : Oxygen Flow, liters/minute 02/17/24 02/17/24 02/17/24 05:00 06:00 07:00 Temperature 36.4 C L 36.4 C L 36.4 C L Heart Rate Heart Rate [ 72 75 67 Monitoring electrodes] Respiratory 17 19 15 Rate Blood Pressure Blood Pressure [Left Brachial artery] Blood Pressure 90/73 98/63 95/54 L [Right Brachial artery] O2 Saturation 94 92 95 If not protocol : Oxygen Flow, liters/minute 02/17/24 02/17/24 08:00 09:00 Temperature 36.5 C Heart Rate Heart Rate [ 76 77 Monitoring electrodes] Respiratory 16 18 Rate Blood Pressure Blood Pressure [Left Brachial artery] Blood Pressure 107/65 90/57 L [Right Brachial artery] O2 Saturation 93 92 If not protocol : Oxygen Flow, liters/minute Oxygen O2 Source Room air I&O (Last 24 Hrs): Intake and Output Totals x24h 02/15/24 02/16/24 02/17/24 23:59 23:59 23:59 Intake Total 1850 2810 Output Total 932 350 Balance 918 2460 General: Alert, Oriented x3 Cardiovascular: Regular rate, Normal S1, Normal S2 Respiratory: Chest non-tender, Breath sounds nml Abdomen: Normal bowel sounds, Soft, No tenderness - Results Results: Laboratory Results WBC 25.8 x10^3/uL (4.8-10.8) H 02/17/24 04:32 RBC 3.53 10^6/uL (4.20-5.40) L 02/17/24 04:32 Hgb 9.4 g/dL (12.0-16.0) L 02/17/24 04:32 Hct 29.9 % (37.0-47.0) L 02/17/24 04:32 MCV 84.7 fL (81.0-99.0) 02/17/24 04:32 MCH 26.6 pg (27.0-31.0) L 02/17/24 04:32 MCHC 31.4 g/dL (32.0-36.0) L 02/17/24 04:32 RDW 14.7 % (12.0-15.0) 02/17/24 04:32 Plt Count 137 10^3/uL (130-450) 02/17/24 04:32 MPV 10.9 fL (7.9-10.8) H 02/17/24 04:32 Neut # (Auto) Not Reportable 02/17/24 04:32 Lymph # (Auto) Not Reportable 02/17/24 04:32 [place] # (Auto) Not Reportable 02/17/24 04:32 Eos # (Auto) Not Reportable 02/17/24 04:32 Baso # (Auto) Not Reportable 02/17/24 04:32 Absolute Nucleated RBC Not Reportable 02/17/24 04:32 Total Counted 100 02/17/24 04:32 Band Neuts % (Manual) 18 % (0-10) H 02/17/24 04:32 Abnorm Lymph % (Manual) 0 % 02/17/24 04:32 Nucleated RBC % Not Reportable 02/17/24 04:32 Neutrophils # (Manual) 23.5 10^3/uL (1.5-6.6) H 02/17/24 04:32 Lymphocytes # (Manual) 1.8 10^3/uL (1.5-3.5) 02/17/24 04:32 Monocytes # (Manual) 0.5 10^3/uL (0.0-1.0) 02/17/24 04:32 Eosinophils # (Manual) 0.0 10^3/uL (0-0.7) 02/17/24 04:32 Basophils # (Manual) 0.0 10^3/uL (0-0.1) 02/17/24 04:32 Differential Comment MANUAL DIFFERENTIAL 02/17/24 04:32 Platelet Estimate NORMAL (130-450,000) (NORMAL) 02/17/24 04:32 RBC Morph Micro Appear NORMAL APPEARANCE (NORMAL) 02/17/24 04:32 VBG pH 7.365 (7.31-7.41) 02/17/24 04:32 Ionized Calcium 1.12 mmol/L (1.15-1.33) L 02/17/24 04:32 Sodium 136 mmol/L (135-145) 02/17/24 04:32 Potassium 4.0 mmol/L (3.5-4.5) 02/17/24 04:32 Chloride 105 mmol/L (101-111) 02/17/24 04:32 Carbon Dioxide 24 mmol/L (21-32) 02/17/24 04:32 Anion Gap 7.0 (6-13) 02/17/24 04:32 BUN 30 mg/dL (6-20) H 02/17/24 04:32 Creatinine 1.2 mg/dL (0.6-1.3) 02/17/24 04:32 Estimated GFR (MDRD) 44 (>89) L 02/17/24 04:32 Glucose 347 mg/dL (74-104) H 02/17/24 04:32 POC Whole Bld Glucose 342 mg/dL (70 - 100) H 02/17/24 07:42 Lactic Acid 2.9 mmol/L (0.5-2.2) H 02/16/24 09:29 Calcium 8.7 mg/dL (8.5-10.3) 02/17/24 04:32 Phosphorus 2.5 mg/dL (2.5-5.0) 02/17/24 04:32 Magnesium 2.4 mg/dL (1.7-2.3) H 02/17/24 04:32 Total Bilirubin 0.7 mg/dL (0.2-1.0) 02/16/24 09:29 AST 19 IU/L (10-42) 02/16/24 09:29 ALT 14 IU/L (10-60) 02/16/24 09:29 Alkaline Phosphatase 280 IU/L (42-121) H 02/16/24 09:29 Troponin I High Sens 64.3 ng/L (2.3-14.8) H* 02/16/24 09:29 Total Protein 6.6 g/dL (6.4-8.9) 02/16/24 09:29 Albumin 3.5 g/dL (3.2-5.5) 02/16/24 09:29 Globulin 3.1 g/dL (2.1-4.2) 02/16/24 09:29 Albumin/Globulin Ratio 1.1 (1.0-2.2) 02/16/24 09:29 Lipase 42 U/L (11-82) 02/16/24 09:29 Urine Color YELLOW 02/16/24 09:53 Urine Clarity SL. CLOUDY (CLEAR) 02/16/24 09:53 Urine pH 6.0 PH (5.0-7.5) 02/16/24 09:53 Ur Specific [place] 1.020 (1.002-1.030) 02/16/24 09:53 Urine Protein 100 mg/dL (NEGATIVE) H 02/16/24 09:53 Urine Glucose (UA) NEGATIVE mg/dL (NEGATIVE) 02/16/24 09:53 Urine Ketones 15 mg/dL (NEGATIVE) H 02/16/24 09:53 Urine Occult Blood MODERATE (NEGATIVE) H 02/16/24 09:53 Urine Nitrite POSITIVE (NEGATIVE) H 02/16/24 09:53 Urine Bilirubin NEGATIVE (NEGATIVE) 02/16/24 09:53 Urine Urobilinogen 0.2 (NORMAL) E.U./dL (NORMAL) 02/16/24 09:53 Ur Leukocyte Esterase TRACE (NEGATIVE) H 02/16/24 09:53 Urine RBC 0-5 /HPF (0-5) 02/16/24 09:53 Urine WBC 11-25 /HPF (0-5) H 02/16/24 09:53 Ur Squamous Epith Cells RARE Squamous (<= Few) 02/16/24 09:53 Urine Bacteria Moderate /HPF (None Seen) H 02/16/24 09:53 Ur Microscopic Review INDICATED 02/16/24 09:53 Urine Culture Comments INDICATED 02/16/24 09:53 Nasal Adenovirus (PCR) NOT DETECTED 02/16/24 09:53 Nasal B. parapertussis DNA (PCR) NOT DETECTED 02/16/24 09:53 Nasal Coronavir 229E PCR NOT DETECTED 02/16/24 09:53 Nasal Coronavir HKU1 PCR NOT DETECTED 02/16/24 09:53 Nasal Coronavir NL63 PCR NOT DETECTED 02/16/24 09:53 Nasal Coronavir OC43 PCR NOT DETECTED 02/16/24 09:53 Nasal Enterovir/Rhinovir PCR NOT DETECTED 02/16/24 09:53 Nasal Influenza B PCR NOT DETECTED 02/16/24 09:53 Nasal Influenza A PCR NOT DETECTED 02/16/24 09:53 Nasal Parainfluen 1 PCR NOT DETECTED 02/16/24 09:53 Nasal Parainfluen 2 PCR NOT DETECTED 02/16/24 09:53 Nasal Parainfluen 3 PCR NOT DETECTED 02/16/24 09:53 Nasal Parainfluen 4 PCR NOT DETECTED 02/16/24 09:53 Nasal RSV (PCR) NOT DETECTED 02/16/24 09:53 Nasal Screen MRSA (PCR) NEGATIVE (NEGATIVE) 02/16/24 14:13 Nasal B.pertussis DNA PCR NOT DETECTED 02/16/24 09:53 Nasal C.pneumoniae (PCR) NOT DETECTED 02/16/24 09:53 [place] Human Metapneumo PCR NOT DETECTED 02/16/24 09:53 Nasal M.pneumoniae (PCR) NOT DETECTED 02/16/24 09:53 Nasal SARS-CoV-2 (PCR) NOT DETECTED 02/16/24 09:53 Ethyl Alcohol < 10.0 mg/dL 02/16/24 09:29 ABX Reporting Has patient been on IV antibiotics over the past 48 hours?: Yes
--- NOTE | 2024-02-17 11:34 | PHARMACY PROGRESS NOTE ---
- Best Possible Medication History Admit Date and Time: 02/16/24 1133 Processed by: Pharmacy Medications reviewed in ED?: No Medication History completed: Yes Patient Interview: Completed Secondary Source(s): Insurance records As the person ultimately responsible for medication therapy, providers are able to order a medication from an existing home medication list in [facility] via the "Reconcile Routine" prior to Confirmation of that medication by support coordinator. Such practice is discouraged except when the physician, in their clinical judgment, deems that a medical need exists for a medication without regard to previous use.
--- NOTE | 2024-02-17 12:27 | PROVIDER PROGRESS NOTE ---
Subjective - General Admit Date: 02/16/24 Procedure Date: 02/16/24 Post Op Days: 1 Procedure Performed: cystoscopy left ureteral stent placement - Review of Systems General: positive: Weakness Gastrointestinal: positive: Other (mild left flank pain) All Other Systems: positive: Reviewed and negative Objective - Patient Data Reviewed Vital Signs: Yes Vital Signs: Vital Signs x48h Temp Pulse Resp BP Pulse Ox 02/17/24 10:00 75 19 79/66 L 95 02/17/24 09:00 77 18 90/57 L 92 02/17/24 08:00 36.5 C 76 16 107/65 93 02/17/24 07:00 36.4 C L 67 15 95/54 L 95 02/17/24 06:00 36.4 C L 75 19 98/63 92 02/17/24 05:00 36.4 C L 72 17 90/73 94 Weight: Weight 02/15/24 02/16/24 02/17/24 23:59 23:59 23:59 Weight (kg) 83.5 kg Intake & Output: Intake and Output Totals x24h 02/15/24 02/16/24 02/17/24 23:59 23:59 23:59 Intake Total 1850 2810 Output Total 932 350 Balance 918 2460 - Lab Results Lab Results: 02/17/24 04:32 02/17/24 04:32 Other Lab Results: Lab Results x24hrs 02/17/24 02/17/24 02/17/24 Range/Units 11:53 07:42 04:32 WBC (4.8-10.8) x10^3/uL RBC (4.20-5.40) 10^6/uL Hgb (12.0-16.0) g/dL Hct (37.0-47.0) % MCV (81.0-99.0) fL MCH (27.0-31.0) pg MCHC (32.0-36.0) g/dL RDW (12.0-15.0) % Plt Count (130-450) 10^3/uL MPV (7.9-10.8) fL Neut # (Auto) Lymph # (Auto) Yell # (Auto) Eos # (Auto) Baso # (Auto) Absolute Nucleated RBC Total Counted Band Neuts % (Manual) (0 - 10) % Abnorm Lymph % (Manual) % Nucleated RBC % Neutrophils # (Manual) (1.5-6.6) 10^3/uL Lymphocytes # (Manual) (1.5-3.5) 10^3/uL Monocytes # (Manual) (0.0-1.0) 10^3/uL Eosinophils # (Manual) (0-0.7) 10^3/uL Basophils # (Manual) (0-0.1) 10^3/uL Differential Comment Platelet Estimate (NORMAL) RBC Morph Micro Appear (NORMAL) VBG pH 7.365 (7.31-7.41) Ionized Calcium 1.12 L (1.15-1.33) mmol/L Sodium (135-145) mmol/L Potassium (3.5-4.5) mmol/L Chloride (101-111) mmol/L Carbon Dioxide (21-32) mmol/L Anion Gap (6-13) BUN (6-20) mg/dL Creatinine (0.6-1.3) mg/dL Estimated GFR (MDRD) (>89) Glucose (74-104) mg/dL POC Whole Bld Glucose 302 H 342 H (70 - 100) mg/dL Calcium (8.5-10.3) mg/dL Phosphorus (2.5-5.0) mg/dL Magnesium (1.7-2.3) mg/dL Nasal Screen MRSA (PCR) (NEGATIVE) 02/17/24 02/17/24 02/17/24 Range/Units 04:32 04:32 04:32 WBC 25.8 H (4.8-10.8) x10^3/uL RBC 3.53 L (4.20-5.40) 10^6/uL Hgb 9.4 L (12.0-16.0) g/dL Hct 29.9 L (37.0-47.0) % MCV 84.7 (81.0-99.0) fL MCH 26.6 L (27.0-31.0) pg MCHC 31.4 L (32.0-36.0) g/dL RDW 14.7 (12.0-15.0) % Plt Count 137 (130-450) 10^3/uL MPV 10.9 H (7.9-10.8) fL Neut # (Auto) Not Reportable Lymph # (Auto) Not Reportable Yell # (Auto) Not Reportable Eos # (Auto) Not Reportable Baso # (Auto) Not Reportable Absolute Nucleated RBC Not Reportable Total Counted 100 Band Neuts % (Manual) 18 H (0 - 10) % Abnorm Lymph % (Manual) 0 % Nucleated RBC % Not Reportable Neutrophils # (Manual) 23.5 H (1.5-6.6) 10^3/uL Lymphocytes # (Manual) 1.8 (1.5-3.5) 10^3/uL Monocytes # (Manual) 0.5 (0.0-1.0) 10^3/uL Eosinophils # (Manual) 0.0 (0-0.7) 10^3/uL Basophils # (Manual) 0.0 (0-0.1) 10^3/uL Differential Comment MANUAL DIFFERENTIAL Platelet Estimate NORMAL (130-450,000) (NORMAL) RBC Morph Micro Appear NORMAL APPEARANCE (NORMAL) VBG pH (7.31-7.41) Ionized Calcium (1.15-1.33) mmol/L Sodium 136 (135-145) mmol/L Potassium 4.0 (3.5-4.5) mmol/L Chloride 105 (101-111) mmol/L Carbon Dioxide 24 (21-32) mmol/L Anion Gap 7.0 (6-13) BUN 30 H (6-20) mg/dL Creatinine 1.2 (0.6-1.3) mg/dL Estimated GFR (MDRD) 44 L (>89) Glucose 347 H (74-104) mg/dL POC Whole Bld Glucose (70 - 100) mg/dL Calcium 8.7 (8.5-10.3) mg/dL Phosphorus 2.5 (2.5-5.0) mg/dL Magnesium 2.4 H (1.7-2.3) mg/dL Nasal Screen MRSA (PCR) (NEGATIVE) 02/16/24 02/16/24 02/16/24 Range/Units 20:19 19:40 19:40 WBC (4.8-10.8) x10^3/uL RBC (4.20-5.40) 10^6/uL Hgb (12.0-16.0) g/dL Hct (37.0-47.0) % MCV (81.0-99.0) fL MCH (27.0-31.0) pg MCHC (32.0-36.0) g/dL RDW (12.0-15.0) % Plt Count (130-450) 10^3/uL MPV (7.9-10.8) fL Neut # (Auto) Lymph # (Auto) Yell # (Auto) Eos # (Auto) Baso # (Auto) Absolute Nucleated RBC Total Counted Band Neuts % (Manual) (0 - 10) % Abnorm Lymph % (Manual) % Nucleated RBC % Neutrophils # (Manual) (1.5-6.6) 10^3/uL Lymphocytes # (Manual) (1.5-3.5) 10^3/uL Monocytes # (Manual) (0.0-1.0) 10^3/uL Eosinophils # (Manual) (0-0.7) 10^3/uL Basophils # (Manual) (0-0.1) 10^3/uL Differential Comment Platelet Estimate (NORMAL) RBC Morph Micro Appear (NORMAL) VBG pH 7.386 (7.31-7.41) Ionized Calcium 1.11 L (1.15-1.33) mmol/L Sodium (135-145) mmol/L Potassium (3.5-4.5) mmol/L Chloride (101-111) mmol/L Carbon Dioxide (21-32) mmol/L Anion Gap (6-13) BUN (6-20) mg/dL Creatinine (0.6-1.3) mg/dL Estimated GFR (MDRD) (>89) Glucose (74-104) mg/dL POC Whole Bld Glucose 313 H (70 - 100) mg/dL Calcium (8.5-10.3) mg/dL Phosphorus 2.8 (2.5-5.0) mg/dL Magnesium 1.2 L (1.7-2.3) mg/dL Nasal Screen MRSA (PCR) (NEGATIVE) 02/16/24 02/16/24 02/16/24 Range/Units 19:40 16:57 14:13 WBC (4.8-10.8) x10^3/uL RBC (4.20-5.40) 10^6/uL Hgb (12.0-16.0) g/dL Hct (37.0-47.0) % MCV (81.0-99.0) fL MCH (27.0-31.0) pg MCHC (32.0-36.0) g/dL RDW (12.0-15.0) % Plt Count (130-450) 10^3/uL MPV (7.9-10.8) fL Neut # (Auto) Lymph # (Auto) Yell # (Auto) Eos # (Auto) Baso # (Auto) Absolute Nucleated RBC Total Counted Band Neuts % (Manual) (0 - 10) % Abnorm Lymph % (Manual) % Nucleated RBC % Neutrophils # (Manual) (1.5-6.6) 10^3/uL Lymphocytes # (Manual) (1.5-3.5) 10^3/uL Monocytes # (Manual) (0.0-1.0) 10^3/uL Eosinophils # (Manual) (0-0.7) 10^3/uL Basophils # (Manual) (0-0.1) 10^3/uL Differential Comment Platelet Estimate (NORMAL) RBC Morph Micro Appear (NORMAL) VBG pH (7.31-7.41) Ionized Calcium (1.15-1.33) mmol/L Sodium (135-145) mmol/L Potassium 3.7 (3.5-4.5) mmol/L Chloride (101-111) mmol/L Carbon Dioxide (21-32) mmol/L Anion Gap (6-13) BUN (6-20) mg/dL Creatinine (0.6-1.3) mg/dL Estimated GFR (MDRD) (>89) Glucose (74-104) mg/dL POC Whole Bld Glucose 276 H (70 - 100) mg/dL Calcium (8.5-10.3) mg/dL Phosphorus (2.5-5.0) mg/dL Magnesium (1.7-2.3) mg/dL Nasal Screen MRSA (PCR) NEGATIVE (NEGATIVE) 02/16/24 Range/Units 13:21 WBC (4.8-10.8) x10^3/uL RBC (4.20-5.40) 10^6/uL Hgb (12.0-16.0) g/dL Hct (37.0-47.0) % MCV (81.0-99.0) fL MCH (27.0-31.0) pg MCHC (32.0-36.0) g/dL RDW (12.0-15.0) % Plt Count (130-450) 10^3/uL MPV (7.9-10.8) fL Neut # (Auto) Lymph # (Auto) Yell # (Auto) Eos # (Auto) Baso # (Auto) Absolute Nucleated RBC Total Counted Band Neuts % (Manual) (0 - 10) % Abnorm Lymph % (Manual) % Nucleated RBC % Neutrophils # (Manual) (1.5-6.6) 10^3/uL Lymphocytes # (Manual) (1.5-3.5) 10^3/uL Monocytes # (Manual) (0.0-1.0) 10^3/uL Eosinophils # (Manual) (0-0.7) 10^3/uL Basophils # (Manual) (0-0.1) 10^3/uL Differential Comment Platelet Estimate (NORMAL) RBC Morph Micro Appear (NORMAL) VBG pH (7.31-7.41) Ionized Calcium (1.15-1.33) mmol/L Sodium (135-145) mmol/L Potassium (3.5-4.5) mmol/L Chloride (101-111) mmol/L Carbon Dioxide (21-32) mmol/L Anion Gap (6-13) BUN (6-20) mg/dL Creatinine (0.6-1.3) mg/dL Estimated GFR (MDRD) (>89) Glucose (74-104) mg/dL POC Whole Bld Glucose 207 H (70 - 100) mg/dL Calcium (8.5-10.3) mg/dL Phosphorus (2.5-5.0) mg/dL Magnesium (1.7-2.3) mg/dL Nasal Screen MRSA (PCR) (NEGATIVE) - Current Medications Current Medications: Current Medications Generic Name Dose Route Start Last Admin Trade Name Freq PRN Reason Stop Dose Admin Atorvastatin Calcium 40 mg 02/16/24 21:00 02/16/24 20:26 Atorvastatin 40 Mg Tablet PO 40 mg QPM CIRA Administration Enoxaparin Sodium 40 mg 02/17/24 09:00 02/17/24 08:01 Enoxaparin 40 Mg/0.4 Ml Syringe SUBQ 40 mg DAILY CIRA Administration Sodium Chloride 1,000 mls @ 100 mls/hr 02/16/24 12:00 02/17/24 08:02 Normal Saline 0.9% IV 100 mls/hr .Q10H CIRA Administration Ceftriaxone Sodium 2 gm/ 100 mls @ 200 mls/hr 02/17/24 09:00 02/17/24 09:12 Sodium Chloride IV Infused DAILY CIRA Infusion Insulin Human Lispro 1 - 9 unit 02/17/24 08:00 02/17/24 11:57 Insulin Lispro 300 Unit/3 Ml Pen SUBQ 7 unit 0800,1200,1700,2100 CIRA Administration Protocol Metoprolol Succinate 50 mg 02/17/24 09:00 02/17/24 08:08 Metoprolol Succinate 50 Mg Tablet PO Not Given DAILY CIRA Pantoprazole Sodium 40 mg 02/17/24 09:00 02/17/24 08:01 Pantoprazole 40 Mg Tablet PO 40 mg DAILY CIRA Administration Sodium Chloride 10 ml 02/16/24 17:00 02/17/24 08:02 Sodium Chloride Flush 0.9% 10 Ml Syringe IVP 10 ml 0100,0900,1700 CIRA Administration - Physical Exam General Appearance: positive: Other (much improved, sitting up, conversive) Abdomen: positive: Other (cat with darius slightly cloudy urine) Comments/Other: UCX and Blood CX with EColi infection, on zosyn. Vitals stable though soft BP. Afebrile. Looks much better today ABX Reporting Has patient been on IV antibiotics over the past 48 hours?: Yes Impression/Plan - Problem List Problem List: 73-year-old female with diabetes and left proximal ureteral stones in the settin g of pyelonephritis and advanced upper tract urinary infection now status post left ureteral stent placement February 15. She is improving and doing quite well. She has shown to have E. coli bacteremia and urinary tract infection. Her catheter can be removed today. I placed that order now. She should remain on 2 weeks that is to say 14 days of treatment dose antibiotics once sensitivities are identified. After that she should go on a suppressive antibiotics such as Keflex 500 mg daily or nitrofurantoin 100 mg daily until we deal with her kidney stones. She will need definitive left ureteroscopy and laser lithotripsy as an outpatient. My office will arrange follow-up Call with urological questions.
[2024-02-17] MEDS: INSULIN GLARGINE-YFGN 300 UNIT/3 ML PEN SUBQ SCH (21:20)
[2024-02-18 05:31] LABS: BASOPHILS % (AUTO) 0.4 %; EOSINOPHILS % (AUTO) 0.8 %; HCT - HEMATOCRIT 30.1 % (37.0-47.0); HGB - HEMOGLOBIN 9.3 g/dL (12.0-16.0); LYMPHOCYTES % (AUTO) 6.3 %; MEAN CORPUSCULAR HEMOGLOBIN 26.6 pg (27.0-31.0); MEAN CORPUSCULAR HGB CONC 30.9 g/dL (32.0-36.0); MEAN PLATELET VOLUME 11.3 fL (7.9-10.8); NEUTROPHILS % (AUTO) 86.7 %; PLT - PLATELET COUNT 179 10^3/uL (130-450); WHITE BLOOD COUNT 24.5 x10^3/uL (4.8-10.8)
[2024-02-18 05:40] LABS: ABNORMAL LYMPHS % (MANUAL) 0 %; BAND NEUTROPHILS % (MANUAL) 0 %
[2024-02-18 05:47] LABS: CALCIUM 8.3 mg/dL (8.5-10.3); CREATININE 0.9 mg/dL (0.6-1.3); POTASSIUM 3.7 mmol/L (3.5-4.5)
[2024-02-18 06:36] LABS: DIFFERENTIAL COMMENT MANUAL DIFFERENTIAL; EOSINOPHILS # (MANUAL) 0.2 10^3/uL (0-0.7); LYMPHOCYTES # (MANUAL) 2.2 10^3/uL (1.5-3.5); LYMPHOCYTES % (MANUAL) 9 %; MONOCYTES # (MANUAL) 0.5 10^3/uL (0.0-1.0); NEUTROPHILS # (MANUAL) 21.6 10^3/uL (1.5-6.6); PLATELET ESTIMATE, MANUAL NORMAL (130-450,000) (NORMAL); PLATELET MORPHOLOGY NORMAL APPEARANCE (NORMAL)
[2024-02-18] MEDS: DULoxetine 30 MG CAPSULE PO SCH (08:10)
[2024-02-18] MEDS: ASPIRIN EC 81 MG TABLET PO SCH (08:10)
--- NOTE | 2024-02-18 08:34 | PROVIDER PROGRESS NOTE ---
Assessment/Plan - Problem List (1) Severe sepsis Assessment/Plan: (1) Severe sepsis Conclusion/Plan: -- Severe sepsis secondary to a UTI. --Underwent cystoscopy with left-sided stent placement. Will need definitive stone management as an outpatient. --She is currently draining purulent urine. --Blood and urine cultures positive for E. coli. Repeat blood cultures ordered. -- Switched from IV Zosyn to ceftriaxone on 02/16. Will need 14 days of IV antibiotics followed by low dose chronic antibiotics per Urology. Keflex 500 mg daily or Macrobid 100 mg daily. --WBC remains elevated. She is out of the ICU. (2) Type 2 diabetes mellitus Conclusion/Plan: --Holding home metformin. Restarted on home Lantus 20 units with SSI. (3) Hypertension Conclusion/Plan: --Holding home antihypertensives in setting of severe sepsis with low blood pressures. (4) Left ureteral stone Conclusion/Plan: --Underwent cystoscopy with stent placement on 02/15. Outpatient follow up for stone management. --Left-sided hydronephrosis seen on CT scan. (5) UTI (urinary tract infection) Conclusion/Plan: --As above. - Current Meds Current Meds: Current Medications Generic Name Dose Route Start Last Admin Trade Name Freq PRN Reason Stop Dose Admin Aspirin 81 mg 02/18/24 09:00 02/18/24 08:10 Aspirin Ec 81 Mg Tablet PO 81 mg DAILY CIRA Administration Atorvastatin Calcium 40 mg 02/16/24 21:00 02/17/24 21:20 Atorvastatin 40 Mg Tablet PO 40 mg QPM CIRA Administration Duloxetine HCl 60 mg 02/18/24 09:00 02/18/24 08:10 Duloxetine 30 Mg Capsule PO 60 mg DAILY CIRA Administration Enoxaparin Sodium 40 mg 02/17/24 09:00 02/18/24 08:10 Enoxaparin 40 Mg/0.4 Ml Syringe SUBQ 40 mg DAILY CIRA Administration Ceftriaxone Sodium 2 gm/ 100 mls @ 200 mls/hr 02/17/24 09:00 02/17/24 09:12 Sodium Chloride IV Infused DAILY CIRA Infusion Insulin Glargine-yfgn 20 unit 02/17/24 21:00 02/17/24 21:20 Insulin Glargine-Yfgn 300 Unit/3 Ml Pen SUBQ 20 unit QPM CIRA Administration Insulin Human Lispro 1 - 9 unit 02/17/24 08:00 02/18/24 08:11 Insulin Lispro 300 Unit/3 Ml Pen SUBQ 3 unit 0800,1200,1700,2100 CIRA Administration Protocol Metoprolol Succinate 50 mg 02/17/24 09:00 02/18/24 08:10 Metoprolol Succinate 50 Mg Tablet PO 50 mg DAILY CIRA Administration Pantoprazole Sodium 40 mg 02/17/24 09:00 02/18/24 08:10 Pantoprazole 40 Mg Tablet PO 40 mg DAILY CIRA Administration Sodium Chloride 10 ml 02/16/24 17:00 02/18/24 08:13 Sodium Chloride Flush 0.9% 10 Ml Syringe IVP Not Given 0100,0900,1700 CIRA - Lab Result Fish Bone Diagrams: 02/18/24 05:02 02/18/24 05:02 - Additional Planning My Orders: My Active Orders 02/17/24 08:00 Insulin Lispro [Humalog Kwikpen U-100] 1 - 9 unit SUBQ 0800,1200,1700,2100 02/17/24 09:00 Enoxaparin [Lovenox] 40 mg SUBQ DAILY Metoprolol Succinate [Toprol Xl] 50 mg PO DAILY Pantoprazole [Protonix] 40 mg PO DAILY cefTRIAXone [Rocephin] 2 gm Sodium Chloride 0.9% Minibag [Normal Saline 0.9% Minibag] 100 ml IV DAILY 02/17/24 09:07 Blood Culture [CULTURE, BLOOD #2] [RM] DAILY 02/17/24 21:00 Insulin Glargine-Yfgn [Semglee] 20 unit SUBQ QPM 02/18/24 07:33 Bladder Scan [RC] ONCE 02/18/24 09:00 Aspirin EC [Ecotrin] 81 mg PO DAILY DULoxetine [Cymbalta] 60 mg PO DAILY 02/19/24 05:00 BMP - BASIC METABOLIC PANEL [CHEM] DAILYLAB CBC [CBC - COMP BLD CT W/AUTO DIFF] [HEME] DAILYLAB 02/20/24 05:00 BMP - BASIC METABOLIC PANEL [CHEM] DAILYLAB CBC [CBC - COMP BLD CT W/AUTO DIFF] [HEME] DAILYLAB 02/21/24 05:00 BMP - BASIC METABOLIC PANEL [CHEM] DAILYLAB CBC [CBC - COMP BLD CT W/AUTO DIFF] [HEME] DAILYLAB Subjective - Subjective Patient Reports: Feeling Better, Resting Comfortably, Abdominal Pain Objective Vital Signs: Vital Signs - 24 hr 02/17/24 02/17/24 02/17/24 09:00 10:00 13:00 Temperature 36.8 C Heart Rate [ 77 75 96 Monitoring electrodes] Respiratory 18 19 13 Rate Blood Pressure 90/57 L 79/66 L 110/88 H [Right Brachial artery] O2 Saturation 92 95 96 02/17/24 02/17/24 02/17/24 17:00 20:57 23:30 Temperature 36.8 C 36.8 C 36.7 C Heart Rate [ 80 69 63 Monitoring electrodes] Respiratory 19 16 16 Rate Blood Pressure 116/68 116/68 124/67 [Right Brachial artery] O2 Saturation 94 95 95 02/18/24 02/18/24 05:00 08:07 Temperature 36.7 C 37.0 C Heart Rate [ 70 71 Monitoring electrodes] Respiratory 18 18 Rate Blood Pressure 131/81 H 143/82 H [Right Brachial artery] O2 Saturation 94 94 Oxygen O2 Source Room air I&O (Last 24 Hrs): Intake and Output Totals x24h 02/16/24 02/17/24 02/18/24 23:59 23:59 23:59 Intake Total 1850 4230 1743 Output Total 932 750 800 Balance 918 3480 943 General: Alert, Oriented x3 Cardiovascular: Regular rate, Normal S1, Normal S2 Abdomen: Normal bowel sounds, Soft, No tenderness - Results Results: Laboratory Results WBC 24.5 x10^3/uL (4.8-10.8) H 02/18/24 05:02 RBC 3.50 10^6/uL (4.20-5.40) L 02/18/24 05:02 Hgb 9.3 g/dL (12.0-16.0) L 02/18/24 05:02 Hct 30.1 % (37.0-47.0) L 02/18/24 05:02 MCV 86.0 fL (81.0-99.0) 02/18/24 05:02 MCH 26.6 pg (27.0-31.0) L 02/18/24 05:02 MCHC 30.9 g/dL (32.0-36.0) L 02/18/24 05:02 RDW 15.0 % (12.0-15.0) 02/18/24 05:02 Plt Count 179 10^3/uL (130-450) 02/18/24 05:02 MPV 11.3 fL (7.9-10.8) H 02/18/24 05:02 Neut # (Auto) Not Reportable 02/18/24 05:02 Lymph # (Auto) Not Reportable 02/18/24 05:02 [place] # (Auto) Not Reportable 02/18/24 05:02 Eos # (Auto) Not Reportable 02/18/24 05:02 Baso # (Auto) Not Reportable 02/18/24 05:02 Absolute Nucleated RBC Not Reportable 02/18/24 05:02 Total Counted 100 02/18/24 05:02 Band Neuts % (Manual) 0 % (0-10) 02/18/24 05:02 Abnorm Lymph % (Manual) 0 % 02/18/24 05:02 Nucleated RBC % Not Reportable 02/18/24 05:02 Neutrophils # (Manual) 21.6 10^3/uL (1.5-6.6) H 02/18/24 05:02 Lymphocytes # (Manual) 2.2 10^3/uL (1.5-3.5) 02/18/24 05:02 Monocytes # (Manual) 0.5 10^3/uL (0.0-1.0) 02/18/24 05:02 Eosinophils # (Manual) 0.2 10^3/uL (0-0.7) 02/18/24 05:02 Basophils # (Manual) 0.0 10^3/uL (0-0.1) 02/18/24 05:02 Differential Comment MANUAL DIFFERENTIAL 02/18/24 05:02 Platelet Estimate NORMAL (130-450,000) (NORMAL) 02/18/24 05:02 Platelet Morphology NORMAL APPEARANCE (NORMAL) 02/18/24 05:02 RBC Morph Micro Appear NORMAL APPEARANCE (NORMAL) 02/17/24 04:32 VBG pH 7.365 (7.31-7.41) 02/17/24 04:32 Ionized Calcium 1.12 mmol/L (1.15-1.33) L 02/17/24 04:32 Sodium 138 mmol/L (135-145) 02/18/24 05:02 Potassium 3.7 mmol/L (3.5-4.5) 02/18/24 05:02 Chloride 109 mmol/L (101-111) 02/18/24 05:02 Carbon Dioxide 24 mmol/L (21-32) 02/18/24 05:02 Anion Gap 5.0 (6-13) L 02/18/24 05:02 BUN 28 mg/dL (6-20) H 02/18/24 05:02 Creatinine 0.9 mg/dL (0.6-1.3) 02/18/24 05:02 Estimated GFR (MDRD) 62 (>89) L 02/18/24 05:02 Glucose 238 mg/dL (74-104) H 02/18/24 05:02 POC Whole Bld Glucose 219 mg/dL (70 - 100) H 02/18/24 07:45 Lactic Acid 2.9 mmol/L (0.5-2.2) H 02/16/24 09:29 Calcium 8.3 mg/dL (8.5-10.3) L 02/18/24 05:02 Phosphorus 2.5 mg/dL (2.5-5.0) 02/17/24 04:32 Magnesium 2.4 mg/dL (1.7-2.3) H 02/17/24 04:32 Total Bilirubin 0.7 mg/dL (0.2-1.0) 02/16/24 09:29 AST 19 IU/L (10-42) 02/16/24 09:29 ALT 14 IU/L (10-60) 02/16/24 09:29 Alkaline Phosphatase 280 IU/L (42-121) H 02/16/24 09:29 Troponin I High Sens 64.3 ng/L (2.3-14.8) H* 02/16/24 09:29 Total Protein 6.6 g/dL (6.4-8.9) 02/16/24 09:29 Albumin 3.5 g/dL (3.2-5.5) 02/16/24 09:29 Globulin 3.1 g/dL (2.1-4.2) 02/16/24 09:29 Albumin/Globulin Ratio 1.1 (1.0-2.2) 02/16/24 09:29 Lipase 42 U/L (11-82) 02/16/24 09:29 Urine Color YELLOW 02/16/24 09:53 Urine Clarity SL. CLOUDY (CLEAR) 02/16/24 09:53 Urine pH 6.0 PH (5.0-7.5) 02/16/24 09:53 Ur Specific [place] 1.020 (1.002-1.030) 02/16/24 09:53 Urine Protein 100 mg/dL (NEGATIVE) H 02/16/24 09:53 Urine Glucose (UA) NEGATIVE mg/dL (NEGATIVE) 02/16/24 09:53 Urine Ketones 15 mg/dL (NEGATIVE) H 02/16/24 09:53 Urine Occult Blood MODERATE (NEGATIVE) H 02/16/24 09:53 Urine Nitrite POSITIVE (NEGATIVE) H 02/16/24 09:53 Urine Bilirubin NEGATIVE (NEGATIVE) 02/16/24 09:53 Urine Urobilinogen 0.2 (NORMAL) E.U./dL (NORMAL) 02/16/24 09:53 Ur Leukocyte Esterase TRACE (NEGATIVE) H 02/16/24 09:53 Urine RBC 0-5 /HPF (0-5) 02/16/24 09:53 Urine WBC 11-25 /HPF (0-5) H 02/16/24 09:53 Ur Squamous Epith Cells RARE Squamous (<= Few) 02/16/24 09:53 Urine Bacteria Moderate /HPF (None Seen) H 02/16/24 09:53 Ur Microscopic Review INDICATED 02/16/24 09:53 Urine Culture Comments INDICATED 02/16/24 09:53 Nasal Adenovirus (PCR) NOT DETECTED 02/16/24 09:53 Nasal B. parapertussis DNA (PCR) NOT DETECTED 02/16/24 09:53 Nasal Coronavir 229E PCR NOT DETECTED 02/16/24 09:53 Nasal Coronavir HKU1 PCR NOT DETECTED 02/16/24 09:53 Nasal Coronavir NL63 PCR NOT DETECTED 02/16/24 09:53 Nasal Coronavir OC43 PCR NOT DETECTED 02/16/24 09:53 Nasal Enterovir/Rhinovir PCR NOT DETECTED 02/16/24 09:53 Nasal Influenza B PCR NOT DETECTED 02/16/24 09:53 Nasal Influenza A PCR NOT DETECTED 02/16/24 09:53 Nasal Parainfluen 1 PCR NOT DETECTED 02/16/24 09:53 Nasal Parainfluen 2 PCR NOT DETECTED 02/16/24 09:53 Nasal Parainfluen 3 PCR NOT DETECTED 02/16/24 09:53 Nasal Parainfluen 4 PCR NOT DETECTED 02/16/24 09:53 Nasal RSV (PCR) NOT DETECTED 02/16/24 09:53 Nasal Screen MRSA (PCR) NEGATIVE (NEGATIVE) 02/16/24 14:13 Nasal B.pertussis DNA PCR NOT DETECTED 02/16/24 09:53 Nasal C.pneumoniae (PCR) NOT DETECTED 02/16/24 09:53 [place] Human Metapneumo PCR NOT DETECTED 02/16/24 09:53 Nasal M.pneumoniae (PCR) NOT DETECTED 02/16/24 09:53 Nasal SARS-CoV-2 (PCR) NOT DETECTED 02/16/24 09:53 Ethyl Alcohol < 10.0 mg/dL 02/16/24 09:29
[2024-02-18] MEDS: INSULIN GLARGINE-YFGN 300 UNIT/3 ML PEN SUBQ SCH (20:47)
[2024-02-19 05:20] LABS: BASOPHILS # (AUTO) 0.1 10^3/uL (0.0-0.1); BASOPHILS % (AUTO) 0.4 %; EOSINOPHILS # (AUTO) 0.5 10^3/uL (0.0-0.7); EOSINOPHILS % (AUTO) 2.8 %; HCT - HEMATOCRIT 28.6 % (37.0-47.0); HGB - HEMOGLOBIN 9.2 g/dL (12.0-16.0); LYMPHOCYTES # (AUTO) 1.9 10^3/uL (1.5-3.5); LYMPHOCYTES % (AUTO) 11.4 %; MEAN CORPUSCULAR HEMOGLOBIN 27.1 pg (27.0-31.0); MEAN CORPUSCULAR HGB CONC 32.2 g/dL (32.0-36.0); MEAN CORPUSCULAR VOLUME 84.1 fL (81.0-99.0); MEAN PLATELET VOLUME 10.7 fL (7.9-10.8); MONOCYTES % (AUTO) 5.9 %; NEUTROPHILS # (AUTO) 12.8 10^3/uL (1.5-6.6); NEUTROPHILS % (AUTO) 78.2 %; PLT - PLATELET COUNT 199 10^3/uL (130-450); WHITE BLOOD COUNT 16.4 x10^3/uL (4.8-10.8)
[2024-02-19 05:30] LABS: CALCIUM 8.8 mg/dL (8.5-10.3); CREATININE 0.8 mg/dL (0.6-1.3); POTASSIUM 3.5 mmol/L (3.5-4.5)
--- NOTE | 2024-02-19 07:53 | PROVIDER PROGRESS NOTE ---
Assessment/Plan - Problem List (1) Severe sepsis Assessment/Plan: (1) Severe sepsis Conclusion/Plan: -- Severe sepsis secondary to a UTI. --Underwent cystoscopy with left-sided stent placement. Will need definitive stone management as an outpatient. --She is currently draining purulent urine. --Blood and urine cultures positive for E. coli. Repeat blood cultures NGTD. -- Switched from IV Zosyn to ceftriaxone on 02/16. Will need 14 days of IV antibiotics followed by low dose chronic antibiotics per Urology. Keflex 500 mg daily or Macrobid 100 mg daily. --WBC remains elevated. --Anticipate she will need 24-48 more hours of IV antibiotics until her WBC has normalized. (2) Type 2 diabetes mellitus Conclusion/Plan: --Holding home metformin. Restarted on home Lantus 25 units with SSI. (3) Hypertension Conclusion/Plan: --Holding home antihypertensives in setting of severe sepsis with low blood pressures. (4) Left ureteral stone Conclusion/Plan: --Underwent cystoscopy with stent placement on 02/15. Outpatient follow up for stone management. --Left-sided hydronephrosis seen on CT scan. (5) UTI (urinary tract infection) Conclusion/Plan: --As above. Dispo: Inpatient. Anticipate need for 24-48 more hours of inpatient treatment. - Current Meds Current Meds: Current Medications Generic Name Dose Route Start Last Admin Trade Name Freq PRN Reason Stop Dose Admin Aspirin 81 mg 02/18/24 09:00 02/18/24 08:10 Aspirin Ec 81 Mg Tablet PO 81 mg DAILY CIRA Administration Atorvastatin Calcium 40 mg 02/16/24 21:00 02/18/24 20:48 Atorvastatin 40 Mg Tablet PO 40 mg QPM CIRA Administration Duloxetine HCl 60 mg 02/18/24 09:00 02/18/24 08:10 Duloxetine 30 Mg Capsule PO 60 mg DAILY CIRA Administration Enoxaparin Sodium 40 mg 02/17/24 09:00 02/18/24 08:10 Enoxaparin 40 Mg/0.4 Ml Syringe SUBQ 40 mg DAILY CIRA Administration Ceftriaxone Sodium 2 gm/ 100 mls @ 200 mls/hr 02/17/24 09:00 02/18/24 10:25 Sodium Chloride IV Infused DAILY CIRA Infusion Insulin Glargine-yfgn 25 unit 02/18/24 21:00 02/18/24 20:47 Insulin Glargine-Yfgn 300 Unit/3 Ml Pen SUBQ 25 unit QPM ICRA Administration Insulin Human Lispro 1 - 9 unit 02/17/24 08:00 02/18/24 20:47 Insulin Lispro 300 Unit/3 Ml Pen SUBQ 7 unit 0800,1200,1700,2100 CIRA Administration Protocol Metoprolol Succinate 50 mg 02/17/24 09:00 02/18/24 08:10 Metoprolol Succinate 50 Mg Tablet PO 50 mg DAILY CIRA Administration Pantoprazole Sodium 40 mg 02/17/24 09:00 02/18/24 08:10 Pantoprazole 40 Mg Tablet PO 40 mg DAILY CIRA Administration Sodium Chloride 10 ml 02/16/24 17:00 02/18/24 23:53 Sodium Chloride Flush 0.9% 10 Ml Syringe IVP 10 ml 0100,0900,1700 CIRA Administration - Lab Result Fish Bone Diagrams: 02/19/24 05:03 02/19/24 05:03 - Additional Planning My Orders: My Active Orders 02/18/24 07:33 Bladder Scan [RC] ONCE 02/18/24 09:00 Aspirin EC [Ecotrin] 81 mg PO DAILY DULoxetine [Cymbalta] 60 mg PO DAILY 02/18/24 21:00 Insulin Glargine-Yfgn [Semglee] 25 unit SUBQ QPM 02/19/24 05:03 HEMOGLOBIN A1c% [CHEM] DAILYLAB 02/20/24 05:00 BMP - BASIC METABOLIC PANEL [CHEM] DAILYLAB CBC [CBC - COMP BLD CT W/AUTO DIFF] [HEME] DAILYLAB 02/21/24 05:00 BMP - BASIC METABOLIC PANEL [CHEM] DAILYLAB CBC [CBC - COMP BLD CT W/AUTO DIFF] [HEME] DAILYLAB Subjective - Subjective Patient Reports: Feeling Better, Resting Comfortably, No Complaints Objective Vital Signs: Vital Signs - 24 hr 02/18/24 02/18/24 02/18/24 08:07 12:37 15:30 Temperature 37.0 C 36.9 C 36.7 C Heart Rate [ 71 78 66 Brachial] Respiratory 18 18 17 Rate Blood Pressure 143/82 H 129/81 H 138/79 H [Right Brachial artery] O2 Saturation 94 95 95 03/23/24 03/24/24 03/24/24 23:43 05:35 07:33 Temperature 36.6 C 36.6 C 36.5 C Heart Rate [ 64 69 63 Brachial] Respiratory 18 20 18 Rate Blood Pressure 128/73 143/80 H 159/90 H [Right Brachial artery] O2 Saturation 95 95 94 Oxygen O2 Source Room air I&O (Last 24 Hrs): Intake and Output Totals x24h 02/17/24 02/18/24 02/19/24 23:59 23:59 23:59 Intake Total 4230 3540 120 Output Total 750 2450 800 Balance 3480 1090 -680 General: Alert, Oriented x3, Cooperative, No acute distress Neuro: Alert, CN 2-12 Grossly Intact, Oriented Times 3 Cardiovascular: Regular rate, Normal S1, Normal S2, No murmurs Respiratory: Chest non-tender, No respiratory distress, Breath sounds nml Abdomen: Normal bowel sounds, Soft, No tenderness, No hepatospenomegaly, No masses - Results Results: Laboratory Results WBC 16.4 x10^3/uL (4.8-10.8) H 02/19/24 05:03 RBC 3.40 10^6/uL (4.20-5.40) L 02/19/24 05:03 Hgb 9.2 g/dL (12.0-16.0) L 02/19/24 05:03 Hct 28.6 % (37.0-47.0) L 02/19/24 05:03 MCV 84.1 fL (81.0-99.0) 02/19/24 05:03 MCH 27.1 pg (27.0-31.0) 02/19/24 05:03 MCHC 32.2 g/dL (32.0-36.0) 02/19/24 05:03 RDW 15.0 % (12.0-15.0) 02/19/24 05:03 Plt Count 199 10^3/uL (130-450) 02/19/24 05:03 MPV 10.7 fL (7.9-10.8) 02/19/24 05:03 Neut # (Auto) 12.8 10^3/uL (1.5-6.6) H 02/19/24 05:03 Lymph # (Auto) 1.9 10^3/uL (1.5-3.5) 02/19/24 05:03 [place] # (Auto) 1.0 10^3/uL (0.0-1.0) 02/19/24 05:03 Eos # (Auto) 0.5 10^3/uL (0.0-0.7) 02/19/24 05:03 Baso # (Auto) 0.1 10^3/uL (0.0-0.1) 02/19/24 05:03 Absolute Nucleated RBC 0.00 x10^3/uL 02/19/24 05:03 Total Counted 100 02/18/24 05:02 Band Neuts % (Manual) 0 % (0-10) 02/18/24 05:02 Abnorm Lymph % (Manual) 0 % 02/18/24 05:02 Nucleated RBC % 0.0 /100WBC 02/19/24 05:03 Neutrophils # (Manual) 21.6 10^3/uL (1.5-6.6) H 02/18/24 05:02 Lymphocytes # (Manual) 2.2 10^3/uL (1.5-3.5) 02/18/24 05:02 Monocytes # (Manual) 0.5 10^3/uL (0.0-1.0) 02/18/24 05:02 Eosinophils # (Manual) 0.2 10^3/uL (0-0.7) 02/18/24 05:02 Basophils # (Manual) 0.0 10^3/uL (0-0.1) 02/18/24 05:02 Differential Comment MANUAL DIFFERENTIAL 02/18/24 05:02 Platelet Estimate NORMAL (130-450,000) (NORMAL) 02/18/24 05:02 Platelet Morphology NORMAL APPEARANCE (NORMAL) 02/18/24 05:02 RBC Morph Micro Appear NORMAL APPEARANCE (NORMAL) 02/17/24 04:32 VBG pH 7.365 (7.31-7.41) 02/17/24 04:32 Ionized Calcium 1.12 mmol/L (1.15-1.33) L 02/17/24 04:32 Sodium 141 mmol/L (135-145) 02/19/24 05:03 Potassium 3.5 mmol/L (3.5-4.5) 02/19/24 05:03 Chloride 109 mmol/L (101-111) 02/19/24 05:03 Carbon Dioxide 27 mmol/L (21-32) 02/19/24 05:03 Anion Gap 5.0 (6-13) L 02/19/24 05:03 BUN 19 mg/dL (6-20) 02/19/24 05:03 Creatinine 0.8 mg/dL (0.6-1.3) 02/19/24 05:03 Estimated GFR (MDRD) 71 (>89) L 02/19/24 05:03 Glucose 141 mg/dL (74-104) H 02/19/24 05:03 POC Whole Bld Glucose 139 mg/dL (70 - 100) H 02/19/24 07:26 Lactic Acid 2.9 mmol/L (0.5-2.2) H 02/16/24 09:29 Calcium 8.8 mg/dL (8.5-10.3) 02/19/24 05:03 Phosphorus 2.5 mg/dL (2.5-5.0) 02/17/24 04:32 Magnesium 2.4 mg/dL (1.7-2.3) H 02/17/24 04:32 Total Bilirubin 0.7 mg/dL (0.2-1.0) 02/16/24 09:29 AST 19 IU/L (10-42) 02/16/24 09:29 ALT 14 IU/L (10-60) 02/16/24 09:29 Alkaline Phosphatase 280 IU/L (42-121) H 02/16/24 09:29 Troponin I High Sens 64.3 ng/L (2.3-14.8) H* 02/16/24 09:29 Total Protein 6.6 g/dL (6.4-8.9) 02/16/24 09:29 Albumin 3.5 g/dL (3.2-5.5) 02/16/24 09:29 Globulin 3.1 g/dL (2.1-4.2) 02/16/24 09:29 Albumin/Globulin Ratio 1.1 (1.0-2.2) 02/16/24 09:29 Lipase 42 U/L (11-82) 02/16/24 09:29 Urine Color YELLOW 02/16/24 09:53 Urine Clarity SL. CLOUDY (CLEAR) 02/16/24 09:53 Urine pH 6.0 PH (5.0-7.5) 02/16/24 09:53 Ur Specific [place] 1.020 (1.002-1.030) 02/16/24 09:53 Urine Protein 100 mg/dL (NEGATIVE) H 02/16/24 09:53 Urine Glucose (UA) NEGATIVE mg/dL (NEGATIVE) 02/16/24 09:53 Urine Ketones 15 mg/dL (NEGATIVE) H 02/16/24 09:53 Urine Occult Blood MODERATE (NEGATIVE) H 02/16/24 09:53 Urine Nitrite POSITIVE (NEGATIVE) H 02/16/24 09:53 Urine Bilirubin NEGATIVE (NEGATIVE) 02/16/24 09:53 Urine Urobilinogen 0.2 (NORMAL) E.U./dL (NORMAL) 02/16/24 09:53 Ur Leukocyte Esterase TRACE (NEGATIVE) H 02/16/24 09:53 Urine RBC 0-5 /HPF (0-5) 02/16/24 09:53 Urine WBC 11-25 /HPF (0-5) H 02/16/24 09:53 Ur Squamous Epith Cells RARE Squamous (<= Few) 02/16/24 09:53 Urine Bacteria Moderate /HPF (None Seen) H 02/16/24 09:53 Ur Microscopic Review INDICATED 02/16/24 09:53 Urine Culture Comments INDICATED 02/16/24 09:53 Nasal Adenovirus (PCR) NOT DETECTED 02/16/24 09:53 Nasal B. parapertussis DNA (PCR) NOT DETECTED 02/16/24 09:53 Nasal Coronavir 229E PCR NOT DETECTED 02/16/24 09:53 Nasal Coronavir HKU1 PCR NOT DETECTED 02/16/24 09:53 Nasal Coronavir NL63 PCR NOT DETECTED 02/16/24 09:53 Nasal Coronavir OC43 PCR NOT DETECTED 02/16/24 09:53 Nasal Enterovir/Rhinovir PCR NOT DETECTED 02/16/24 09:53 Nasal Influenza B PCR NOT DETECTED 02/16/24 09:53 Nasal Influenza A PCR NOT DETECTED 02/16/24 09:53 Nasal Parainfluen 1 PCR NOT DETECTED 02/16/24 09:53 Nasal Parainfluen 2 PCR NOT DETECTED 02/16/24 09:53 Nasal Parainfluen 3 PCR NOT DETECTED 02/16/24 09:53 Nasal Parainfluen 4 PCR NOT DETECTED 02/16/24 09:53 Nasal RSV (PCR) NOT DETECTED 02/16/24 09:53 Nasal Screen MRSA (PCR) NEGATIVE (NEGATIVE) 02/16/24 14:13 Nasal B.pertussis DNA PCR NOT DETECTED 02/16/24 09:53 Nasal C.pneumoniae (PCR) NOT DETECTED 02/16/24 09:53 [place] Human Metapneumo PCR NOT DETECTED 02/16/24 09:53 Nasal M.pneumoniae (PCR) NOT DETECTED 02/16/24 09:53 Nasal SARS-CoV-2 (PCR) NOT DETECTED 02/16/24 09:53 Ethyl Alcohol < 10.0 mg/dL 02/16/24 09:29
[2024-02-19] MEDS: INSULIN GLARGINE-YFGN 300 UNIT/3 ML PEN SUBQ SCH (21:33)
[2024-02-20] MEDS: ACETAMINOPHEN 325 MG TABLET PO PRN
[2024-02-20 05:10] LABS: BASOPHILS # (AUTO) 0.1 10^3/uL (0.0-0.1); BASOPHILS % (AUTO) 0.5 %; EOSINOPHILS # (AUTO) 0.4 10^3/uL (0.0-0.7); EOSINOPHILS % (AUTO) 3.2 %; HGB - HEMOGLOBIN 9.8 g/dL (12.0-16.0); LYMPHOCYTES # (AUTO) 1.8 10^3/uL (1.5-3.5); LYMPHOCYTES % (AUTO) 16.2 %; MEAN CORPUSCULAR HEMOGLOBIN 26.6 pg (27.0-31.0); MEAN CORPUSCULAR HGB CONC 31.6 g/dL (32.0-36.0); MEAN CORPUSCULAR VOLUME 84.2 fL (81.0-99.0); MEAN PLATELET VOLUME 10.6 fL (7.9-10.8); MONOCYTES % (AUTO) 8.9 %; NEUTROPHILS # (AUTO) 7.7 10^3/uL (1.5-6.6); NEUTROPHILS % (AUTO) 68.3 %; PLT - PLATELET COUNT 239 10^3/uL (130-450); RED BLOOD COUNT 3.68 10^6/uL (4.20-5.40); RED CELL DISTRIBUTION WIDTH 14.6 % (12.0-15.0); WHITE BLOOD COUNT 11.3 x10^3/uL (4.8-10.8)
[2024-02-20 05:42] LABS: CREATININE 0.8 mg/dL (0.6-1.3)
[2024-02-20 06:24] LABS: CALCIUM 9.3 mg/dL (8.5-10.3); POTASSIUM 3.1 mmol/L (3.5-4.5)
[2024-02-20] MEDS: POTASSIUM CHLORIDE 20 MEQ TABLET PO SCH (08:38)
--- NOTE | 2024-02-20 08:38 | PROVIDER PROGRESS NOTE ---
Assessment/Plan - Problem List (1) Severe sepsis Assessment/Plan: (1) Severe sepsis Conclusion/Plan: -- Severe sepsis secondary to a UTI. --Underwent cystoscopy with left-sided stent placement. Will need definitive stone management as an outpatient. --Blood and urine cultures positive for E. coli. Repeat blood cultures NGTD. -- Switched from IV Zosyn to ceftriaxone on 02/16. Will need 14 days of IV antibiotics followed by low dose chronic antibiotics per Urology. Keflex 500 mg daily or Macrobid 100 mg daily. --WBC downtrending. --Feels fatigued today. Anticipate discharge as early as tomorrow. (2) Type 2 diabetes mellitus Conclusion/Plan: --Holding home metformin. Increased Lantus from home 20 to 27 with SSI. A1c is 9 per patient. (3) Hypertension Conclusion/Plan: --Holding home antihypertensives in setting of severe sepsis with low blood pressures. (4) Left ureteral stone Conclusion/Plan: --Underwent cystoscopy with stent placement on 02/15. Outpatient follow up for stone management. --Left-sided hydronephrosis seen on CT scan. (5) UTI (urinary tract infection) Conclusion/Plan: --As above. Dispo: Inpatient. Anticipate need for 24-48 more hours of inpatient treatment. Discharge on oral antibiotics for 14 total days of treatment. Following this will need daily Keflex 500 mg or Macrobid 100 mg daily for prophylactic therapy. Outpatient follow up with Urology for definitive stone treatment. - Current Meds Current Meds: Current Medications Generic Name Dose Route Start Last Admin Trade Name Freq PRN Reason Stop Dose Admin Acetaminophen 650 mg 02/16/24 11:33 02/20/24 08:01 Acetaminophen 325 Mg Tablet PO 650 mg Q4HR PRN Administration Pain 1 to 4, or Fever Aspirin 81 mg 02/18/24 09:00 02/19/24 08:04 Aspirin Ec 81 Mg Tablet PO 81 mg DAILY CIRA Administration Atorvastatin Calcium 40 mg 02/16/24 21:00 02/19/24 21:32 Atorvastatin 40 Mg Tablet PO 40 mg QPM CIRA Administration Duloxetine HCl 60 mg 02/18/24 09:00 02/19/24 08:04 Duloxetine 30 Mg Capsule PO 60 mg DAILY CIRA Administration Enoxaparin Sodium 40 mg 02/17/24 09:00 02/19/24 08:03 Enoxaparin 40 Mg/0.4 Ml Syringe SUBQ 40 mg DAILY CIRA Administration Ceftriaxone Sodium 2 gm/ 100 mls @ 200 mls/hr 02/17/24 09:00 02/19/24 08:40 Sodium Chloride IV Infused DAILY CIRA Infusion Insulin Glargine-yfgn 27 unit 02/19/24 21:00 02/19/24 21:33 Insulin Glargine-Yfgn 300 Unit/3 Ml Pen SUBQ 27 unit QPM CIRA Administration Insulin Human Lispro 1 - 9 unit 02/17/24 08:00 02/20/24 07:46 Insulin Lispro 300 Unit/3 Ml Pen SUBQ Not Given 0800,1200,1700,2100 [facility] Protocol Metoprolol Succinate 50 mg 02/17/24 09:00 02/19/24 08:03 Metoprolol Succinate 50 Mg Tablet PO 50 mg DAILY CIAR Administration Pantoprazole Sodium 40 mg 02/17/24 09:00 02/19/24 08:04 Pantoprazole 40 Mg Tablet PO 40 mg DAILY CIRA Administration Sodium Chloride 10 ml 02/16/24 17:00 02/20/24 00:00 Sodium Chloride Flush 0.9% 10 Ml Syringe IVP 10 ml 0100,0900,1700 CIRA Administration - Lab Result Fish Bone Diagrams: 02/20/24 04:42 02/20/24 04:42 - Additional Planning My Orders: My Active Orders 02/19/24 21:00 Insulin Glargine-Yfgn [Semglee] 27 unit SUBQ QPM 02/20/24 09:00 Potassium Chloride [K-Dur] 40 meq PO BID 02/21/24 05:00 BMP - BASIC METABOLIC PANEL [CHEM] DAILYLAB CBC [CBC - COMP BLD CT W/AUTO DIFF] [HEME] DAILYLAB Subjective - Subjective Patient Reports: Feeling Better, Resting Comfortably, Fatigue Objective Vital Signs: Vital Signs - 24 hr 02/19/24 02/19/24 02/20/24 15:41 23:14 07:30 Temperature 36.9 C 36.8 C 36.5 C Heart Rate [ 67 64 77 Brachial] Respiratory 16 16 16 Rate Blood Pressure 154/84 H 162/90 H 148/85 H [Right Brachial artery] O2 Saturation 95 95 94 Oxygen O2 Source Room air I&O (Last 24 Hrs): Intake and Output Totals x24h 02/18/24 02/19/24 02/20/24 23:59 23:59 23:59 Intake Total 3540 1480 Output Total 2450 1500 700 Balance 1090 -20 -700 General: Alert, Oriented x3, Cooperative, No acute distress Cardiovascular: Regular rate, Normal S1, Normal S2, No murmurs Respiratory: Chest non-tender, No respiratory distress, Breath sounds nml Abdomen: Normal bowel sounds, Soft, No tenderness, No hepatospenomegaly, No masses - Results Results: Laboratory Results WBC 11.3 x10^3/uL (4.8-10.8) H 02/20/24 04:42 RBC 3.68 10^6/uL (4.20-5.40) L 02/20/24 04:42 Hgb 9.8 g/dL (12.0-16.0) L 02/20/24 04:42 Hct 31.0 % (37.0-47.0) L 02/20/24 04:42 MCV 84.2 fL (81.0-99.0) 02/20/24 04:42 MCH 26.6 pg (27.0-31.0) L 02/20/24 04:42 MCHC 31.6 g/dL (32.0-36.0) L 02/20/24 04:42 RDW 14.6 % (12.0-15.0) 02/20/24 04:42 Plt Count 239 10^3/uL (130-450) 02/20/24 04:42 MPV 10.6 fL (7.9-10.8) 02/20/24 04:42 Neut # (Auto) 7.7 10^3/uL (1.5-6.6) H 02/20/24 04:42 Lymph # (Auto) 1.8 10^3/uL (1.5-3.5) 02/20/24 04:42 [place] # (Auto) 1.0 10^3/uL (0.0-1.0) 02/20/24 04:42 Eos # (Auto) 0.4 10^3/uL (0.0-0.7) 02/20/24 04:42 Baso # (Auto) 0.1 10^3/uL (0.0-0.1) 02/20/24 04:42 Absolute Nucleated RBC 0.00 x10^3/uL 02/20/24 04:42 Total Counted 100 02/18/24 05:02 Band Neuts % (Manual) 0 % (0-10) 02/18/24 05:02 Abnorm Lymph % (Manual) 0 % 02/18/24 05:02 Nucleated RBC % 0.0 /100WBC 02/20/24 04:42 Neutrophils # (Manual) 21.6 10^3/uL (1.5-6.6) H 02/18/24 05:02 Lymphocytes # (Manual) 2.2 10^3/uL (1.5-3.5) 02/18/24 05:02 Monocytes # (Manual) 0.5 10^3/uL (0.0-1.0) 02/18/24 05:02 Eosinophils # (Manual) 0.2 10^3/uL (0-0.7) 02/18/24 05:02 Basophils # (Manual) 0.0 10^3/uL (0-0.1) 02/18/24 05:02 Differential Comment MANUAL DIFFERENTIAL 02/18/24 05:02 Platelet Estimate NORMAL (130-450,000) (NORMAL) 02/18/24 05:02 Platelet Morphology NORMAL APPEARANCE (NORMAL) 02/18/24 05:02 RBC Morph Micro Appear NORMAL APPEARANCE (NORMAL) 02/17/24 04:32 VBG pH 7.365 (7.31-7.41) 02/17/24 04:32 Ionized Calcium 1.12 mmol/L (1.15-1.33) L 02/17/24 04:32 Sodium 139 mmol/L (135-145) 02/20/24 04:42 Potassium 3.1 mmol/L (3.5-4.5) L 02/20/24 04:42 Chloride 104 mmol/L (101-111) 02/20/24 04:42 Carbon Dioxide 29 mmol/L (21-32) 02/20/24 04:42 Anion Gap 6.0 (6-13) 02/20/24 04:42 BUN 12 mg/dL (6-20) 02/20/24 04:42 Creatinine 0.8 mg/dL (0.6-1.3) 02/20/24 04:42 Estimated GFR (MDRD) 71 (>89) L 02/20/24 04:42 Glucose 107 mg/dL (74-104) H 02/20/24 04:42 POC Whole Bld Glucose 100 mg/dL (70 - 100) 02/20/24 07:19 Lactic Acid 2.9 mmol/L (0.5-2.2) H 02/16/24 09:29 Calcium 9.3 mg/dL (8.5-10.3) 02/20/24 04:42 Phosphorus 2.5 mg/dL (2.5-5.0) 02/17/24 04:32 Magnesium 2.4 mg/dL (1.7-2.3) H 02/17/24 04:32 Total Bilirubin 0.7 mg/dL (0.2-1.0) 02/16/24 09:29 AST 19 IU/L (10-42) 02/16/24 09:29 ALT 14 IU/L (10-60) 02/16/24 09:29 Alkaline Phosphatase 280 IU/L (42-121) H 02/16/24 09:29 Troponin I High Sens 64.3 ng/L (2.3-14.8) H* 02/16/24 09:29 Total Protein 6.6 g/dL (6.4-8.9) 02/16/24 09:29 Albumin 3.5 g/dL (3.2-5.5) 02/16/24 09:29 Globulin 3.1 g/dL (2.1-4.2) 02/16/24 09:29 Albumin/Globulin Ratio 1.1 (1.0-2.2) 02/16/24 09:29 Lipase 42 U/L (11-82) 02/16/24 09:29 Urine Color YELLOW 02/16/24 09:53 Urine Clarity SL. CLOUDY (CLEAR) 02/16/24 09:53 Urine pH 6.0 PH (5.0-7.5) 02/16/24 09:53 Ur Specific [place] 1.020 (1.002-1.030) 02/16/24 09:53 Urine Protein 100 mg/dL (NEGATIVE) H 02/16/24 09:53 Urine Glucose (UA) NEGATIVE mg/dL (NEGATIVE) 02/16/24 09:53 Urine Ketones 15 mg/dL (NEGATIVE) H 02/16/24 09:53 Urine Occult Blood MODERATE (NEGATIVE) H 02/16/24 09:53 Urine Nitrite POSITIVE (NEGATIVE) H 02/16/24 09:53 Urine Bilirubin NEGATIVE (NEGATIVE) 02/16/24 09:53 Urine Urobilinogen 0.2 (NORMAL) E.U./dL (NORMAL) 02/16/24 09:53 Ur Leukocyte Esterase TRACE (NEGATIVE) H 02/16/24 09:53 Urine RBC 0-5 /HPF (0-5) 02/16/24 09:53 Urine WBC 11-25 /HPF (0-5) H 02/16/24 09:53 Ur Squamous Epith Cells RARE Squamous (<= Few) 02/16/24 09:53 Urine Bacteria Moderate /HPF (None Seen) H 02/16/24 09:53 Ur Microscopic Review INDICATED 02/16/24 09:53 Urine Culture Comments INDICATED 02/16/24 09:53 Nasal Adenovirus (PCR) NOT DETECTED 02/16/24 09:53 Nasal B. parapertussis DNA (PCR) NOT DETECTED 02/16/24 09:53 Nasal Coronavir 229E PCR NOT DETECTED 02/16/24 09:53 Nasal Coronavir HKU1 PCR NOT DETECTED 02/16/24 09:53 Nasal Coronavir NL63 PCR NOT DETECTED 02/16/24 09:53 Nasal Coronavir OC43 PCR NOT DETECTED 02/16/24 09:53 Nasal Enterovir/Rhinovir PCR NOT DETECTED 02/16/24 09:53 Nasal Influenza B PCR NOT DETECTED 02/16/24 09:53 Nasal Influenza A PCR NOT DETECTED 02/16/24 09:53 Nasal Parainfluen 1 PCR NOT DETECTED 02/16/24 09:53 Nasal Parainfluen 2 PCR NOT DETECTED 02/16/24 09:53 Nasal Parainfluen 3 PCR NOT DETECTED 02/16/24 09:53 Nasal Parainfluen 4 PCR NOT DETECTED 02/16/24 09:53 Nasal RSV (PCR) NOT DETECTED 02/16/24 09:53 Nasal Screen MRSA (PCR) NEGATIVE (NEGATIVE) 02/16/24 14:13 Nasal B.pertussis DNA PCR NOT DETECTED 02/16/24 09:53 Nasal C.pneumoniae (PCR) NOT DETECTED 02/16/24 09:53 [place] Human Metapneumo PCR NOT DETECTED 02/16/24 09:53 Nasal M.pneumoniae (PCR) NOT DETECTED 02/16/24 09:53 Nasal SARS-CoV-2 (PCR) NOT DETECTED 02/16/24 09:53 Ethyl Alcohol < 10.0 mg/dL 02/16/24 09:29
[2024-02-20] MEDS: SACCHAROMYCES BOULARDII 250 MG CAPSULE PO SCH (17:01)
[2024-02-21 05:33] LABS: BASOPHILS # (AUTO) 0.1 10^3/uL (0.0-0.1); BASOPHILS % (AUTO) 0.6 %; EOSINOPHILS # (AUTO) 0.3 10^3/uL (0.0-0.7); EOSINOPHILS % (AUTO) 2.1 %; HCT - HEMATOCRIT 32.2 % (37.0-47.0); LYMPHOCYTES # (AUTO) 1.5 10^3/uL (1.5-3.5); LYMPHOCYTES % (AUTO) 10.2 %; MEAN CORPUSCULAR HEMOGLOBIN 25.8 pg (27.0-31.0); MEAN CORPUSCULAR HGB CONC 31.1 g/dL (32.0-36.0); MEAN CORPUSCULAR VOLUME 83.2 fL (81.0-99.0); MEAN PLATELET VOLUME 10.4 fL (7.9-10.8); MONOCYTES # (AUTO) 1.2 10^3/uL (0.0-1.0); MONOCYTES % (AUTO) 8.2 %; NEUTROPHILS # (AUTO) 11.5 10^3/uL (1.5-6.6); PLT - PLATELET COUNT 312 10^3/uL (130-450); RED BLOOD COUNT 3.87 10^6/uL (4.20-5.40); RED CELL DISTRIBUTION WIDTH 14.7 % (12.0-15.0); WHITE BLOOD COUNT 15.1 x10^3/uL (4.8-10.8)
[2024-02-21 05:56] LABS: CALCIUM 9.5 mg/dL (8.5-10.3); CREATININE 0.8 mg/dL (0.6-1.3); POTASSIUM 3.7 mmol/L (3.5-4.5)
--- NOTE | 2024-02-21 08:04 | PROVIDER PROGRESS NOTE ---
Assessment/Plan - Problem List (1) Severe sepsis Assessment/Plan: Underwent cystoscopy with left-sided stent placement. Will need definitive stone management as an outpatient. Blood and urine cultures positive for E. coli. Repeat blood cultures NGTD. Today patient received 5 days of treatment with IV ceftriaxone. Patient most likely can be transition to p.o. antibiotics in the morning. After treatment for 7 more days with p.o. antibiotics, patient will need suppressive therapy with Keflex 500 mg daily or Macrobid 100 mg daily (2) Type 2 diabetes mellitus Conclusion/Plan: Continue Lantus and sliding scale insulin. (3) Hypertension Conclusion/Plan: Outpatient antihypertensives are being withheld at this time. (4) Left ureteral stone Conclusion/Plan: Underwent cystoscopy with stent placement on 02/15. Outpatient follow up for stone management. Left-sided hydronephrosis seen on CT scan. (5) UTI (urinary tract infection) Conclusion/Plan: Continue antibiotics as above. - Current Meds Current Meds: Current Medications Generic Name Dose Route Start Last Admin Trade Name Freq PRN Reason Stop Dose Admin Acetaminophen 650 mg 02/16/24 11:33 02/20/24 08:01 Acetaminophen 325 Mg Tablet PO 650 mg Q4HR PRN Administration Pain 1 to 4, or Fever Aspirin 81 mg 02/18/24 09:00 02/20/24 08:38 Aspirin Ec 81 Mg Tablet PO 81 mg DAILY CIRA Administration Atorvastatin Calcium 40 mg 02/16/24 21:00 02/20/24 20:45 Atorvastatin 40 Mg Tablet PO 40 mg QPM CIRA Administration Duloxetine HCl 60 mg 02/18/24 09:00 02/20/24 08:38 Duloxetine 30 Mg Capsule PO 60 mg DAILY CIRA Administration Enoxaparin Sodium 40 mg 02/17/24 09:00 02/20/24 08:38 Enoxaparin 40 Mg/0.4 Ml Syringe SUBQ 40 mg DAILY CIRA Administration Ceftriaxone Sodium 2 gm/ 100 mls @ 200 mls/hr 02/17/24 09:00 02/20/24 09:35 Sodium Chloride IV Infused DAILY CIRA Infusion Insulin Glargine-yfgn 27 unit 02/19/24 21:00 02/20/24 20:48 Insulin Glargine-Yfgn 300 Unit/3 Ml Pen SUBQ 27 unit QPM CIRA Administration Insulin Human Lispro 1 - 9 unit 02/17/24 08:00 02/21/24 07:46 Insulin Lispro 300 Unit/3 Ml Pen SUBQ Not Given 0800,1200,1700,2100 [facility] Protocol Metoprolol Succinate 50 mg 02/17/24 09:00 02/20/24 08:38 Metoprolol Succinate 50 Mg Tablet PO 50 mg DAILY CIRA Administration Pantoprazole Sodium 40 mg 02/17/24 09:00 02/20/24 08:38 Pantoprazole 40 Mg Tablet PO 40 mg DAILY CIRA Administration Potassium Chloride 40 meq 02/20/24 09:00 02/20/24 20:45 Potassium Chloride 20 Meq Tablet PO 02/21/24 21:01 40 meq BID CIRA Administration Saccharomyces Boulardii 500 mg 02/20/24 17:00 02/20/24 17:01 Saccharomyces Boulardii 250 Mg Capsule PO 500 mg BIDWM CIRA Administration Sodium Chloride 10 ml 02/16/24 17:00 02/21/24 01:31 Sodium Chloride Flush 0.9% 10 Ml Syringe IVP 10 ml 0100,0900,1700 [facility] Administration - Lab Result Fish Bone Diagrams: 02/21/24 05:11 02/21/24 05:11 Subjective - Subjective Patient Reports: Other (Alert. No significant changes overnight. Denies chest pain, shortness of breath, abdominal pain.) Objective Vital Signs: Vital Signs - 24 hr 02/20/24 02/21/24 02/21/24 15:25 05:26 07:38 Temperature 36.7 C 37.2 C 36.8 C Heart Rate [ 83 93 98 Brachial] Respiratory 17 20 16 Rate Blood Pressure 159/93 H 156/90 H 144/82 H [Right Brachial artery] O2 Saturation 92 92 94 Oxygen O2 Source Room air I&O (Last 24 Hrs): Intake and Output Totals x24h 02/19/24 02/20/24 02/21/24 23:59 23:59 23:59 Intake Total 1480 1680 Output Total 5531 064 0973 Balance -20 780 -1800 General: Alert, Oriented x3, No acute distress HEENT: Atraumatic Neck: No JVD Neuro: Alert, Non Focal Cardiovascular: Regular rate, Normal S1, Normal S2 Respiratory: Other (Good air exchange in all lung donato no wheezing no crackles.) Abdomen: Normal bowel sounds, Soft, No tenderness Extremities: No clubbing, No cyanosis Skin: No rashes - Results Results: Laboratory Results WBC 15.1 x10^3/uL (4.8-10.8) H 02/21/24 05:11 RBC 3.87 10^6/uL (4.20-5.40) L 02/21/24 05:11 Hgb 10.0 g/dL (12.0-16.0) L 02/21/24 05:11 Hct 32.2 % (37.0-47.0) L 02/21/24 05:11 MCV 83.2 fL (81.0-99.0) 02/21/24 05:11 MCH 25.8 pg (27.0-31.0) L 02/21/24 05:11 MCHC 31.1 g/dL (32.0-36.0) L 02/21/24 05:11 RDW 14.7 % (12.0-15.0) 02/21/24 05:11 Plt Count 312 10^3/uL (130-450) 02/21/24 05:11 MPV 10.4 fL (7.9-10.8) 02/21/24 05:11 Neut # (Auto) 11.5 10^3/uL (1.5-6.6) H 02/21/24 05:11 Lymph # (Auto) 1.5 10^3/uL (1.5-3.5) 02/21/24 05:11 Chicot # (Auto) 1.2 10^3/uL (0.0-1.0) H 02/21/24 05:11 Eos # (Auto) 0.3 10^3/uL (0.0-0.7) 02/21/24 05:11 Baso # (Auto) 0.1 10^3/uL (0.0-0.1) 02/21/24 05:11 Absolute Nucleated RBC 0.00 x10^3/uL 02/21/24 05:11 Total Counted 100 02/18/24 05:02 Band Neuts % (Manual) 0 % (0-10) 02/18/24 05:02 Abnorm Lymph % (Manual) 0 % 02/18/24 05:02 Nucleated RBC % 0.0 /100WBC 02/21/24 05:11 Neutrophils # (Manual) 21.6 10^3/uL (1.5-6.6) H 02/18/24 05:02 Lymphocytes # (Manual) 2.2 10^3/uL (1.5-3.5) 02/18/24 05:02 Monocytes # (Manual) 0.5 10^3/uL (0.0-1.0) 02/18/24 05:02 Eosinophils # (Manual) 0.2 10^3/uL (0-0.7) 02/18/24 05:02 Basophils # (Manual) 0.0 10^3/uL (0-0.1) 02/18/24 05:02 Differential Comment MANUAL DIFFERENTIAL 02/18/24 05:02 Platelet Estimate NORMAL (130-450,000) (NORMAL) 02/18/24 05:02 Platelet Morphology NORMAL APPEARANCE (NORMAL) 02/18/24 05:02 RBC Morph Micro Appear NORMAL APPEARANCE (NORMAL) 02/17/24 04:32 VBG pH 7.365 (7.31-7.41) 02/17/24 04:32 Ionized Calcium 1.12 mmol/L (1.15-1.33) L 02/17/24 04:32 Sodium 138 mmol/L (135-145) 02/21/24 05:11 Potassium 3.7 mmol/L (3.5-4.5) 02/21/24 05:11 Chloride 102 mmol/L (101-111) 02/21/24 05:11 Carbon Dioxide 30 mmol/L (21-32) 02/21/24 05:11 Anion Gap 6.0 (6-13) 02/21/24 05:11 BUN 10 mg/dL (6-20) 02/21/24 05:11 Creatinine 0.8 mg/dL (0.6-1.3) 02/21/24 05:11 Estimated GFR (MDRD) 71 (>89) L 02/21/24 05:11 Glucose 121 mg/dL (74-104) H 02/21/24 05:11 POC Whole Bld Glucose 121 mg/dL (70 - 100) H 02/21/24 07:32 Lactic Acid 2.9 mmol/L (0.5-2.2) H 02/16/24 09:29 Calcium 9.5 mg/dL (8.5-10.3) 02/21/24 05:11 Phosphorus 2.5 mg/dL (2.5-5.0) 02/17/24 04:32 Magnesium 2.4 mg/dL (1.7-2.3) H 02/17/24 04:32 Total Bilirubin 0.7 mg/dL (0.2-1.0) 02/16/24 09:29 AST 19 IU/L (10-42) 02/16/24 09:29 ALT 14 IU/L (10-60) 02/16/24 09:29 Alkaline Phosphatase 280 IU/L (42-121) H 02/16/24 09:29 Troponin I High Sens 64.3 ng/L (2.3-14.8) H* 02/16/24 09:29 Total Protein 6.6 g/dL (6.4-8.9) 02/16/24 09:29 Albumin 3.5 g/dL (3.2-5.5) 02/16/24 09:29 Globulin 3.1 g/dL (2.1-4.2) 02/16/24 09:29 Albumin/Globulin Ratio 1.1 (1.0-2.2) 02/16/24 09:29 Lipase 42 U/L (11-82) 02/16/24 09:29 Urine Color YELLOW 02/16/24 09:53 Urine Clarity SL. CLOUDY (CLEAR) 02/16/24 09:53 Urine pH 6.0 PH (5.0-7.5) 02/16/24 09:53 Ur Specific Stafford 1.020 (1.002-1.030) 02/16/24 09:53 Urine Protein 100 mg/dL (NEGATIVE) H 02/16/24 09:53 Urine Glucose (UA) NEGATIVE mg/dL (NEGATIVE) 02/16/24 09:53 Urine Ketones 15 mg/dL (NEGATIVE) H 02/16/24 09:53 Urine Occult Blood MODERATE (NEGATIVE) H 02/16/24 09:53 Urine Nitrite POSITIVE (NEGATIVE) H 02/16/24 09:53 Urine Bilirubin NEGATIVE (NEGATIVE) 02/16/24 09:53 Urine Urobilinogen 0.2 (NORMAL) E.U./dL (NORMAL) 02/16/24 09:53 Ur Leukocyte Esterase TRACE (NEGATIVE) H 03/21/24 09:53 Urine RBC 0-5 /HPF (0-5) 02/16/24 09:53 Urine WBC 11-25 /HPF (0-5) H 02/16/24 09:53 Ur Squamous Epith Cells RARE Squamous (<= Few) 02/16/24 09:53 Urine Bacteria Moderate /HPF (None Seen) H 02/16/24 09:53 Ur Microscopic Review INDICATED 02/16/24 09:53 Urine Culture Comments INDICATED 02/16/24 09:53 Nasal Adenovirus (PCR) NOT DETECTED 02/16/24 09:53 Nasal B. parapertussis DNA (PCR) NOT DETECTED 02/16/24 09:53 Nasal Coronavir 229E PCR NOT DETECTED 02/16/24 09:53 Nasal Coronavir HKU1 PCR NOT DETECTED 02/16/24 09:53 Nasal Coronavir NL63 PCR NOT DETECTED 02/16/24 09:53 Nasal Coronavir OC43 PCR NOT DETECTED 02/16/24 09:53 Nasal Enterovir/Rhinovir PCR NOT DETECTED 02/16/24 09:53 Nasal Influenza B PCR NOT DETECTED 02/16/24 09:53 Nasal Influenza A PCR NOT DETECTED 02/16/24 09:53 Nasal Parainfluen 1 PCR NOT DETECTED 02/16/24 09:53 Nasal Parainfluen 2 PCR NOT DETECTED 02/16/24 09:53 Nasal Parainfluen 3 PCR NOT DETECTED 02/16/24 09:53 Nasal Parainfluen 4 PCR NOT DETECTED 02/16/24 09:53 Nasal RSV (PCR) NOT DETECTED 02/16/24 09:53 Nasal Screen MRSA (PCR) NEGATIVE (NEGATIVE) 02/16/24 14:13 Nasal B.pertussis DNA PCR NOT DETECTED 02/16/24 09:53 Nasal C.pneumoniae (PCR) NOT DETECTED 02/16/24 09:53 Guzman Human Metapneumo PCR NOT DETECTED 02/16/24 09:53 Nasal M.pneumoniae (PCR) NOT DETECTED 02/16/24 09:53 Nasal SARS-CoV-2 (PCR) NOT DETECTED 02/16/24 09:53 Stl C. diff Tox B Gene NEGATIVE (NEGATIVE) 02/20/24 09:48 Ethyl Alcohol < 10.0 mg/dL 02/16/24 09:29
[2024-02-21] MEDS: amLODIPine 5 MG TABLET PO SCH (08:23)
[2024-02-21] MEDS: hydroCHLOROthiazide 25 MG TABLET PO SCH (08:23)
[2024-02-21] MEDS: LOSARTAN 50 MG TABLET PO SCH (08:23)
[2024-02-21] MEDS ORDERED: LOSARTAN PO SCH (09:00)
[2024-02-21] MEDS ORDERED: HYDROCHLOROTHIAZIDE PO SCH (09:00)
[2024-02-21] MEDS ORDERED: [UNRECOGNIZED DRUG - OTHER] PO SCH (09:00)
[2024-02-21] MEDS: INSULIN LISPRO 300 UNIT/3 ML PEN SUBQ SCH (20:45)
[2024-02-22 05:11] LABS: BASOPHILS % (AUTO) 0.6 %; EOSINOPHILS % (AUTO) 3.1 %; HCT - HEMATOCRIT 29.5 % (37.0-47.0); HGB - HEMOGLOBIN 9.5 g/dL (12.0-16.0); LYMPHOCYTES % (AUTO) 16.4 %; MEAN CORPUSCULAR HEMOGLOBIN 26.8 pg (27.0-31.0); MEAN CORPUSCULAR HGB CONC 32.2 g/dL (32.0-36.0); MEAN CORPUSCULAR VOLUME 83.1 fL (81.0-99.0); MEAN PLATELET VOLUME 9.8 fL (7.9-10.8); MONOCYTES % (AUTO) 11.9 %; NEUTROPHILS % (AUTO) 62.6 %; PLT - PLATELET COUNT 346 10^3/uL (130-450); RED BLOOD COUNT 3.55 10^6/uL (4.20-5.40); RED CELL DISTRIBUTION WIDTH 14.6 % (12.0-15.0); WHITE BLOOD COUNT 9.7 x10^3/uL (4.8-10.8)
[2024-02-22 05:21] LABS: ABNORMAL LYMPHS % (MANUAL) 0 %
[2024-02-22 05:30] LABS: CALCIUM 9.5 mg/dL (8.5-10.3); CREATININE 0.8 mg/dL (0.6-1.3); POTASSIUM 4.1 mmol/L (3.5-4.5)
[2024-02-22 06:10] LABS: BAND NEUTROPHILS % (MANUAL) 1 %; BASOPHILS # (MANUAL) 0.1 10^3/uL (0-0.1); BASOPHILS % (MANUAL) 1 %; DIFFERENTIAL COMMENT MANUAL DIFFERENTIAL; EOSINOPHILS # (MANUAL) 0.1 10^3/uL (0-0.7); LYMPHOCYTES # (MANUAL) 1.5 10^3/uL (1.5-3.5); LYMPHOCYTES % (MANUAL) 15 %; MONOCYTES # (MANUAL) 0.7 10^3/uL (0.0-1.0); NEUTROPHILS # (MANUAL) 7.4 10^3/uL (1.5-6.6); PLATELET ESTIMATE, MANUAL NORMAL (130-450,000) (NORMAL); RBC MORPHOLOGY (MULTIPLE) NORMAL APPEARANCE (NORMAL)
[2024-02-22 10:31] LABS: ESTIMATED AVERAGE GLUCOSE 214 mg/dL (70-100); HEMOGLOBIN A1c% 9.1 % (4.27-6.07)
--- NOTE | 2024-02-22 14:57 | Discharge Plan ---
Discharge Plan Problem Reviewed?: Yes Disposition: Home, Self Care Condition: Good Prescriptions: DULoxetine [Cymbalta] 60 mg PO DAILY #30 cap Atorvastatin [Lipitor] 40 mg PO QPM #30 tab Diet: Diabetic Activity Restrictions: Activity as Tolerated Shower Restrictions: No Driving Restrictions: No Assistance Devices: Walker Weight Bearing: Full Weight Instruction Topics: UTI Health Concerns: History of Present Illness per Dr. Duran Adams's history and physical: Patient is a 73-year-old female with a past medical history of insulin-dependent type 2 diabetes, hypertension who presented to the ED due to altered mental status. Patient reportedly been at her baseline at around 4 PM yesterday however she has been progressively becoming weaker and more confused. Of note, patient underwent a left extracorporal shockwave lithotripsy on 01/[address] Monae. In the ED she was noted to be severely septic with a lactic acid of 2.9. She was given a dose of IV ceftriaxone [address] abdomen/pelvis was performed which revealed evidence of mild to moderate left-sided hydronephrosis, likely postobstructive in nature. There is also sequelae of a recent left renal lithotripsy with numerous fragments of the proximal left ureter. Prior to arrival to the floor she was taken to the OR with urology where she underwent a cystoscopy with left ureteral stent placement. Shaw catheter was placed to aid in draining of purulent urine. She will need definitive stone management in the outpatient. Hospital Course: Evangelina García was admitted to the hospital and broad-spectrum antibiotic coverage was initiated with Zosyn. Treatment was transition to ceftriaxone the following day and the patient completed a 7-day course of IV antibiotics. Blood cultures were positive for E. coli that was pansensitive. Patient will be transition to levofloxacin as an outpatient and complete a 14- day course of antibiotics and then initiate Keflex 500 mg daily until she is able to undergo further treatment for her nephrolithiasis. Per urology she will need a left ureteroscopy and laser lithotripsy as an outpatient. Patient is hemodynamically stable and ambulating. She was evaluated by physical therapy and deemed safe to discharge to home. CODE STATUS upon discharge is full code. Plan of Treatment: 1. Continue all medications as prescribed. 2. With regard to your antibiotics, please complete course of levofloxacin 750 mg tablet 1 tablet daily for 7 days and then initiate cephalexin 500 mg daily. The cephalexin should be continued until urology states she do not need to take the medication anymore. 3. Recommend discussing with your primary care provider initiating a fast acting insulin to be taken with meals for improvement in serum glucose control. 4. Recommend following up with your primary care provider (Halle LIMA) in 2- 4 weeks. 5. Please obtain an appointment with Dr. Dov Be through his office. Care Goals: Goals of care is to complete treatment for E. coli septicemia and to follow-up with urology (Dr. Dov Be) for further treatment of nephrolithiasis Assessment: Evangelina García is a 73-year-old woman admitted on February 16, 2024 with sepsis secondary to urinary tract infection. During this hospitalization patient underwent cystoscopy with left-sided stent placement and will undergo definitive stone management as an outpatient. She was treated for an E. coli septicemia with ceftriaxone and will complete a course of antibiotics with levofloxacin as an outpatient. Patient will also continue suppressive therapy after completion of treatment with levofloxacin with cephalexin 500 mg daily until urology states she no longer needs this medication. No Smoking: If you smoke, Please STOP! Call for help. Follow-up with: HALLE HERNANDEZ PA-C [Physician No Access] -
[2024-02-22 15:38] VITALS: BP 123/78; O2SAT 93
--- NOTE | 2024-02-22 15:50 | DISCHARGE SUMMARY ---
"Discharge Summary Admit Date: 02/16/24 Discharge Date: 02/22/24 Discharging Provider: Abiel Cronin MD Primary Care Provider: Halle LIMA Code Status: Attempt Resuscitation Condition at Discharge: Good Discharge Disposition: 01 Home, Self Care Discharge Facility Name: [facility] - DIAGNOSES Admission Diagnoses: (1) Severe sepsis (2) Type 2 diabetes mellitus (3) Hypertension (4) Left ureteral stone (5) UTI (urinary tract infection) Discharge Diagnoses with Status of Each Condition: (1) Severe sepsis (2) Type 2 diabetes mellitus (3) Hypertension (4) Left ureteral stone (5) UTI (urinary tract infection) - HPI History of Present Illness: Patient is a 73-year-old female with a past medical history of insulin-dependent type 2 diabetes, hypertension who presented to the ED due to altered mental status. Patient reportedly been at her baseline at around 4 PM yesterday however she has been progressively becoming weaker and more confused. Of note, patient underwent a left extracorporal shockwave lithotripsy on 01/[address] Monae. In the ED she was noted to be severely septic with a lactic acid of 2.9. She was given a dose of IV ceftriaxone [address] abdomen/pelvis was performed which revealed evidence of mild to moderate left-sided hydronephrosis, likely postobstructive in nature. There is also sequelae of a recent left renal lithotripsy with numerous fragments of the proximal left ureter. Prior to arrival to the floor she was taken to the OR with urology where she underwent a cystoscopy with left ureteral stent placement. Shaw catheter was placed to aid in draining of purulent urine. She will need definitive stone management in the outpatient. - CONSULTS | PROCEDURES Consultations: 02/16/2024 Urology (Dr. Benny Monae) Procedures: 02/16/2024: 1. Cystoscopy with left ureteral stent placement - HOSPITAL COURSE Hospital Course: Evangelina García was admitted to the hospital and broad-spectrum antibiotic coverage was initiated with Zosyn. Treatment was transition to ceftriaxone the following day and the patient completed a 7-day course of IV antibiotics. Blood cultures were positive for E. coli that was pansensitive. Patient will be transition to levofloxacin as an outpatient and complete a 14- day course of antibiotics and then initiate Keflex 500 mg daily until she is able to undergo further treatment for her nephrolithiasis. Per urology she will need a left ureteroscopy and laser lithotripsy as an outpatient. Patient is hemodynamically stable and ambulating. She was evaluated by physical therapy and deemed safe to discharge to home. CODE STATUS upon discharge is full code. - ALLERGIES Allergies/Adverse Reactions: Allergies Allergy/AdvReac Type Severity Reaction Status Date / Time No Known Drug Allergies Allergy Verified 01/30/24 09:26 - MEDICATIONS Home Medications: Ambulatory Orders Medication Instructions Recorded Confirmed Aspirin EC [Ecotrin] 81 mg PO DAILY 11/15/23 02/17/24 Losartan/Hydrochlorothiazide 1 each PO DAILY 11/15/23 02/17/24 [Losartan-Hctz 100-12.5 mg Tab] Metformin HCl 1,000 mg PO BID 11/15/23 02/17/24 Rosuvastatin Calcium 20 mg PO QPM 11/15/23 02/17/24 amLODIPine [Norvasc] 5 mg PO DAILY 11/15/23 02/17/24 Metoprolol Succinate [Toprol Xl] 50 mg PO DAILY 12/19/23 02/17/24 DULoxetine [Cymbalta] 60 mg PO DAILY 02/16/24 02/17/24 Atorvastatin [Lipitor] 40 mg PO QPM #30 tab 02/22/24 DULoxetine [Cymbalta] 60 mg PO DAILY #30 cap 02/22/24 Insulin Glargine [Lantus Solostar] 27 unit SUBQ QPM #100 ml 02/22/24 02/17/24 cephALEXin [Keflex] 500 mg PO DAILY 28 Days #28 cap 02/22/24 levoFLOXacin [Levofloxacin] 750 mg PO DAILY #7 tab 02/22/24 - PHYSICAL EXAM AT DISCHARGE General Appearance: positive: No acute distress, Alert Eyes Bilateral: positive: Normal inspection, Conjunctivae nml Neck: positive: No JVD, Trachea midline Respiratory: positive: Other (Good air exchange in all lung donato no wheezing no crackles.) Cardiovascular: positive: Other (Positive S1-S2 no extra heart sounds.) Abdomen: positive: Nml bowel sounds, No distention Extremities: positive: Nml appearance, No pedal edema Neurologic/Psychiatric: positive: Oriented x3, Motor nml - LABS Result Diagrams: 02/22/24 04:54 02/22/24 04:54 - SEPSIS Current Stage of Sepsis: Resolved Possible source of Sepsis: Genitourinary Confirmed Source and Organism (if known) of Sepsis: Left Ureteral Stone - FOLLOW UP Follow Up: 1. Follow-up with JANIE Escobedo 2. Follow-up with Dr. Dov Be."
== END 2024-02-22 16:01 | disposition home or self-care (01) | DRG 854 ==
LOC: EDUNIT# → ED 09:02 → MS2 11:33 → ICU 13:36 → MS2 02-17 20:47
PROVIDERS: ADMIT Family Medicine; ATTEND Internal Medicine
PROC: 0T778DZ Dilation of Left Ureter with Intraluminal Device, Via Natural or Artificial Opening Endoscopic (ICD-10-PCS; principal; 2024-02-16 12:15)
DX: A41.9 Sepsis, unspecified organism (principal); N13.6 Pyonephrosis; G93.41 Metabolic encephalopathy; E11.9 Type 2 diabetes mellitus without complications; I10 Essential (primary) hypertension; E87.6 Hypokalemia; R65.20 Severe sepsis without septic shock; R79.89 Other specified abnormal findings of blood chemistry; Z20.822 Contact with and (suspected) exposure to COVID-19; Z20.828 Contact with and (suspected) exposure to other viral communicable diseases; H54.7 Unspecified visual loss; E78.00 Pure hypercholesterolemia, unspecified; K21.9 Gastro-esophageal reflux disease without esophagitis; F32.A Depression, unspecified; F41.9 Anxiety disorder, unspecified; Z79.4 Long term (current) use of insulin; Z79.84 Long term (current) use of oral hypoglycemic drugs; Z79.899 Other long term (current) drug therapy
CPT/HCPCS: 36415; 70450; 71045; 74176; 80048; 80053; 81001; 81599; 82306; 82330; 82607; 83036; 83605; 83690; 83735; 84100; 84132; 84484; 85025; 87040; 87086; 87150; 87181; 87493; 87633; 93005; 97116; 97162; 97166; 97530; 99285; A9270; C1758; C2617; G0480; J1650; J1815; J7120; 81003; 82077

== ENCOUNTER 2024-03-19 06:13 | Day surgery (SDC) | payer MEDICARE ==
[2024-03-19] MEDS ORDERED: ceFAZolin 2 GM VIAL ONE (06:16)
[2024-03-19] MEDS: LACTATED RINGERS 1,000 ML IV ONE ×2 (06:20→08:34)
[2024-03-19] MEDS ORDERED: ONDANSETRON 4 MG/2 ML VIAL ONE (07:17)
[2024-03-19] MEDS ORDERED: fentaNYL 100 MCG/2 ML VIAL ONE (07:17)
[2024-03-19] MEDS ORDERED: PROPOFOL 200 MG/20 ML VIAL IVP ONE (07:17)
[2024-03-19] MEDS ORDERED: LIDOCAINE-PF 2% 10 ML AMP SUBQ ONE (07:17)
--- NOTE | 2024-03-19 07:24 | ANESTHESIA ---
Pre-Anesthesia VS, & Labs - Diagnosis L ureteral stones - Procedure L lithotripsy, stent exchange Vital Signs: Temp Pulse Resp BP Pulse Ox O2 Flow Rate 36.6 C 84 16 137/88 H 99 0 03/19/24 06:32 03/19/24 06:32 03/19/24 06:32 03/19/24 06:32 03/19/24 06:32 03/19/24 06:32 Height: 5 ft 3 in Weight (kg): 78 kg Body Mass Index: 30.4 BMI Classification: Obese - NPO >8 hours - Is Patient ?: No - Lab Results Current Lab Results: Laboratory Tests 03/19/24 06:36: POC Whole Bld Glucose 120 H Home Medications and Allergies Aspirin EC [Ecotrin] 81 mg PO DAILY 11/15/23 Losartan/Hydrochlorothiazide [Losartan-Hctz 100-12.5 mg Tab] 1 each PO DAILY 11/15/23 Metformin HCl 1,000 mg PO BID 11/15/23 amLODIPine [Norvasc] 5 mg PO DAILY 11/15/23 Metoprolol Succinate [Toprol Xl] 50 mg PO DAILY 12/19/23 DULoxetine [Cymbalta] 60 mg PO DAILY 02/16/24 Allergies/Adverse Reactions: Allergies Allergy/AdvReac Type Severity Reaction Status Date / Time No Known Drug Allergies Allergy Verified 01/30/24 09:26 Anes History & Medical History - Anesthetic History Anesthesia Complications: reports: No previous complications Family history of Anesthesia Complications: Denies Family history of Malignant Hyperthermia: Denies - Medical History Cardiovascular: reports: Hypertension, High cholesterol Pulmonary: reports: None Gastrointestinal: reports: GERD Urinary: reports: Chronic bladder infection, Kidney stones Neuro: reports: Other Musculoskeletal: reports: Osteoarthritis, Osteopenia Endocrine/Autoimmune: reports: Type 2 diabetes Skin: reports: None Smoking Status: Never smoker Psychosocial: reports: No issues indicated - Surgical History General: reports: Colonoscopy Eyes Ears Nose Throat (EENT): reports: Cataracts Urologic: reports: Ureterolithotomy (stones) Orthopedic: reports: Carpal Tunnel surgery, Other Exam General: Alert, Oriented x3, Cooperative Dental: WNL Mouth Openin Fingerbreadth Neck Mobility: Normal Mallampati classification: II Thyromental Distance: 4-6 cm Respiratory: Lungs clear Cardiovascular: Regular rate Plan Anesthesia Type: General Consent for Procedure(s) Verified and Reviewed: Yes Code Status: Attempt Resuscitation ASA classification: 2-Mild systemic disease Is this case an emergency?: No
[2024-03-19] MEDS ORDERED: iohexoL-240 10 ML VIAL IVP ONE (07:25)
[2024-03-19] MEDS ORDERED: MIDAZOLAM 2 MG/2 ML VIAL ONE (07:32)
[2024-03-19] MEDS ORDERED: LIDOCAINE 2% URO-JET 5 ML SYRINGE UR ONE (07:35)
[2024-03-19] MEDS: LIDOCAINE 2% URO-JET 5 ML SYRINGE UR ONE (07:50)
[2024-03-19] MEDS ORDERED: KETOROLAC 30 MG/ML VIAL ONE (08:21)
[2024-03-19] MEDS ORDERED: HYDROcod/ACETAM 5/325 MG TABLET PO PRN (08:24)
[2024-03-19] MEDS ORDERED: ONDANSETRON 4 MG/2 ML VIAL IVP PRN ×2 (08:24→08:36)
--- NOTE | 2024-03-19 08:30 | Discharge Plan ---
Discharge Plan Problem Reviewed?: Yes Disposition: Home, Self Care Condition: Good Prescriptions: Docusate Sodium 100Mg Capsule [Colace 100Mg Capsule] 100 mg PO DAILY #7 cap oxyCODONE [Roxicodone] 5 mg PO Q4H PRN #10 tablet PRN Reason: Pain Diet: Regular Activity Restrictions: No Restrictions Shower Restrictions: No Driving Restrictions: No Instruction Topics: Stents Ureteral Additional Instructions or Follow Up instructions: You have a follow-up with Dr. Monae at 3:45 PM on March 23. Please arrive 15 minutes early No Smoking: If you smoke, Please STOP! Call for help.
--- NOTE | 2024-03-19 08:35 | OPERATIVE REPORT ---
Operative Report - General Procedure Date: 03/19/24 Planned Procedure: cystoscopy, left ureteroscopy, laser lithotripsy, stent exchange Pre-Op Diagnosis: Left ureteral stone Procedure Performed: cystoscopy, left ureteroscopy, laser lithotripsy, stent exchange Post Op Diagnosis: left kidney and ureteral stones - Procedure Note Primary Surgeon: Dov Anesthesia Provider: EVON Flowers Anesthesia Technique: General LMA Pathology: left kidney stones Findings: Cluster of left proximal ureteral stones, left lower pole stones removed Complications: none - Other Other Information/Narrative: After informed sent was obtained the patient was brought to the OR and laid in the supine position. The patient was anesthetized per anesthesia protocols and prepped and draped in usual sterile fashion in the dorsolithotomy position. A formal timeout was performed reconfirming the patient, procedure and laterality. A 22 Dutch cystoscope was advanced easily into urinary bladder. The bladder inspected and full and she was noted to have a stent emanating from her left ureteral orifice. A sensor wire was placed up into the kidney. Under fluoroscopy we could see that there was a cluster of radiopaque stones in the left proximal ureter along with a few stones scattered in her lower pole. Her old stent was grasped and removed en bloc A 16 Dutch Shaw catheter was placed to drain her bladder and a flexible ureteroscope was advanced easily up the left ureter to the proximal ureter where large cluster of radiopaque dark green/brown stones were seen. These seem to be broken up prior stones from the shockwave procedure. Using a 200 m laser fiber at a power of 0.8 and a rate of 8 we dusted the stones and turned into small fragments. We then inspected the kidney and found more stones which were also lasered to small fragments. Using a 1.9 Dutch basket we extracted the stones and sent them for analysis. On final fluoroscopy there were no significant radiopacity seen. We cleared the ureter under direct visualization. Her Shaw was removed. A 6 Dutch 26 centimeters double-J ureteral stent was placed with good curling noted in the kidney and good curling noted in the bladder. The bladder was emptied and a Uro-Jet was placed. This concluded the procedure. Patient tolerated the procedure well was brought to PACU without further incident. She will follow-up on Tuesday for stent removal in the office. She will remain on antibiotics until this time
[2024-03-19] MEDS ORDERED: MORPHINE 2 MG/ML CARPUJECT IVP PRN (08:36)
[2024-03-19] MEDS ORDERED: fentaNYL 100 MCG/2 ML VIAL IVP PRN (08:36)
[2024-03-19] MEDS ORDERED: ATROPINE ABBOJECT 1 MG/10 ML SYRINGE IVP PRN (08:36)
[2024-03-19] MEDS ORDERED: HYDROmorphone 0.5 MG/0.5 ML SYRINGE IVP PRN (08:36)
[2024-03-19] MEDS ORDERED: NALOXONE 0.4 MG/ML VIAL IVP PRN (08:36)
[2024-03-19] MEDS ORDERED: ePHEDrine 50 MG/ML VIAL IVP PRN (08:36)
[2024-03-19] MEDS ORDERED: LACTATED RINGERS 1,000 ML IV SCH (09:00)
[2024-03-19 09:07] VITALS: BP 129/77; O2SAT 99
--- NOTE | 2024-03-19 14:18 | ANESTHESIA POST OP EVALUATION ---
Anesthesia Post Eval - Post Anesthesia Eval Vitals: Last Vital Signs Temp 36.8 C 03/19/24 08:58 Pulse 67 03/19/24 08:58 Resp 14 03/19/24 08:58 BP 129/77 03/19/24 08:58 Pulse Ox 99 03/19/24 08:58 O2 Flow Rate 0 03/19/24 06:32 CV Function Including HR & BP: Stable Pain Control: Satisfactory Nausea & Vomiting: Negative Mental Status: Baseline Respiratory Status: Airway Patent Hydration Status: Satisfactory Anesthesia Complications: None
--- NOTE | 2024-03-19 17:52 | XRAY Report ---
PROCEDURE: OR C-Arm Procedure INDICATIONS: Ureteral stent exchange FLUORO TIME: 0.01 MIN TECHNIQUE: Single spot fluoroscopic image COMPARISON: None. FINDINGS: Single spot fluoroscopic image demonstrates catheter overlying the labeled right abdomen and pelvis. IMPRESSION: Single spot image with fluoroscopy time of 0.01 minutes. Reviewed by: Coretta Wade MD on 03/19/2024 5:50 PM PDT Approved by: Coretta Wade MD on 03/19/2024 5:50 PM PDT Station ID: [id number]
== END 2024-03-19 06:14 | disposition home or self-care (01) ==
LOC: SDS 06:13
PROVIDERS: ATTEND Urology
DX: N20.2 Calculus of kidney with calculus of ureter (principal); E66.9 Obesity, unspecified; Z68.30 Body mass index [BMI] 30.0-30.9, adult; I10 Essential (primary) hypertension; E78.00 Pure hypercholesterolemia, unspecified; K21.9 Gastro-esophageal reflux disease without esophagitis; E11.9 Type 2 diabetes mellitus without complications; Z79.82 Long term (current) use of aspirin; Z79.84 Long term (current) use of oral hypoglycemic drugs
CPT/HCPCS: 52356; 82365; C1758; C2617; J7120; Q9966

== ENCOUNTER 2024-05-27 15:27 | Outpatient (CLI) | payer MEDICARE | END 2024-05-27 23:59 | disposition short-term general hospital (02) | LOC: EMS 15:27 | DX: M25.551 Pain in right hip (principal); W18.39XA Other fall on same level, initial encounter; Y92.009 Unspecified place in unspecified non-institutional (private) residence as the place of occurrence of the external cause | CPT/HCPCS: A0425; A0427 ==

== ENCOUNTER 2024-07-05 15:15 | Outpatient (CLI) | payer MEDICARE | END 2024-07-05 15:16 | disposition EMS.NT | LOC: EMS 15:15 | DX: R53.1 Weakness (principal) ==

== ENCOUNTER 2024-07-05 18:35 | Outpatient (CLI) | payer MEDICARE | END 2024-07-05 18:36 | disposition short-term general hospital (02) | LOC: EMS 18:35 | DX: R39.89 Other symptoms and signs involving the genitourinary system (principal); R50.9 Fever, unspecified; R53.83 Other fatigue | CPT/HCPCS: A0425; A0429 ==